=== PATIENT | male | born 1940 | race African-American/Black ===

== ENCOUNTER 2016-10-08 10:16 | Inpatient (IN) ==
[2016-10-08] MEDS ORDERED: ALUM/MAG/SIMETH/LIDO VISC 1:1 30 ML BOTTLE PO STA (10:47)
[2016-10-08] MEDS ORDERED: PANTOPRAZOLE 40 MG VIAL IV STA (10:47)
[2016-10-08] MEDS ORDERED: SODIUM CHLORIDE 0.9% 500 ML IV STA (10:47)
[2016-10-08] MEDS ORDERED: ONDANSETRON 4 MG/2 ML VIAL IV STA (10:47)
[2016-10-08] MEDS ORDERED: HYDROmorphone 2 MG/1 ML VIAL IV STA ×2 (10:47→16:17)
[2016-10-08] MEDS ORDERED: HYDROmorphone 2 MG/1 ML VIAL ONE ×2 (11:04→16:10)
[2016-10-08] MEDS ORDERED: PANTOPRAZOLE 40 MG VIAL IV ONE (11:04)
[2016-10-08] MEDS ORDERED: ONDANSETRON 4 MG/2 ML VIAL ONE (11:04)
[2016-10-08] MEDS ORDERED: ALUM/MAG/SIMETH/LIDO VISC 1:1 30 ML BOTTLE PO ONE ×2 (11:05→11:07)
[2016-10-08 11:29] LABS: Eosinophils # 0.1 10*3/uL (0.0-0.87); Eosinophils % 0.9 % (0.00-10.9); Hematocrit 32.9 VOL% (42.0-52.0); Hemoglobin 9.2 GM/DL (14.0-18.0); Immature Granulocytes % 0.5 %; Immature Granulocytes Absolute 0.03 #; Lymphocytes # 0.6 10*3/uL (1.4-4.0); Lymphocytes % 9.7 % (21.2-54.2); Mean Corpuscular Hemoglobin 21 PG (27-34); Mean Corpuscular Volume 74.9 FL (87-102); Monocytes # 0.7 10*3/uL (0.11-0.8); Monocytes % 11.5 % (1.7-12.7); Neutrophils # 4.9 10*3/uL (1.4-7.4); Neutrophils % 77.4 % (38.7-73.9); Platelet Count 228 T/CUMM (130-400); Red Blood Count 4.39 MC/CUMM (3.8-5.5); Red Cell Distribution Width 18.2 % (9.3-17.3); White Blood Count 6.4 T/CUMM (4-12)
--- NOTE | 2016-10-08 11:54 | Emergency Department Note ---
Adams Bhat Meredith, am scribing for, and in the presence of, Juan J Hawkins MD 10:49. Shruthi Bhat Charles R, MD, personally performed the services described in this documentation, ascribed by Namrata Lamas in my presence, and it is both accurate and complete . Arrival - Arrival Chief Complaint: Abdominal / Flank Pain Stated Complaint: abdominal pain ED Nursing Triage Note: Brought in per EMS from [facility] with c/o lower abdominal pain onset 10/05/16. +nausea/vomiting. +decreased appetite. Last bowel movement yesterday. Mode of Arrival: Stretcher Limitations: No Limitations Source: Patient, Significant other, Old Records Reviewed, RN Notes Reviewed Time Seen by Provider: 10/08/16 10:44 - History of Present Illness HPI Narrative: Pt is a 76 y/o black male transferred to the ED by EMS from [facility] for further evaluation of lower abdominal pain which onset on 10/05/16. He confirms nausea, vomiting, and decreased appetite. Pt has a history of HTN, NIDDM, decreased kidney function, GERD, and colon cancer. He has had an appendectomy, cholecystectomy, and colostomy. Onset (ago): day(s) Allergies/Adverse Reactions: Allergies Allergy/AdvReac Type Severity Reaction Status Date / Time lisinopril Allergy Unknown/Unable Verified 10/08/16 10:25 to obtain Penicillins Allergy Unknown/Unable Verified 10/08/16 10:25 to obtain valsartan [From Diovan] Allergy Unknown/Unable Verified 10/08/16 10:25 to obtain Home Medications: Home Medications Medication Instructions Recorded Confirmed Type Allopurinol [Zyloprim] 100 mg PO QAM 10/06/16 10/08/16 History Aspirin EC Tab 81 mg PO QAM 10/06/16 10/08/16 History Carvedilol 25 mg PO BID 10/06/16 10/08/16 History Colchicine [Colcrys] 0.6 mg PO Q1H PRN 10/06/16 10/08/16 History Cyclobenzaprine HCl 5 mg PO TID #30 tablet 10/06/16 10/08/16 Rx Esomeprazole Magnesium 40 mg PO QAM 10/06/16 10/08/16 History [Esomeprazole] Furosemide Tab [Lasix Tab] 40 mg PO BID DIURETIC 10/06/16 10/08/16 History Meloxicam [Mobic] 15 mg PO DAILY #15 tablet 10/06/16 10/08/16 Rx Tamsulosin [Flomax] 0.4 mg PO BID 10/06/16 10/08/16 History glyBURIDE [Glyburide] 2.5 mg PO QAM 10/06/16 10/08/16 History hydrALAZINE TAB [Apresoline Tab] 50 mg PO BID 10/06/16 10/08/16 History Review of System - Review of System 12 point system: reviewed and no additional remarkable complaints except as stated - Review of System Gastrointestinal: Present: as per HPI, abdominal pain, nausea, vomiting, other ( decreased appetite) Medical,Surgical,& Family Hx - Medical History Cardio: History of: Hypertension Endocrine: History of: Diabetes Mellitus (NIDDM) Renal: History of: Renal Problems (decreased kidney fuction) Gastrointestinal: History of: GERD, GI Problems (colon ca 1986; colostomy) - Surgical History Abdominal Surgeries: Surgical HX of: Appendectomy, Cholecystectomy - Family History Family History: Denies;: Additional Family History - Social History Smoking Status: Never smoker Frequency of Alcohol Use: None Type of Drug Use: None Exam Vital Signs: Vital Signs Temperature 97.6 F 10/08/16 10:16 Pulse Rate 99 H 10/08/16 10:16 Respiratory Rate 18 10/08/16 10:16 Blood Pressure 140/84 10/08/16 10:16 O2 Sat by Pulse Oximetry 100 10/08/16 10:16 - General General appearance: alert, in no apparent distress - Head Head exam: Present: atraumatic, normocephalic - Eye Eye exam: Present: normal appearance, PERRL, EOMI - ENT ENT exam: Present: mucous membranes moist, normal external ear exam - Neck Neck exam: Present: full ROM, trachea midline. Absent: tenderness, meningismus , lymphadenopathy, thyromegaly - Chest Chest inspection: Present: symmetric chest wall rise. Absent: tenderness, rash - Respiratory Respiratory exam: Present: normal lung sounds bilaterally. Absent: respiratory distress - Cardiovascular Cardiovascular exam: Present: regular rate, normal rhythm, normal heart sounds. Absent: murmur, rubs, gallop - Abdominal Exam Abdominal exam: Present: distention, tenderness (right lower quadrant and periumbilical tenderness), other (colostomy noted). Absent: normal bowel sounds (high pitched, tinkling bowel sounds) - Extremities Exam Extremities exam: Present: full ROM, normal capillary refill, pedal edema (1+ bilaterally ). Absent: tenderness, calf tenderness - Back Exam Back exam: Present: full ROM. Absent: tenderness - Neurological Exam Neurological exam: Present: alert, oriented X3, CN II-XII intact. Absent: motor sensory deficit - Psychiatric Psychiatric exam: Present: normal affect, normal mood - Skin Skin exam: Present: warm, dry, intact, normal color Course - Consultations Consultation #1: Dr. Robbins will admit patient Time: 12:23 Results - Labs CBC & BMP: 10/08/16 11:23 10/08/16 Unknown Lab Results: I have reviewed the patients labs Labs: Laboratory Tests 10/08/16 Unknown Lactic Acid 1.1 10/08/16 10/08/16 11:23 Unknown WBC 6.4 RBC 4.39 Hgb 9.2 L Hct 32.9 L MCV 74.9 L MCH 21 L MCHC 28.0 L RDW 18.2 H Plt Count 228 Neut % (Auto) 77.4 H Lymph % (Auto) 9.7 L Lymph # (Auto) 0.6 L Sodium 143 Potassium 4.4 Chloride 108 H Carbon Dioxide 23 Anion Gap 16.4 H BUN 60 H Creatinine 4.90 H Glucose 108 H Magnesium 1.6 L ALT < 9 L Alkaline Phosphatase 194 H Albumin 3.1 L Albumin/Globulin Ratio 0.9 L - Diagnostic Findings Procedure: Abdominal x-ray: report reviewed by me (Questionable partial small bowel obstruction with multiple surgical clips present in dilated small bowel and stomach. Relatively very little large bowel gas is present. At minimum abdominal ileus present. ), Chest x-ray: report reviewed by me (No acute cardiopulmonary process. ), CT Abdomen and Pelvis: report reviewed by me ( Limited exam secondary to lack of intravenous or oral contrast material. ) Disposition Clinical Impression: Abdominal pain, Small bowel obstruction, Chronic renal failure, Hypomagnesemia Case discussed with: patient, patient's family Disposition: Still a Patient Condition: Stable Time of Disposition: 12:25
--- NOTE | 2016-10-08 12:01 | XRay Report ---
Exam: XR chest 1V portable Date: 10/08/2016 10:48 AM Indication: Abdominal pain Comparison: 06/02/2014 Technical: AP Findings: Borderline cardiac prominence present. External cardiac leads are present. Mediastinum and bony structures are otherwise intact. The lungs are clear. Impression: 1. No acute cardiopulmonary pathology PROCEDURE INTERPRETED AT [facility] DEPARTMENT OF RADIOLOGY Final Report Signed by: Dr. Ernie Rapp
[2016-10-08 12:02] LABS: Lactic Acid 1.1 MMOL/L (0.4-2.0)
--- NOTE | 2016-10-08 12:02 | EKG Report ---
Stationary ECG Study [facility] ER Test Date: 10/08/2016 12:00:08 PM Pat Name: ADWOA PENA Department: Room: Gender: M Issue Clerk: : 1940 Requested by: Juan J Meyer Order Number: [id number] Reading MD: MYA POWELL Intervals [place] Rate: 94 P: 41 NV: 182 QRS: -24 QRSD: 95 T: -16 QT: 343 QTc: 395 Interpretive Statements SINUS RHYTHM VOLTAGE CRITERIA FOR LVH LEFT AXIS DEVIATION Electronically Signed On 10-08-16 12:59:27 [employer] WORK[employer] by MYA POWELL [email or web address]
--- NOTE | 2016-10-08 12:04 | CT Report ---
CT abdomen pelvis wo con Indication: Abdominal/pelvic pain Comparison: CT abdomen pelvis dated October 20, 2011 Technique: Multiple axial tomographic images of the abdomen and pelvis were obtained without the use of intravenous contrast. Findings: Innumerable predominantly small hypodense hepatic lesions are again demonstrated throughout the liver, similar in size and distribution considering change in technique. Gallbladder surgically absent. Pancreas and spleen appear grossly unchanged. Bilateral adrenal glands grossly unremarkable. Moderate bilateral hydronephrosis. Irregular soft tissue attenuation again noted within the rectal/presacral region. Multiple clips again noted within the presacral space. There are 2 hernia defects within the left mid abdomen containing small bowel, 1 the site of prior ostomy. Left lower quadrant colostomy noted. There is dilatation of small bowel with air-fluid levels throughout the abdomen with transition point suggested within the presacral region adjacent to the surgical clips. Findings suggest small bowel obstruction. Anastomotic suture material also noted within the right lower quadrant adjacent to the presacral space which may reflect a site of transition. Mild atherosclerotic calcifications present. Right total hip prosthesis. Degenerative change of the spine present. Hyperdensity noted throughout the osseous structures suggestive of renal osteodystrophy. IMPRESSION: Limited exam secondary to lack of intravenous and oral contrast material. Findings suspicious for small bowel obstruction with transition suggested within the presacral/right lower quadrant region at the site of surgical clips and anastomotic suture material. Moderate bilateral hydronephrosis. There are postoperative changes of the abdomen. There are 2 hernia defects within the left mid abdomen containing small bowel, 1 the site of prior ostomy. Left lower quadrant colostomy noted. There has been prior colectomy with irregular soft tissue attenuation within the presacral/rectal space, not significantly changed from comparison study. Innumerable predominantly small hypodense hepatic lesions are again demonstrated throughout the liver, similar in size and distribution considering change in technique. PROCEDURE INTERPRETED AT [facility] DEPARTMENT OF RADIOLOGY Final Report Signed by: Dr Lebron Lehman
--- NOTE | 2016-10-08 12:05 | XRay Report ---
Exam: XR abdomen complete w decub Date: 10/08/2016 10:48 AM Indication: Abdominal pain Comparison: 10/06/2016 Technical: Supine imaging Findings: Multiple surgical clips are present. Dilated gastric findings present. Dilated small bowel loops are present in the left lower abdomen measuring up to 4.7 cm. A right total hip prosthesis is present. The liver, spleen and renal shadows are not well seen. Lateral marginal osteophytes are present. No obvious pneumoperitoneum on supine images. Impression: Questionable partial small bowel obstruction with multiple surgical clips present in dilated small bowel and stomach. Relatively very little large bowel gas is present. At minimum abdominal ileus present. PROCEDURE INTERPRETED AT [facility] DEPARTMENT OF RADIOLOGY Final Report Signed by: Dr. Ernie Rapp
[2016-10-08 12:13] LABS: Hypochromasia 1+; Polychromasia Slight; Target Cells Slight
[2016-10-08 12:18] LABS: Alanine Aminotransferase < 9 U/L (16-61); Albumin 3.1 G/DL (3.4-5.0); Alkaline Phosphatase 194 U/L (45-117); Amylase 26 U/L (25-115); Aspartate Amino Transferase 9 U/L (0-37); Blood Urea Nitrogen 60 MG/DL (7-18); Calcium 8.9 MG/DL (8.5-10.1); Glucose 108 MG/DL (74-106); Magnesium 1.6 MG/DL (1.8-2.4); Potassium 4.4 MMOL/L (3.5-5.1); Sodium 143 MMOL/L (136-145); Total Protein 6.4 G/DL (6.4-8.3); Troponin I Only < 0.015 NG/ML (0.00-0.045)
[2016-10-08] MEDS ORDERED: MAGNESIUM SULF RIDER 2 GM in PREMIX 1 EACH IV STA (12:23)
--- NOTE | 2016-10-08 13:21 | XRay Report ---
Exam: XR chest 1V portable Date: 10/08/2016 12:56 PM Indication: Nasogastric tube placement Comparison: 10/08/201611:49 AM same date Technical: AP portable Findings: Nasogastric tube has been placed with the distal tip in the stomach. Mild cardiac prominence. Patchy interstitial alveolar densities are present. No pneumothorax. Bony structures are intact. Impression: 1. Satisfactory placement nasogastric tube 2. Persistent cardiomegaly PROCEDURE INTERPRETED AT [facility] DEPARTMENT OF RADIOLOGY Final Report Signed by: Dr. Ernie Rapp
[2016-10-08] MEDS ORDERED: ACETAMINOPHEN 325 MG TABLET PO PRN (14:00)
[2016-10-08] MEDS ORDERED: LACTATED RINGERS 1,000 ML IV SCH (14:00)
--- NOTE | 2016-10-08 14:54 | General Surg History&Physical ---
Assessment and Plan - Time spent with patient Time spent with patient: Less than 30 minutes (1) Small bowel obstruction Status: Acute Assessment and plan: 76-year-old -[place] male with history of colorectal cancer, hypertension, diabetes, renal failure admitted by Dr. Landry with small bowel obstruction. Patient is undergone multiple abdominal surgeries with the last one being in 2011. NG tube has already been placed with greater than 500 cc of output. He does have output in his ostomy bag. His abdomen is now soft and nontender. Will admit the patient for observation and try to resolve the small bowel obstruction conservatively. Patient's creatinine is 4.9 and he is a patient of Dr. Vazquez so will consult him to follow. We will also consult hospitalist for medical management of this patient with diabetes and hypertension on n.p.o. status. Dr. Landry has seen and examined patient. Current Visit: Yes History of Present Illness Chief complaint: Abdominal pain History of present illness: 76-year-old -[place]oc[place] male with history of diabetes, hypertension, renal failure with baseline creatinine around 4-4.5, colorectal cancer came into the ED with a 3 day history of abdominal pain, nausea, vomiting. He came into the ED on 10/06 with complaints of lower abdominal pain, bilateral hip pain , and lower back pain. Patient felt it was a an allergic reaction to some prednisone he received from his primary care doctor. Dr. Ochoa felt it was suggestive of exacerbation of his chronic low back pain and bilateral hip pain. Patient did not have an acute abdomen at that time and he declined further evaluation including blood work and CT scan. Patient stated that he would return if symptoms progressed. Patient states in the last 24 hours the pain is increased along with the nausea and vomiting. Patient states he did have a bowel movement yesterday. Patient has a history of multiple abdominal surgeries. He had colorectal cancer surgery in 1985 with a left lower quadrant colostomy. He was last seen here in October 2011 for partial colectomy with new end colostomy in the left upper quadrant, repair of an incarcerated parastomal hernia with preperitoneal placement of mesh with perforated colon and associated peritonitis. He had sepsis and acute renal failure and elevated troponins at that time. He has also had 2 hernia repairs, cholecystectomy, back surgery, and hip surgery. Today his workup showing abdominal x-ray with questionable partial small bowel obstruction with multiple surgical clips present in a dilated small bowel and stomach. It is also showing very little large bowel gas present. CT of the abdomen and pelvis without contrast is suspicious for small bowel obstruction with transition suggested within the presacral or right lower quadrant region at the site of surgical clips and anastomotic suture material. There are 2 hernia defects within the left mid abdomen containing small bowel one at the site of the prior ostomy. Patient also has small hypodense hepatic lesions demonstrated throughout the liver that are similar in size and distribution to his last CT scan. His white blood cell count is normal at 6.4, H&H is 9.2/32.9, platelets 228, creatinine is 4.9, magnesium 1.6, LFTs okay, ALP mildly elevated at 194, lipase normal at 79. Patient is afebrile with pulse rate around 99 and blood pressure 140/84. Upon exam patient has NG tube placed with copious amounts of creamy yellow output. His abdomen is obese with multiple well-healed scars throughout the abdomen from his previous surgeries. He has no complaints of pain. He denies any shortness of breath or chest pain. He does have a left lower quadrant ostomy with almost a full bag of runny stool. Dr. Landry has been asked to admit. Home Medications Medication Instructions Recorded Confirmed Type Allopurinol [Zyloprim] 100 mg PO QAM 10/06/16 10/08/16 History Aspirin EC Tab 81 mg PO QAM 10/06/16 10/08/16 History Carvedilol 25 mg PO BID 10/06/16 10/08/16 History Colchicine [Colcrys] 0.6 mg PO Q1H PRN 10/06/16 10/08/16 History Cyclobenzaprine HCl 5 mg PO TID #30 tablet 10/06/16 10/08/16 Rx Esomeprazole Magnesium 40 mg PO QAM 10/06/16 10/08/16 History [Esomeprazole] Furosemide Tab [Lasix Tab] 40 mg PO BID DIURETIC 10/06/16 10/08/16 History Meloxicam [Mobic] 15 mg PO DAILY #15 tablet 10/06/16 10/08/16 Rx Tamsulosin [Flomax] 0.4 mg PO BID 10/06/16 10/08/16 History glyBURIDE [Glyburide] 2.5 mg PO QAM 10/06/16 10/08/16 History hydrALAZINE TAB [Apresoline Tab] 50 mg PO BID 10/06/16 10/08/16 History Allergies Allergy/AdvReac Type Severity Reaction Status Date / Time lisinopril Allergy Unknown/Unable Verified 10/08/16 10:25 to obtain Penicillins Allergy Unknown/Unable Verified 10/08/16 10:25 to obtain valsartan [From Diovan] Allergy Unknown/Unable Verified 10/08/16 10:25 to obtain Medical,Surgical,& Family Hx - Medical History Cardio: History of: Hypertension Endocrine: History of: Diabetes Mellitus (NIDDM) Renal: History of: Renal Problems (decreased kidney fuction) Gastrointestinal: History of: GERD, GI Problems (colon ca 1985; colostomy) - Surgical History Abdominal Surgeries: Surgical HX of: Appendectomy, Cholecystectomy - Family History Family History: Denies;: Additional Family History - Social History Smoking Status: Never smoker Frequency of Alcohol Use: None Type of Drug Use: None Exam - Constitutional Vitals: Period Temp Pulse Resp BP Sys/Cotto Pulse Ox Last 24 Hr 97.6 F-97.6 F 99-99 18-18 140-140/84-84 100 76-year-old -[place]oc[place] male, no acute distress, alert and oriented is present Chest clear CV regular rate and rhythm Abdomen obese nontender, well-healed scars from previous surgeries, ostomy in left lower quadrant with good output Extremities mild pedal edema - Constitutional Constitutional: Present: as per HPI Results - Labs CBC & BMP: 10/08/16 11:23 10/08/16 Unknown Lab Results: I have reviewed the past 24 hour labs - Diagnostic Findings Procedure: Abdominal Flat/Erect: image reviewed by me, report reviewed by me ( Questionable small bowel obstruction), CT Abdomen and Pelvis: image reviewed by me, report reviewed by me (Questionable small bowel obstruction)
--- NOTE | 2016-10-08 15:05 | XRay Report ---
XR abdomen complete w decub Indication: Generalized abdominal pain Comparison: Abdominal x-ray dated October 08, 2016 at 1114 Technique: Frontal views of the abdomen and the supine and left lateral decubitus position. Findings: Redemonstration of moderate to large dilatation of small bowel within the left abdomen suspicious for small bowel obstruction. Finding is not significantly changed from comparison exam. Multiple surgical clips again noted throughout the abdomen and pelvis. Osseous structures appear unchanged. There is total right hip prosthesis as well as degenerative change of the lumbar spine noted. IMPRESSION: No significant interval change. Findings again suspicious for small bowel obstruction. PROCEDURE INTERPRETED AT [facility] DEPARTMENT OF RADIOLOGY Final Report Signed by: Dr Lebron Lehman
--- NOTE | 2016-10-08 15:13 | Nephrology Consult Note ---
History of Present Illness Chief complaint: SBO, CKD4 History of present illness: Mr. Weir is a 76 year old male with a history of chronic renal failure stage IV. His creatinine in July in our office was 4.8. He has gout by history and now presents with small bowel obstruction. The status post bowel surgery in the remote past. He has been unable to eat for 4 days but has been able to keep water down he says if he drinks anything other than watery vomits knees had no appetite and been unable to eat for the 4 days. On exam his chest is clear and he is able to lie flat. He has 1+ edema of both legs his abdomen is soft. An NG tube is in place and draining yellow gastric contents with no evidence of bleeding. Laboratory demonstrates creatinine of 4.9 which is compatible with his baseline. Impression: Small bowel obstruction #2 chronic renal failure stage IV #3 history of hypertension Plan: Agree with NG suction and fluid administration. We will follow with you thank you Home Medications Medication Instructions Recorded Confirmed Type Allopurinol [Zyloprim] 100 mg PO QAM 10/06/16 10/08/16 History Aspirin EC Tab 81 mg PO QAM 10/06/16 10/08/16 History Carvedilol 25 mg PO BID 10/06/16 10/08/16 History Colchicine [Colcrys] 0.6 mg PO Q1H PRN 10/06/16 10/08/16 History Cyclobenzaprine HCl 5 mg PO TID #30 tablet 10/06/16 10/08/16 Rx Esomeprazole Magnesium 40 mg PO QAM 10/06/16 10/08/16 History [Esomeprazole] Furosemide Tab [Lasix Tab] 40 mg PO BID DIURETIC 10/06/16 10/08/16 History Meloxicam [Mobic] 15 mg PO DAILY #15 tablet 10/06/16 10/08/16 Rx Tamsulosin [Flomax] 0.4 mg PO BID 10/06/16 10/08/16 History glyBURIDE [Glyburide] 2.5 mg PO QAM 10/06/16 10/08/16 History hydrALAZINE TAB [Apresoline Tab] 50 mg PO BID 10/06/16 10/08/16 History Allergies Allergy/AdvReac Type Severity Reaction Status Date / Time lisinopril Allergy Unknown/Unable Verified 10/08/16 10:25 to obtain Penicillins Allergy Unknown/Unable Verified 10/08/16 10:25 to obtain valsartan [From Diovan] Allergy Unknown/Unable Verified 10/08/16 10:25 to obtain Medical,Surgical,& Family Hx - Medical History Cardio: History of: Hypertension Endocrine: History of: Diabetes Mellitus (NIDDM) Renal: History of: Renal Problems (decreased kidney fuction) Gastrointestinal: History of: GERD, GI Problems (colon ca 1985; colostomy) - Surgical History Abdominal Surgeries: Surgical HX of: Appendectomy, Cholecystectomy - Family History Family History: Denies;: Additional Family History - Social History Smoking Status: Never smoker Frequency of Alcohol Use: None Type of Drug Use: None Review of Systems 12 point system: reviewed and no additional remarkable complaints except as stated Exam - Vital Signs Vital signs: Period Temp Pulse Resp BP Sys/Cotto Pulse Ox Last 24 Hr 97.6 F-97.6 F 99-99 18-18 140-140/84-84 100 - General Appearance General appearance: obese EENT: ATNC Neck: no JVD, no thyromegaly, no carotid bruit, supple Respiratory: no kyphosis, no scoliosis Cardiology: no murmurs, no rub, no gallops, no edema, regular rate, regular rhythm, normal S1, normal S2 Gastrointestinal: no tenderness, obese Integumentary: no rash, warm and dry Neurologic: no focal deficit, no asterixis, alert and oriented x3, reflexes 2+ and symmetric, gait normal, strength 5/5 Musculoskeletal: no deformities, no erythema, no cyanosis, no clubbing Psychiatric: mood/affect appropriate, cooperative Results - Labs CBC & BMP: 10/08/16 11:23 10/08/16 Unknown Lab Results: I have reviewed the past 24 hour labs Assessment and Plan (1) Chronic renal failure Status: Acute Current Visit: Yes (2) Small bowel obstruction Status: Acute Current Visit: Yes Specialty Discharge - Follow Up or Referrals - Speciality Discharge Instructions Nephrology Instructions: Fluid support during NG suction
[2016-10-08] MEDS: PANTOPRAZOLE 40 MG VIAL IV SCH (17:25)
[2016-10-08] MEDS: CARVEDILOL 25 MG TABLET PO SCH ×2 (17:30→21:02)
[2016-10-08] MEDS: TAMSULOSIN 0.4 MG CAPSULE PO SCH ×2 (17:30→21:02)
[2016-10-08] MEDS: FUROSEMIDE 40 MG TABLET PO SCH (17:30)
[2016-10-08] MEDS: CYCLOBENZAPRINE 10 MG TABLET PO SCH ×2 (17:30→21:02)
[2016-10-08] MEDS: DEXTROSE 5% NACL 0.45% 1,000 ML IV SCH (17:54)
--- NOTE | 2016-10-08 18:15 | Hospitalist Consult Note ---
Assessment and Plan (1) Abdominal pain Status: Acute Current Visit: Yes (2) Chronic renal failure Status: Acute Current Visit: Yes (3) Hypomagnesemia Status: Acute Current Visit: Yes (4) Small bowel obstruction Status: Acute Current Visit: Yes (5) Chronic hip pain Status: Acute Current Visit: No (6) Chronic low back pain Status: Acute Current Visit: No (7) Diffuse abdominal pain Status: Acute Current Visit: No (8) Diabetes Status: Acute Current Visit: Yes (9) Hypertension Status: Acute Assessment and plan: Our plan will be to follow along with you. I will address diabetes and hypertension. Currently patient is nothing by mouth. He needs some IV medication for his blood pressure and a sliding scale for his diabetes. Recommend repeating labs in the morning. Current Visit: Yes History of Present Illness - Consult Narrative Reason for consult: medical issues History of present illness: Mr. Weir is a 76 year old male with past medical history of diabetes hypertension chronic renal insufficiency colorectal cancer presented to the emergency room with abdominal pain nausea vomiting. Symptoms have been going on for approximately 3 days. He was in the emergency room on the complaining about lower abdominal pain, or hip pain. But they felt that it was a exacerbation of his chronic pain. Patient informed staff that for the last 24 hours the pain in his abdomen has increased along with the nausea and vomiting. He did have a bowel movement yesterday. This patient has had multiple abdominal surgeries. He had colorectal surgery 1995 with a left lower quadrant colostomy. He also had 2 hernia repairs cholecystectomy back and hip surgery. Today the workup was done with a CT scan of the abdomen and pelvis suspicious for small bowel obstruction. He was admitted to surgery service and a consult at both nephrology and hospitalist for his medical problems CC: Shaun Landry MD - Home Medications and Allergies Home Medications: Home Medications Medication Instructions Recorded Confirmed Type Allopurinol [Zyloprim] 100 mg PO QAM 10/06/16 10/08/16 History Aspirin EC Tab 81 mg PO QAM 10/06/16 10/08/16 History Carvedilol 25 mg PO BID 10/06/16 10/08/16 History Colchicine [Colcrys] 0.6 mg PO Q1H PRN 10/06/16 10/08/16 History Esomeprazole Magnesium 40 mg PO QAM 10/06/16 10/08/16 History [Esomeprazole] Furosemide Tab [Lasix Tab] 40 mg PO BID DIURETIC 10/06/16 10/08/16 History Tamsulosin [Flomax] 0.4 mg PO BID 10/06/16 10/08/16 History glyBURIDE [Glyburide] 2.5 mg PO QAM 10/06/16 10/08/16 History hydrALAZINE TAB [Apresoline Tab] 50 mg PO BID 10/06/16 10/08/16 History Allergies/Adverse Reactions: Allergies Allergy/AdvReac Type Severity Reaction Status Date / Time lisinopril Allergy Unknown/Unable Verified 10/08/16 10:25 to obtain Penicillins Allergy Unknown/Unable Verified 10/08/16 10:25 to obtain valsartan [From Diovan] Allergy Unknown/Unable Verified 10/08/16 10:25 to obtain Medical,Surgical,& Family Hx - Medical History Cardio: History of: Hypertension Endocrine: History of: Diabetes Mellitus (NIDDM) Renal: History of: Renal Problems (decreased kidney fuction) Gastrointestinal: History of: GERD, GI Problems (colon ca 1985; colostomy) - Surgical History Abdominal Surgeries: Surgical HX of: Appendectomy, Cholecystectomy - Family History Family History: Denies;: Additional Family History - Social History Smoking Status: Never smoker Frequency of Alcohol Use: None Type of Drug Use: None 12 point system: reviewed and no additional remarkable complaints except as stated Exam - Constitutional General appearance: over weight - Head Head exam: Present: normal inspection - Eye Pupils: Present: BELLE - ENT ENT exam: Present: normal exam - Neck Neck exam: Present: normal inspection - Respiratory Respiratory exam: Present: clear to auscultation bilaterally - Cardiovascular Cardiovascular exam: Present: regular rate and rhythm - GI/Abdominal GI/Abdominal exam: Present: hypoactive bowel sounds - Extremities Exam Extremities exam: Present: normal inspection - Back Exam Back exam: Present: normal inspection - Neurological Exam Neurological exam: Present: alert, oriented X3 - Psychiatric Psychiatric exam: Present: normal affect Results - Labs CBC & BMP: 10/08/16 11:23 10/08/16 Unknown
[2016-10-08] MEDS ORDERED: INFLUENZA VIRUS VACCINE 0.5 ML SYRINGE IM ONE (18:36)
[2016-10-08] MEDS ORDERED: PNEUMOCOCCAL VACCINE (13 VALENT) 0.5 ML SYRINGE IM ONE (18:36)
[2016-10-08] MEDS ORDERED: GLUCAGON 1 MG VIAL IM PRN (18:56)
[2016-10-08] MEDS ORDERED: DEXTROSE 50% 25 GM/50 ML VIAL IV PRN (18:56)
[2016-10-08] MEDS ORDERED: hydrALAZINE 20 MG/1 ML VIAL IV PRN (18:57)
[2016-10-08] MEDS: HYDROmorphone 2 MG/1 ML VIAL IV PRN (21:37)
[2016-10-09] MEDS: INSULIN REGULAR 100 UNIT/ML SUBCUT SCH ×4 (00:24→19:04)
[2016-10-09] MEDS: DEXTROSE 5% NACL 0.45% 1,000 ML IV SCH ×4 (03:16→22:32)
[2016-10-09 08:08] LABS: Basophils % 0.2 % (0.0-0.8); Eosinophils # 0.1 10*3/uL (0.0-0.87); Eosinophils % 2.4 % (0.00-10.9); Hematocrit 31.7 VOL% (42.0-52.0); Immature Granulocytes % 0.4 %; Immature Granulocytes Absolute 0.02 #; Lymphocytes # 0.5 10*3/uL (1.4-4.0); Lymphocytes % 10.2 % (21.2-54.2); Mean Corpuscular HGB Conc 27.4 GM/DL (32-36); Mean Corpuscular Hemoglobin 21 PG (27-34); Mean Corpuscular Volume 76.6 FL (87-102); Monocytes # 0.7 10*3/uL (0.11-0.8); Monocytes % 14.3 % (1.7-12.7); Neutrophils # 3.6 10*3/uL (1.4-7.4); Neutrophils % 72.5 % (38.7-73.9); Platelet Count 246 T/CUMM (130-400); Red Blood Count 4.14 MC/CUMM (3.8-5.5); Red Cell Distribution Width 18.2 % (9.3-17.3)
[2016-10-09 08:09] LABS: Hemoglobin 8.7 GM/DL (14.0-18.0)
--- NOTE | 2016-10-09 08:09 | CT Report ---
Exam: CT abdomen pelvis wo con Date: 10/09/2016 718 AM Comparison: 10/08/2016 without contrast Indication: Small bowel obstruction Total DLP: 907.5 mGy*cm Technical: Oral contrast was administered. Images were obtained from the lung bases to the iliac crest continuation through the pelvis without oral contrast with axial sagittal coronal imaging available for review. Dose reduction was performed with decreasing kv and mA and automated exposure Findings: Lung bases: No obvious consolidating infiltrate. Tiny effusions and pleural thickening are present. The heart is normal in size. Liver and Spleen: Too numerous to count cysts are present within the liver with some calcifications. Spleen is unremarkable. Gallbladder and Pancreas: Prior cholecystectomy. The pancreas is unremarkable. Adrenals: Unremarkable Kidneys: Bilateral dilatation of the renal collecting system and dilated ureters are present extending into the pelvis bilaterally. This is worse on the right in the left. Stomach: Partially distended with oral contrast and air fluid and debris with nasogastric tube in place. Retroperitoneum: No enlarged lymph nodes. Aorta and IVC: Vascular calcinosis and plaque in the aorta and iliac vessels. Aorta and IVC are not otherwise evaluated without contrast Bowel and Mesentery: Dilated small bowel loops are present with a spigelian hernia present with bowel extending into the hernia in the left lower abdomen. . Ostomy is present adjacent to the hernia sac. Ventral hernia is present also with bowel extending towards the left just adjacent to the periumbilical region. No obvious contrast within the ileal region or large bowel. Surgical clips present over the right lower bowel and in the deep pelvis. Surgical clips present along the right anterior abdominal wall extending towards the midline. Pelvis: Bladder: Incompletely distended with fluid Fluid: No free fluid identified. Lymph nodes: No enlarged lymph nodes. Pelvic organs: Unremarkable Osseous structures: Right total hip prosthesis is present with the morning artifact. Impression: 1. Large spigelian hernia/ ventral hernia with bowel extending into the hernia suggestive of a component of partial small bowel obstruction.. Ostomy is also present left lower quadrant. 2. Multiple surgical changes noted. 3. Bilateral hydronephrosis present. Distal obstruction of the ureters associated with scarring or recurrent disease in the posterior aspect the bladder and lower rectal region with surgical clips present. 4. Polycystic liver disease 5. Prior cholecystectomy. Critical test result called to Dr. Robbins at the time of dictation PROCEDURE INTERPRETED AT [facility] DEPARTMENT OF RADIOLOGY Final Report Signed by: Dr. Ernie Rapp
[2016-10-09 08:16] LABS: Calcium 8.6 MG/DL (8.5-10.1); Osmolality,Calculated 305.8 MOS/KG (273-304); Potassium 4.2 MMOL/L (3.5-5.1)
[2016-10-09 08:27] LABS: Elliptocytes Few; Hypochromasia Slight; Platelet Estimate Normal
[2016-10-09 08:28] LABS: Ovalocytes Slight
--- NOTE | 2016-10-09 08:30 | General Surgery Progress Note ---
Assessment and Plan (1) Small bowel obstruction Status: Acute Assessment and plan: Impression: Partial small bowel obstruction, ventral hernias Plan: Patient overall feels better. We'll continue NG tube decompression. I' ve reviewed with the CT images and discussed them with Dr. Rapp. Dr. Rapp suspects partial bowel bowel obstruction due to the hernia but I'm able to easily reduce it. His pain seems to be more on the right than near the hernia. Is no obvious transition point on the CT scan. He has liver masses that he states has been there since 1985. He was told they were benign at the time of his bowel resection. We'll check a CEA and alpha-fetoprotein to make sure there is no evidence of recurrence or anything new in the liver. He has renal insufficiency and Dr. Rapp notes that the ureters are involved in scar tissue in the pelvis and feels that they are possibly both partially compressed noting changes from previous CT scans. Will consult urology to see if he needs further evaluation and possible stenting. Nephrology and Hospital medicine are following and appreciate their help. Will recheck abdominal x- rays in the morning and repeat his labs tomorrow. Continue conservative management. He understands that if he fails to improve he may require laparotomy. Current Visit: Yes Subjective Patient reports: Present: no new complaints, feels better Narrative: Patient was feeling much better this morning Until he got the contrast administered and began to have a little bit more pain. He states overall he feels better since admission. He's had about 50 mL out of his stoma since the VAC was changed last night. Minimal amount of air present. Exam - Constitutional Vitals: Period Temp Pulse Resp BP Sys/Cotto Pulse Ox Last 24 Hr 98.2 F-98.4 F 88-96 17-20 105-142/66-89 96-100 General appearance: no acute distress - Head Head exam: Present: normocephalic - ENT Mouth exam: Present: normal external inspection - Neck Neck exam: Present: normal inspection - Respiratory Respiratory exam: Present: clear to auscultation bilaterally - Cardiovascular Cardiovascular exam: Present: RRR - GI/Abdominal GI/Abdominal exam: Present: soft (obese and possibly mildly distended. Hypoactive bowel sounds. Minimal tenderness elicited. No peritoneal signs. He has a reducible left abdominal wall hernia. His tenderness is just to the right of midline and very mild.) - Extremities Exam Extremities exam: Present: normal inspection - Back Exam Back exam: Present: normal inspection - Neurological Exam Neurological exam: Present: alert, oriented X3 Speech: Present: normal - Skin Skin exam: Present: normal color (the stoma is pink and patent) Results - Labs CBC & BMP: 10/09/16 07:09 10/09/16 07:09 Lab Results: I have reviewed the past 24 hour labs
[2016-10-09 08:47] LABS: AFP Tumor 6.9 NG/ML (0-8)
--- NOTE | 2016-10-09 08:49 | Nephrology Progress Note ---
Nephrology - PN: Subj Interval history: Noted CT to have bilateral hydronephrosis and his bladder is full. Being without difficulty. Creatinine is 1.4 today very little change. Continuing to receive IV fluid appropriately and NG suction ongoing. His chest is clear and is in no distress other than some abdominal discomfort which followed the administration of oral contrast this morning for CT scan. Will check residual urines with a bladder scan and if significant We'll place a Hernandez. Exam (PN)-Nephrology - Vital Signs Vital signs: Period Temp Pulse Resp BP Sys/Cotto Pulse Ox Last 24 Hr 98.2 F-98.4 F 88-96 17-20 105-142/66-89 96-100 - Lab 10/09/16 07:09 10/09/16 07:09 Most recent lab results Calcium 8.6 MG/DL (8.5-10.1) 10/09/16 07:09 Magnesium 1.6 MG/DL (1.8-2.4) L 10/08/16 Unknown Assessment and Plan (1) Chronic renal failure Status: Acute Current Visit: Yes (2) Small bowel obstruction Status: Acute Current Visit: Yes
[2016-10-09 08:51] LABS: Carcinoembryonic Antigen < 0.5 NG/ML (0.0-5.0)
[2016-10-09] MEDS: CYCLOBENZAPRINE 10 MG TABLET PO SCH ×3 (10:02→21:29)
[2016-10-09] MEDS: glyBURIDE 2.5 MG TABLET PO SCH (10:02)
[2016-10-09] MEDS: CARVEDILOL 25 MG TABLET PO SCH ×2 (10:02→21:29)
[2016-10-09] MEDS: FUROSEMIDE 40 MG TABLET PO SCH ×2 (10:02→16:09)
[2016-10-09] MEDS: ASPIRIN EC 81 MG TABLET PO SCH (10:02)
[2016-10-09] MEDS: ALLOPURINOL 100 MG TABLET PO SCH (10:03)
[2016-10-09] MEDS: TAMSULOSIN 0.4 MG CAPSULE PO SCH ×2 (10:03→21:29)
[2016-10-09] MEDS: ENOXAPARIN 30 MG/0.3 ML SYRINGE SUBCUT SCH (11:18)
[2016-10-09] MEDS: HYDROmorphone 2 MG/1 ML VIAL IV PRN ×3 (11:29→22:31)
[2016-10-09] MEDS: PANTOPRAZOLE 40 MG VIAL IV SCH (11:30)
--- NOTE | 2016-10-09 12:32 | Hospitalist Progress Note ---
Hospitalist: Subjective Interval history: Pt reports lower right sided abdominal pain has resolved before he went for CT abd/pelvis. After receiving contrast, he states lower cramping abdominal pain has returned and it is 6/10 with no radiation. No nausea or vomiting. NGT still in place. +small amount of brown liquid stool via colostomy. No fever. No cp or SOB. Occasional cough productive of clear- yellowish sputum Exam - Constitutional Vitals: Period Temp Pulse Resp BP Sys/Cotto Pulse Ox Last 24 Hr 98.0 F-98.4 F 88-97 17-20 105-142/66-89 96-100 General appearance: no acute distress, mild distress (due to pain), over weight - Head Head exam: Present: normal inspection, normocephalic, atraumatic - Eye Eye exam: Present: EOMI. Absent: conjunctival injection, nystagmus, scleral icterus Pupils: Present: BELLE - ENT ENT exam: Absent: normal exam (normal except dry oral mucosa) - Neck Neck exam: Present: normal inspection. Absent: lymphadenopathy, tenderness, thyromegaly - Respiratory Respiratory exam: Present: clear to auscultation bilaterally. Absent: accessory muscle use - Cardiovascular Cardiovascular exam: Present: regular rate and rhythm. Absent: diastolic murmur , systolic murmur - GI/Abdominal GI/Abdominal exam: Present: distended, hypoactive bowel sounds, soft. Absent: mass, organomegaly (colostomy in place) - Extremities Exam Extremities exam: Present: normal inspection, normal capillary refill, calf tenderness. Absent: edema - Neurological Exam Neurological exam: Present: alert, oriented X3 - Psychiatric Psychiatric exam: Present: normal affect, normal mood - Skin Skin exam: Present: normal color, warm, dry Results - Labs CBC & BMP: 10/09/16 07:09 10/09/16 07:09 - Impressions * Acute SBO- NGT, IVF, attempting conservative mgt per surgery/ Primary service * CKD * DM2 * Essential hypertension * Chronic Gout Accuchecks controlled in 140's. Cont I.S.S. and accuchecks ac,hs Cont IV antihypertensives as needed Serial labs Possibly may be able to go ice chips if surgery agrees. Following along with you. D/W family and pt. Surgery and renal notes reviewed.
[2016-10-10] MEDS: INSULIN REGULAR 100 UNIT/ML SUBCUT SCH ×4 (00:27→19:13)
[2016-10-10] MEDS: HYDROmorphone 2 MG/1 ML VIAL IV PRN ×3 (04:18→22:39)
[2016-10-10 05:51] LABS: Calcium 8.8 MG/DL (8.5-10.1); Osmolality,Calculated 303.1 MOS/KG (273-304); Potassium 4.2 MMOL/L (3.5-5.1)
[2016-10-10 06:08] LABS: Basophils % 0.2 % (0.0-0.8); Eosinophils # 0.1 10*3/uL (0.0-0.87); Eosinophils % 2.6 % (0.00-10.9); Hematocrit 31.8 VOL% (42.0-52.0); Hemoglobin 8.7 GM/DL (14.0-18.0); Immature Granulocytes % 0.6 %; Immature Granulocytes Absolute 0.03 #; Lymphocytes # 0.6 10*3/uL (1.4-4.0); Lymphocytes % 11.5 % (21.2-54.2); Mean Corpuscular HGB Conc 27.4 GM/DL (32-36); Mean Corpuscular Hemoglobin 21 PG (27-34); Mean Corpuscular Volume 76.4 FL (87-102); Monocytes # 0.8 10*3/uL (0.11-0.8); Monocytes % 14.5 % (1.7-12.7); Neutrophils # 3.8 10*3/uL (1.4-7.4); Neutrophils % 70.6 % (38.7-73.9); Platelet Count 236 T/CUMM (130-400); Red Blood Count 4.16 MC/CUMM (3.8-5.5); Red Cell Distribution Width 18.2 % (9.3-17.3); White Blood Count 5.4 T/CUMM (4-12)
[2016-10-10 06:10] LABS: Elliptocytes Few; Hypochromasia 1+; Platelet Estimate Adequate
--- NOTE | 2016-10-10 08:18 | Nephrology Progress Note ---
Nephrology - PN: Subj Interval history: Mr. Weir had over 500 mL residual urine this morning. He is currently in x- ray for follow-up KUB. We'll beplacing a Hernandez catheter. His creatinines up to 5.7 from 4.9 and we'll see what the catheter drainage does for that. We'll check back later today. Exam (PN)-Nephrology - Vital Signs Vital signs: Period Temp Pulse Resp BP Sys/Cotto Pulse Ox Last 24 Hr 97.8 F-99.0 F 87-97 16-20 128-159/58-71 97-98 - Lab 10/10/16 04:04 10/10/16 04:04 Most recent lab results Calcium 8.8 MG/DL (8.5-10.1) 10/10/16 04:04 Magnesium 1.6 MG/DL (1.8-2.4) L 10/08/16 Unknown Assessment and Plan (1) Chronic renal failure Status: Acute Current Visit: Yes (2) Small bowel obstruction Status: Acute Current Visit: Yes
--- NOTE | 2016-10-10 08:38 | XRay Report ---
Exam: XR abdomen 2V Date: 10/10/2016 4:00 AM Comparison: 10/08/2016 Indication: Small bowel obstruction Technique:[Supine and erect abdomen Findings: Nasogastric tube remains in the stomach. Persistent gaseous distention of the small bowel with the largest loop measuring 53 mm compared to 52 mm on the previous exam. No significant gas in the colon. No free air. Air-fluid levels are noted on the erect film. Elongation of the right lobe of the liver. Postoperative findings are noted including prior cholecystectomy. Prior right total hip replacement. Degenerative changes are noted.] Impression: Persistent findings of small bowel obstruction with largest loop measuring 53 mm compared to 52 mm on the previous exam. Nasogastric tube remains in the stomach. Post operative findings are redemonstrated. Elongation of the right lobe of the liver. PROCEDURE INTERPRETED AT [facility] DEPARTMENT OF RADIOLOGY Final Report Signed by: Dr. Sanam Singh
--- NOTE | 2016-10-10 11:04 | Urology Consultation ---
Assessment and Plan - Time spent with patient Time spent with patient: Greater than 30 minutes (1) Bilateral hydronephrosis Status: Acute Current Visit: Yes (2) Urinary retention due to benign prostatic hyperplasia Status: Acute Assessment and plan: We will place a Hernandez and I think this will help. We will follow his creatinine. We will wait and see what happens with his bowel obstruction. Initially I favor doubling his Flomax to see if this helps but the only time will tell. Current Visit: Yes History of Present Illness - Data of Consult Patient: known to practice within the last 3 years Consult date: 10/10/16 Requesting Physician: Shaun Landry - Consult Narrative Reason for consult: Hydronephrosis History of present illness: Mr. Weir is a 76 year old male who is known to me. I saw him last March placed him on Flomax for lower urinary tract symptoms. He is now admitted with small bowel obstruction or trying to treat with an NG tube it may require surgery. He was found to have an elevated creatinine and bilateral hydronephrosis. Residual urines [address] a Hernandez and that should help. When he is able take p.o. we can double his Flomax and see if if that will correct things. We will check a PSA. He may require TUR in the future. CC: Shaun Landry MD - Home Medications and Allergies Home Medications: Home Medications Medication Instructions Recorded Confirmed Type Allopurinol [Zyloprim] 100 mg PO QAM 10/06/16 10/08/16 History Aspirin EC Tab 81 mg PO QAM 10/06/16 10/08/16 History Carvedilol 25 mg PO BID 10/06/16 10/08/16 History Colchicine [Colcrys] 0.6 mg PO Q1H PRN 10/06/16 10/08/16 History Esomeprazole Magnesium 40 mg PO QAM 10/06/16 10/08/16 History [Esomeprazole] Furosemide Tab [Lasix Tab] 40 mg PO BID DIURETIC 10/06/16 10/08/16 History Tamsulosin [Flomax] 0.4 mg PO BID 10/06/16 10/08/16 History glyBURIDE [Glyburide] 2.5 mg PO QAM 10/06/16 10/08/16 History hydrALAZINE TAB [Apresoline Tab] 50 mg PO BID 10/06/16 10/08/16 History Allergies/Adverse Reactions: Allergies Allergy/AdvReac Type Severity Reaction Status Date / Time lisinopril Allergy Unknown/Unable Verified 10/08/16 10:25 to obtain Penicillins Allergy Unknown/Unable Verified 10/08/16 10:25 to obtain valsartan [From Diovan] Allergy Unknown/Unable Verified 10/08/16 10:25 to obtain 12 point system: reviewed and no additional remarkable complaints except as stated - Genitourinary Genitourinary: Present: difficulty urinating, urinary frequency (Nocturia 2-3 times) Exam - Constitutional Vitals: Period Temp Pulse Resp BP Sys/Cotto Pulse Ox Last 24 Hr 97.8 F-99.0 F 87-97 16-20 128-159/58-71 97-98 - Genitourinary Genitourinary: scrotum without lesions, cysts, edema or rash, penis with no lesions or discharge, diffusely enlarged prostate without tenderness Results - Labs CBC & BMP: 10/10/16 04:04 10/10/16 04:04
[2016-10-10] MEDS: glyBURIDE 2.5 MG TABLET PO SCH (11:07)
[2016-10-10] MEDS: CARVEDILOL 25 MG TABLET PO SCH ×2 (11:07→21:04)
[2016-10-10] MEDS: FUROSEMIDE 40 MG TABLET PO SCH ×2 (11:07→15:39)
[2016-10-10] MEDS: ALLOPURINOL 100 MG TABLET PO SCH (11:07)
[2016-10-10] MEDS: ASPIRIN EC 81 MG TABLET PO SCH (11:07)
[2016-10-10] MEDS: CYCLOBENZAPRINE 10 MG TABLET PO SCH ×4 (11:08→21:07)
[2016-10-10] MEDS: PANTOPRAZOLE 40 MG VIAL IV SCH (11:12)
[2016-10-10] MEDS: ENOXAPARIN 30 MG/0.3 ML SYRINGE SUBCUT SCH (11:17)
[2016-10-10] MEDS: TAMSULOSIN 0.4 MG CAPSULE PO SCH ×2 (11:18→21:03)
[2016-10-10] MEDS ORDERED: PHENOL 1.4% THROAT SPRAY 177 ML BOTTLE PO PRN (11:32)
--- NOTE | 2016-10-10 11:35 | General Surgery Progress Note ---
Assessment and Plan (1) Small bowel obstruction Status: Acute Assessment and plan: Impression: Partial small bowel obstruction, ventral hernias Plan: Pain improved but no other improvement in his obstruction. Minimal output from the colostomy. Labs are okay. His abdominal x-ray showed no significant improvement in the dilated loops. I do not see any contrast on the plain film. We'll continue conservative management for now. Discussed the possibility of surgical intervention should he not began to improve. Will reassess tomorrow. He is getting a Hernandez catheter placed for urinary retention. Current Visit: Yes Subjective Patient reports: Present: no new complaints Narrative: Patient states he feels a little bit better. His pain is improved. He still somewhat distended. Exam - Constitutional Vitals: Period Temp Pulse Resp BP Sys/Cotto Pulse Ox Last 24 Hr 97.8 F-99.0 F 87-97 16-20 128-159/58-71 97-98 General appearance: no acute distress - Head Head exam: Present: normocephalic - ENT Mouth exam: Present: normal external inspection - Neck Neck exam: Present: normal inspection - Respiratory Respiratory exam: Present: clear to auscultation bilaterally - Cardiovascular Cardiovascular exam: Present: RRR - GI/Abdominal GI/Abdominal exam: Present: soft (mild tenderness to palpation in the right abdomen lateral to the umbilicus, no peritoneal signs, no significant bowel sounds appreciated, NG tube with approximately 1.8 L in the last 24 hours, obese with moderate distention.) Results - Labs CBC & BMP: 10/10/16 04:04 10/10/16 04:04 Lab Results: I have reviewed the past 24 hour labs
--- NOTE | 2016-10-10 12:28 | Hospitalist Progress Note ---
Hospitalist: Subjective Interval history: Patient states that he was feeling better this morning with abdominal pain until he started receiving his morning meds. He reports abdominal bloating, decreased output out of his colostomy, and increased cramping abdominal pain. No fever. No chest pain or shortness of breath. Nursing states that the surgeon may be considering surgery in the morning. Exam - Constitutional Vitals: Period Temp Pulse Resp BP Sys/Cotto Pulse Ox Last 24 Hr 97.8 F-99.0 F 87-97 16-20 128-159/58-71 97-98 General appearance: over weight - Head Head exam: Present: normal inspection - Eye Eye exam: Absent: conjunctival injection, scleral icterus - Respiratory Respiratory exam: Present: clear to auscultation bilaterally. Absent: accessory muscle use - Cardiovascular Cardiovascular exam: Present: regular rate and rhythm. Absent: diastolic murmur , systolic murmur - GI/Abdominal GI/Abdominal exam: Present: distended, firm, hypoactive bowel sounds, tenderness , other (No voluntary guarding). Absent: mass, organomegaly, rebound - Extremities Exam Extremities exam: Present: normal inspection, normal capillary refill. Absent: calf tenderness, edema - Neurological Exam Neurological exam: Present: alert, oriented X3 - Skin Skin exam: Present: normal color, warm, dry Results - Labs CBC & BMP: 10/10/16 04:04 10/10/16 04:04 Labs: PSA elevated - Impressions * Acute SBO- NGT, IVF, IV PPI .attempting conservative mgt per surgery/ Primary service-possibly may require surgery. I am told surgery may have plans for surgery in the a.m. pending patient's progress *Acute renal failure on CKD stage 3 due to obstructive uropathy-Hernandez placement. Urology following. * DM2-Accuchecks controlled. Cont I.S.S. and accuchecks ac,hs * Essential hypertension-Cont IV antihypertensives as needed * Chronic Gout Following along with you. D/W family and pt. Surgery. Notes reviewed. - Diagnostic Findings Procedure: KUB x-ray: report reviewed by me (KUB- SBO persists with dilated bowel loops)
--- NOTE | 2016-10-10 16:02 | Physician Query Form ---
CLICK EDIT DOCUMENT TO SELECT QUERY ANSWER --> OK --> SIGN Cherri Ibrahim RN Clinical [employer] W) [phone] (f) [phone] [email or web address] PROVIDERS: Make your selection(s) from the choices in EACH section by typing an "x" and enter comments in the comment section. Please use your independent medical judgment in providing your response. This request does not imply that any particular answer is desired or expected. CLINICAL INDICATORS: (Providers should not edit this section) Based on lab results of creatinine on admission of 4.90 and increased to 5.70 with a GFR of 14. Pt. has documented CKD stage 4. Pt. treated with IV fluids. Clarify which of the following most accurately represents the patient's renal status: ( ) Acute kidney injury (non-traumatic) ( ) Acute renal failure (x ) Acute renal failure with underlying Chronic Kidney Disease (CKD) - please provide stage below ( ) CKD - please provide stage below ( ) Other, please specify: ( ) Clinically unable to determine Chronic Kidney Disease Stages Source: National Kidney Disease Foundation ( ) Stage I (eGFR > or = 90) ( ) Stage II (eGFR 60 - 89) ( ) Stage III (eGFR 30 - 59) ( x) Stage IV (eGFR 15 - 29) ( ) Stage V (eGFR < 15 or dialysis) COMMENTS: Use of terms such as suspected, likely, or probable (associated with a specific diagnosis that is being evaluated, monitored, or treated as if it exists) are acceptable and can be restated in the discharge summary if not ruled out. MTDD
[2016-10-10] MEDS: DEXTROSE 5% NACL 0.45% 1,000 ML IV SCH (17:32)
[2016-10-11] MEDS: INSULIN REGULAR 100 UNIT/ML SUBCUT SCH ×4 (00:44→20:34)
[2016-10-11] MEDS: DEXTROSE 5% NACL 0.45% 1,000 ML IV SCH ×4 (01:30→20:35)
[2016-10-11 05:42] LABS: Basophils % 0.2 % (0.0-0.8); Eosinophils # 0.1 10*3/uL (0.0-0.87); Eosinophils % 1.7 % (0.00-10.9); Hematocrit 29.7 VOL% (42.0-52.0); Immature Granulocytes % 0.5 %; Immature Granulocytes Absolute 0.03 #; Lymphocytes # 0.6 10*3/uL (1.4-4.0); Mean Corpuscular HGB Conc 26.9 GM/DL (32-36); Mean Corpuscular Hemoglobin 21 PG (27-34); Mean Corpuscular Volume 76.7 FL (87-102); Mean Platelet Volume 9.1 FL (9.6-12.0); Monocytes # 0.8 10*3/uL (0.11-0.8); Monocytes % 13.6 % (1.7-12.7); Neutrophils # 4.2 10*3/uL (1.4-7.4); Platelet Count 197 T/CUMM (130-400); Red Blood Count 3.87 MC/CUMM (3.8-5.5); Red Cell Distribution Width 17.8 % (9.3-17.3); White Blood Count 5.7 T/CUMM (4-12)
[2016-10-11 06:00] LABS: Hemoglobin 8.2 GM/DL (14.0-18.0)
[2016-10-11 06:06] LABS: Hypochromasia 1+; Ovalocytes Slight; Platelet Estimate Normal
[2016-10-11 06:19] LABS: Macrocytosis 1+
[2016-10-11 06:23] LABS: Calcium 8.9 MG/DL (8.5-10.1); Potassium 3.8 MMOL/L (3.5-5.1)
--- NOTE | 2016-10-11 07:17 | Urology Progress Note ---
Assessment and Plan (1) Bilateral hydronephrosis Status: Acute Current Visit: Yes (2) Urinary retention due to benign prostatic hyperplasia Status: Acute Assessment and plan: We will place a Hernandez and I think this will help. We will follow his creatinine. We will wait and see what happens with his bowel obstruction. Initially I favor doubling his Flomax to see if this helps but the only time will tell. Current Visit: Yes Urology - PN: Subj Interval history: Patient is tolerating his catheter. His creatinine is dropped to 5.1 we will continue the Hernandez. May require laparotomy for small bowel obstruction. Exam - Constitutional Vitals: Period Temp Pulse Resp BP Sys/Cotto Pulse Ox Last 24 Hr 98.8 F-99.1 F 73-90 18-20 122-147/66-75 97-100 Results - Labs CBC & BMP: 10/11/16 05:31 10/11/16 05:31
[2016-10-11] MEDS: FUROSEMIDE 40 MG TABLET PO SCH ×2 (10:05→16:54)
[2016-10-11] MEDS: ALLOPURINOL 100 MG TABLET PO SCH (10:05)
[2016-10-11] MEDS: CARVEDILOL 25 MG TABLET PO SCH ×2 (10:06→20:42)
[2016-10-11] MEDS: ASPIRIN EC 81 MG TABLET PO SCH (10:06)
[2016-10-11] MEDS: ENOXAPARIN 30 MG/0.3 ML SYRINGE SUBCUT SCH (10:11)
[2016-10-11] MEDS: TAMSULOSIN 0.4 MG CAPSULE PO SCH ×2 (10:12→20:42)
[2016-10-11] MEDS: glyBURIDE 2.5 MG TABLET PO SCH (10:13)
[2016-10-11] MEDS: CYCLOBENZAPRINE 10 MG TABLET PO SCH ×2 (10:13→16:49)
[2016-10-11] MEDS: HYDROmorphone 2 MG/1 ML VIAL IV PRN ×2 (10:29→22:16)
--- NOTE | 2016-10-11 10:34 | Nephrology Progress Note ---
Nephrology - PN: Subj Interval history: Mr. Weir is seen in follow-up of his chronic renal failure with acute worsening. His creatinine is much improved today down to 5.1 from 5.7. He continues to require an NG tube because of small bowel obstruction. His urine output with a Hernandez catheter is good and the urine is blood-tinged as expected. Hopefully his creatinine will continue to improve but we do not know the extent to which his obstructive component of his renal failure was contributing to his azotemia. We will see him October 14 Exam (PN)-Nephrology - Vital Signs Vital signs: Period Temp Pulse Resp BP Sys/Cotto Pulse Ox Last 24 Hr 98.8 F-99.1 F 73-90 18-20 119-147/66-75 97-100 - Lab 10/11/16 05:31 10/11/16 05:31 Most recent lab results Calcium 8.9 MG/DL (8.5-10.1) 10/11/16 05:31 Magnesium 1.6 MG/DL (1.8-2.4) L 10/08/16 Unknown Assessment and Plan (1) Chronic renal failure Status: Acute Current Visit: Yes (2) Small bowel obstruction Status: Acute Current Visit: Yes
[2016-10-11] MEDS: PANTOPRAZOLE 40 MG VIAL IV SCH (10:36)
--- NOTE | 2016-10-11 10:47 | XRay Report ---
Exam: XR abdomen 2V Date: 10/11/2016 4:00 AM Comparison: 10/10/2016 Indication: SBO Technique:[Supine and erect abdomen] Findings: Nasogastric tube remains in the stomach. Prior cholecystectomy with additional postoperative findings in the abdomen and pelvis. Prior right total hip replacement. Persistent gaseous distention of the small bowel with the largest loop measuring 57 mm compared to 52 mm on the previous exam. It appears that some of the oral contrast reaches the cecum. No free air is identified. Degenerative changes are noted. Persistent enlargement of the liver. Impression: Nasogastric tube remains in the stomach. Minimally progressive gaseous distention of the small bowel which can be seen with residual SBO. However minimal oral contrast probably reaches the cecum. Continued follow-up x-ray may be helpful for further evaluation. The liver remains enlarged with stable postoperative findings. PROCEDURE INTERPRETED AT [facility] DEPARTMENT OF RADIOLOGY Final Report Signed by: Dr. Sanam Singh
--- NOTE | 2016-10-11 10:48 | General Surgery Progress Note ---
Assessment and Plan (1) Small bowel obstruction Status: Acute Assessment and plan: Impression: Partial small bowel obstruction, ventral hernias Plan: Abdomen is pretty benign on exam. Reports functioning of his stoma but it has not been recorded as such. There is a little more air and liquid stool in the bag been previously seen. NG tube output remains high. Abdominal x-ray report not available but the films were reviewed and he has what appears to be some gas in the colon with improvement in the small bowel loops. Hopefully he is beginning to open up. We will continue NG tube for now. Hopefully he will improve with conservative management. If not we may be looking at operative exploration earlier next week unless his condition declines. Current Visit: Yes Subjective Patient reports: Present: no new complaints Narrative: Patient states his pain has resolved. He states he had to empty his colostomy back 3 times but this has not been recorded by the nursing staff. He says he is feeling much better. His NG tube output remains fairly high. Exam - Constitutional Vitals: Period Temp Pulse Resp BP Sys/Cotto Pulse Ox Last 24 Hr 98.8 F-99.1 F 73-90 18-20 119-147/66-75 97-100 General appearance: no acute distress - Head Head exam: Present: normocephalic - ENT Mouth exam: Present: normal external inspection - Neck Neck exam: Present: normal inspection, trachea midline - Respiratory Respiratory exam: Present: clear to auscultation bilaterally - Cardiovascular Cardiovascular exam: Present: RRR - GI/Abdominal GI/Abdominal exam: Present: soft (no significant tenderness elicited. Some bowel sounds present. Colostomy bag with some air and liquid stool present.) - Back Exam Back exam: Present: normal inspection - Neurological Exam Neurological exam: Present: alert, oriented X3 Speech: Present: normal - Skin Skin exam: Present: normal color Results - Labs CBC & BMP: 10/11/16 05:31 10/11/16 05:31 Lab Results: I have reviewed the past 24 hour labs
--- NOTE | 2016-10-11 17:15 | Hospitalist Progress Note ---
Hospitalist: Subjective Interval history: Patient reports that he had some output from his colostomy overnight but has had minimal output today. He reports decreased abdominal pain diffusely and denies any chest pain, shortness of breath, or palpitations. He denies any fever. He reports sore throat due to NG tube placement. Exam - Constitutional Vitals: Period Temp Pulse Resp BP Sys/Cotto Pulse Ox Last 24 Hr 98.8 F-99.1 F 73-92 18-20 119-147/66-75 94-100 General appearance: over weight - Head Head exam: Present: normal inspection, normocephalic - Eye Eye exam: Present: EOMI. Absent: conjunctival injection, scleral icterus - ENT ENT exam: Present: other (NG tube in place) - Neck Neck exam: Present: normal inspection - Respiratory Respiratory exam: Present: clear to auscultation bilaterally. Absent: accessory muscle use - Cardiovascular Cardiovascular exam: Present: regular rate and rhythm. Absent: systolic murmur - GI/Abdominal GI/Abdominal exam: Present: distended, hypoactive bowel sounds, tenderness ( Lower abdominal tenderness to palpation without rebound or voluntary guarding), soft - Neurological Exam Neurological exam: Present: alert, oriented X3 - Skin Skin exam: Present: normal color, warm, dry Results - Labs CBC & BMP: 10/11/16 05:31 10/11/16 05:31 - Impressions * Acute SBO- NGT, IVF, IV PPI, serial xrays. KUB seems improved. Attempting conservative mgt per surgery/ Primary service-possibly may require surgery. *Acute renal failure on CKD stage 3 due to obstructive uropathy-Hernandez placement. Urology following. * DM2-Accuchecks controlled. Cont I.S.S. and accuchecks ac,hs * Essential hypertension-Cont IV antihypertensives as needed * Chronic Gout Following along with you. D/W pt. surgery notes reviewed.
[2016-10-12] MEDS: DEXTROSE 5% NACL 0.45% 1,000 ML IV SCH ×3 (01:26→17:10)
[2016-10-12 04:22] LABS: Calcium 8.5 MG/DL (8.5-10.1); Osmolality,Calculated 307.6 MOS/KG (273-304); Potassium 3.9 MMOL/L (3.5-5.1)
[2016-10-12] MEDS: INSULIN REGULAR 100 UNIT/ML SUBCUT SCH ×4 (05:33→17:23)
[2016-10-12] MEDS: ENOXAPARIN 30 MG/0.3 ML SYRINGE SUBCUT SCH (10:25)
[2016-10-12] MEDS: FUROSEMIDE 40 MG TABLET PO SCH ×2 (10:25→16:52)
[2016-10-12] MEDS: glyBURIDE 2.5 MG TABLET PO SCH (10:25)
[2016-10-12] MEDS: CARVEDILOL 25 MG TABLET PO SCH ×2 (10:25→20:55)
[2016-10-12] MEDS: ASPIRIN EC 81 MG TABLET PO SCH (10:25)
[2016-10-12] MEDS: TAMSULOSIN 0.4 MG CAPSULE PO SCH ×2 (10:26→20:55)
[2016-10-12] MEDS: PANTOPRAZOLE 40 MG VIAL IV SCH (10:27)
[2016-10-12] MEDS: ALLOPURINOL 100 MG TABLET PO SCH (10:27)
--- NOTE | 2016-10-12 10:50 | Event Note ---
10/12/2016 Patient is afebrile with his NG tube in place with moderate drainage. No bowel movement at this time no function in his colostomy even though he describes having some function last night. Abdomen is soft with some hypoactive bowel sounds but he still has some crampy discomfort it he relates. No significant change so will just continue what we are doing at this time with fluid support and NG suction.
--- NOTE | 2016-10-12 11:57 | Urology Progress Note ---
Assessment and Plan (1) Bilateral hydronephrosis Status: Acute Current Visit: Yes (2) Urinary retention due to benign prostatic hyperplasia Status: Acute Assessment and plan: We will place a Hernandez and I think this will help. We will follow his creatinine. We will wait and see what happens with his bowel obstruction. Initially I favor doubling his Flomax to see if this helps but the only time will tell. Current Visit: Yes Urology - PN: Subj Interval history: General surgery still trying conservative treatment for his SBO. His creatinine is 4.7. We will continue maintain catheter. I will check back on Friday. Exam - Constitutional Vitals: Period Temp Pulse Resp BP Sys/Cotto Pulse Ox Last 24 Hr 98.2 F-99.1 F 69-93 16-84 110-137/61-69 94-97 Results - Labs CBC & BMP: 10/11/16 05:31 10/12/16 02:29
[2016-10-12] MEDS: HYDROmorphone 2 MG/1 ML VIAL IV PRN ×2 (14:35→22:48)
[2016-10-12] MEDS: ONDANSETRON 4 MG/2 ML VIAL IV PRN (14:36)
--- NOTE | 2016-10-12 15:31 | Hospitalist Progress Note ---
Hospitalist: Subjective Interval history: Pt reports a large amount of outpt via colostomy overnight. He states he changed his colostomy 3 times last night. No fever. Abd pain was better before he started a few ice chips. Exam - Constitutional Vitals: Period Temp Pulse Resp BP Sys/Cotto Pulse Ox Last 24 Hr 97.7 F-99.1 F 69-97 16-84 110-137/61-69 94-97 Exam: A and O x 3. NAD, NGT in place, slightly dry mucus membranes RRR no M, CTAB nonlabored Soft, mildly diffusely TTP without rebound or guarding seems worse along the lower abdomen Warm no c/c/e Results - Labs CBC & BMP: 10/11/16 05:31 10/12/16 02:29 - Impressions - Impressions * Acute SBO- NGT, IVF, IV PPI, serial xrays. 3/3 KUB seems improved. Attempting conservative mgt per surgery/ Primary service-possibly may require surgery. *Acute renal failure on CKD stage 3 due to obstructive uropathy likely due to BPH, pain medication and immobility-improving s/p Hernandez placement. Urology following. * DM2-Accuchecks controlled. Cont I.S.S. and accuchecks ac,hs * Essential hypertension-Cont IV antihypertensives as needed * Chronic Gout Following along with you. D/W pt. surgery/ urology notes reviewed.
[2016-10-13] MEDS: DEXTROSE 5% NACL 0.45% 1,000 ML IV SCH ×3 (01:10→18:01)
[2016-10-13 03:32] LABS: Calcium 8.6 MG/DL (8.5-10.1); Potassium 3.5 MMOL/L (3.5-5.1)
[2016-10-13] MEDS: HYDROmorphone 2 MG/1 ML VIAL IV PRN ×3 (03:52→21:29)
[2016-10-13] MEDS: INSULIN REGULAR 100 UNIT/ML SUBCUT SCH ×4 (05:43→18:49)
[2016-10-13] MEDS: ENOXAPARIN 30 MG/0.3 ML SYRINGE SUBCUT SCH (08:45)
[2016-10-13] MEDS: FUROSEMIDE 40 MG TABLET PO SCH ×2 (08:45→17:35)
[2016-10-13] MEDS: TAMSULOSIN 0.4 MG CAPSULE PO SCH ×2 (08:46→21:23)
[2016-10-13] MEDS: ASPIRIN EC 81 MG TABLET PO SCH (08:46)
[2016-10-13] MEDS: PANTOPRAZOLE 40 MG VIAL IV SCH (08:46)
[2016-10-13] MEDS: CARVEDILOL 25 MG TABLET PO SCH ×2 (08:46→21:23)
[2016-10-13] MEDS: ALLOPURINOL 100 MG TABLET PO SCH (08:46)
[2016-10-13] MEDS: glyBURIDE 2.5 MG TABLET PO SCH (08:46)
--- NOTE | 2016-10-13 10:04 | Event Note ---
10/13/2016 Patient in general is doing fairly well without any unusual problems. Abdomen remains soft hypoactive bowel sounds and some good drainage into the colostomy. Minimal NG tube drainage at this point. Think we will try him on some liquids keeping his NG tube on gravity at this point especially see what he is going to do. Plans are abdominal films were in the morning.
--- NOTE | 2016-10-13 10:32 | Hospitalist Progress Note ---
Hospitalist: Subjective Interval history: No fever. Abdominal pain seems improved overall. He reports that he emptied his colostomy overnight and has one fourth of the bag filled so far today. No nausea or vomiting. No chest pain or shortness of breath. Patient states he wants to go walking today. Exam - Constitutional Vitals: Period Temp Pulse Resp BP Sys/Cotto Pulse Ox Last 24 Hr 97.7 F-99.9 F 92-99 18-20 124-137/44-71 95-95 Exam: A and O x 3. NAD, NGT in place, slightly dry mucus membranes RRR no M, CTAB nonlabored Soft, nontender to palpation. No rebound or guarding. Hypoactive bowel sounds but seems to be more active along the left side. Hernandez catheter in place draining clear light yellow urine. Warm no c/c/e Results - Labs CBC & BMP: 10/11/16 05:31 10/13/16 02:13 - Impressions - Impressions * Acute partial SBO- NGT, IVF, IV PPI, serial xrays. 3/3 KUB seems improved. Repeat x-ray ordered for a.m. Attempting conservative mgt per surgery/ Primary service-possibly may require surgery. *Acute renal failure on CKD stage 3 due to obstructive uropathy likely due to BPH, pain medication and immobility-creatinine improving s/p Hernandez placement. Urology following. Serial labs * DM2-Accuchecks controlled. Cont I.S.S. and accuchecks ac,hs * Essential hypertension-Cont IV antihypertensives as needed * Chronic Gout Following along with you. D/W pt. surgery note reviewed. I will be away several days. 1 of my associates will follow in my absence.
[2016-10-13] MEDS: ONDANSETRON 4 MG/2 ML VIAL IV PRN (21:30)
[2016-10-13] MEDS ORDERED: PROMETHAZINE 25 MG/1 ML VIAL IM ONE (23:46)
[2016-10-14] MEDS: INSULIN REGULAR 100 UNIT/ML SUBCUT SCH ×4 (00:23→20:06)
[2016-10-14] MEDS: DEXTROSE 5% NACL 0.45% 1,000 ML IV SCH ×2 (00:30→09:20)
[2016-10-14 05:49] LABS: Basophils % 0.1 % (0.0-0.8); Eosinophils # 0.1 10*3/uL (0.0-0.87); Eosinophils % 1.3 % (0.00-10.9); Hematocrit 27.6 VOL% (42.0-52.0); Hemoglobin 7.7 GM/DL (14.0-18.0); Immature Granulocytes % 0.4 %; Immature Granulocytes Absolute 0.03 #; Lymphocytes # 0.6 10*3/uL (1.4-4.0); Lymphocytes % 8.4 % (21.2-54.2); Mean Corpuscular HGB Conc 27.9 GM/DL (32-36); Mean Corpuscular Hemoglobin 21 PG (27-34); Mean Corpuscular Volume 74.4 FL (87-102); Monocytes # 0.9 10*3/uL (0.11-0.8); Monocytes % 12.9 % (1.7-12.7); Neutrophils # 5.4 10*3/uL (1.4-7.4); Neutrophils % 76.9 % (38.7-73.9); Platelet Count 233 T/CUMM (130-400); Red Blood Count 3.71 MC/CUMM (3.8-5.5); Red Cell Distribution Width 18.4 % (9.3-17.3)
[2016-10-14 05:55] LABS: Elliptocytes Few; Hypochromasia 1+; Macrocytosis Slight; Platelet Estimate Adequate
[2016-10-14 05:57] LABS: Alanine Aminotransferase < 6 U/L (16-61); Albumin 2.3 G/DL (3.4-5.0); Alkaline Phosphatase 140 U/L (45-117); Aspartate Amino Transferase 6 U/L (0-37); Blood Urea Nitrogen 49 MG/DL (7-18); Calcium 8.4 MG/DL (8.5-10.1); Glucose 137 MG/DL (74-106); Osmolality,Calculated 300.8 MOS/KG (273-304); Sodium 144 MMOL/L (136-145); Total Protein 5.5 G/DL (6.4-8.3)
[2016-10-14] MEDS: ALLOPURINOL 100 MG TABLET PO SCH (09:19)
[2016-10-14] MEDS: ENOXAPARIN 30 MG/0.3 ML SYRINGE SUBCUT SCH (09:19)
[2016-10-14] MEDS: FUROSEMIDE 40 MG TABLET PO SCH ×2 (09:19→18:16)
[2016-10-14] MEDS: PANTOPRAZOLE 40 MG VIAL IV SCH (09:19)
[2016-10-14] MEDS: TAMSULOSIN 0.4 MG CAPSULE PO SCH ×2 (09:19→21:22)
[2016-10-14] MEDS: glyBURIDE 2.5 MG TABLET PO SCH (09:19)
[2016-10-14] MEDS: ASPIRIN EC 81 MG TABLET PO SCH (09:19)
[2016-10-14] MEDS: CARVEDILOL 25 MG TABLET PO SCH ×2 (09:19→21:22)
[2016-10-14] MEDS: COLCHICINE 0.6 MG TABLET PO PRN ×2 (10:34→18:18)
--- NOTE | 2016-10-14 12:10 | General Surgery Progress Note ---
Assessment and Plan (1) Small bowel obstruction Status: Acute Assessment and plan: Impression: Partial small bowel obstruction, ventral hernias Plan: Remove the NG tube and start clear liquids. He is currently asymptomatic and his stoma per his report is been functioning well. He has bowel sounds. Hopefully he continues to improve with slow advancement of his diet. Current Visit: Yes Subjective Patient reports: Present: no new complaints, feels better Narrative: Patient states he has had to empty has colostomy bag 5 times in the last 24 hours with stool and air. A says his colostomy is putting out quite a bit. He has no abdominal pain or tenderness today. He's not had any nausea or vomiting and his NG tube has had 200 mL in the last 24 hours. Exam - Constitutional Vitals: Period Temp Pulse Resp BP Sys/Cotto Pulse Ox Last 24 Hr 98.5 F-99.8 F 87-96 16-20 111-141/58-71 95-99 General appearance: no acute distress - Head Head exam: Present: normocephalic - ENT Mouth exam: Present: normal external inspection - Neck Neck exam: Present: normal inspection, trachea midline - Respiratory Respiratory exam: Present: clear to auscultation bilaterally - Cardiovascular Cardiovascular exam: Present: RRR - GI/Abdominal GI/Abdominal exam: Present: soft (nontender and nondistended. Left-sided hernia easily reducible. Stoma with liquid stool and air in the bag.) - Extremities Exam Extremities exam: Present: normal inspection - Back Exam Back exam: Present: normal inspection - Neurological Exam Neurological exam: Present: alert, oriented X3 Speech: Present: normal - Skin Skin exam: Present: normal color Results - Labs CBC & BMP: 10/14/16 04:37 10/14/16 04:37 Lab Results: I have reviewed the past 24 hour labs
--- NOTE | 2016-10-14 12:35 | Hospitalist Progress Note ---
Assessment and Plan - Time spent with patient Time spent with patient: Less than 30 minutes (1) Small bowel obstruction Status: Acute Assessment and plan: 76-year-old -[place] male with history of colorectal cancer, hypertension, diabetes, renal failure admitted by Dr. Su with small bowel obstruction. Patient is undergone multiple abdominal surgeries with the last one being in 2011. NG tube has already been placed with greater than 500 cc of output. He does have output in his ostomy bag. His abdomen is now soft and nontender. Will admit the patient for observation and try to resolve the small bowel obstruction conservatively. Patient's creatinine is 4.9 and he is a patient of Dr. Vazquez so will consult him to follow. We will also consult hospitalist for medical management of this patient with diabetes and hypertension on n.p.o. status. Dr. Su has seen and examined patient. 10/14/[address] us has dc ngt and started clear diet that pt is tolerating. advance diet per dr su Current Visit: Yes (2) Chronic renal failure Status: Acute Assessment and plan: renal failure improved. nephrology is following. Current Visit: Yes (3) Diabetes Status: Acute Assessment and plan: blood sugars under control. cont SSI and po meds. Current Visit: Yes (4) Hypertension Status: Acute Assessment and plan: BP under control on po meds and prn iv. Current Visit: Yes (5) Urinary retention due to benign prostatic hyperplasia Status: Acute Assessment and plan: uop ok w [place]. being followed by dr varghese from urology. Current Visit: Yes Hospitalist: Subjective Interval history: pt feels much better. ngt has been dc and he has tolerated his clears for lunch. no complaints of abdominal pain. pt has had a lot of output from his ostomy in the last 24h. only complaints is of an acute gouty attack in elbows and bilateral feet. Exam - Constitutional Vitals: Period Temp Pulse Resp BP Sys/Cotto Pulse Ox Last 24 Hr 98.5 F-99.8 F 87-96 16-20 111-141/58-71 95-99 74AAM, NAD, alert and oriented chest clear cv rrr abd obese, soft, nt, runny stool in ostomy bag ext mild pedal edema Results - Labs CBC & BMP: 10/14/16 04:37 10/14/16 04:37 Lab Results: I have reviewed the past 24 hour labs
--- NOTE | 2016-10-14 12:54 | XRay Report ---
History: Small bowel obstruction Date: 10/14/2016 Study: Flat and erect abdomen Comparison exam: October 11, 2016 The nasogastric tube is positioned with its tip overlying the proximal stomach level. There is continued disproportionate small bowel distention compatible with partial small bowel obstruction, slightly worsened compared to the previous study. There is no evidence of pneumoperitoneum. Osseous structures are unchanged. Previous right hip replacement. Impression: Continued partial small bowel obstruction, slightly increased compared to the previous study PROCEDURE INTERPRETED AT [facility] DEPARTMENT OF RADIOLOGY Final Report Signed by: Dr. Emily Collier
--- NOTE | 2016-10-14 14:11 | Nephrology Progress Note ---
Nephrology - PN: Subj Interval history: Mr. Weir is seen in follow-up of his chronic renal failure. His creatinine is lower following rehydration and Hernandez drainage. Hopefully he will be better able to empty his bladder once the catheter is removed with the Flomax that has been started. His chest is clear and he has no significant edema. He does have bowel sounds and has had bowel movements. Plan is to continue to follow his lab but I doubt that his creatinine will drop much below its present level. Exam (PN)-Nephrology - Vital Signs Vital signs: Period Temp Pulse Resp BP Sys/Cotto Pulse Ox Last 24 Hr 98.5 F-99.8 F 87-96 16-20 111-141/58-71 95-99 - Lab 10/14/16 04:37 10/14/16 04:37 Most recent lab results Calcium 8.4 MG/DL (8.5-10.1) L 10/14/16 04:37 Magnesium 1.6 MG/DL (1.8-2.4) L 10/08/16 Unknown Assessment and Plan (1) Chronic renal failure Status: Acute Current Visit: Yes (2) Small bowel obstruction Status: Acute Current Visit: Yes
[2016-10-14] MEDS: HYDROmorphone 2 MG/1 ML VIAL IV PRN (14:39)
[2016-10-14] MEDS: predniSONE 10 MG TABLET PO SCH (18:16)
[2016-10-15] MEDS: INSULIN REGULAR 100 UNIT/ML SUBCUT SCH ×4 (00:41→17:43)
--- NOTE | 2016-10-15 08:44 | Urology Progress Note ---
Assessment and Plan (1) Bilateral hydronephrosis Status: Acute Current Visit: Yes (2) Urinary retention due to benign prostatic hyperplasia Status: Acute Assessment and plan: We will place a Hernandez and I think this will help. We will follow his creatinine. We will wait and see what happens with his bowel obstruction. Initially I favor doubling his Flomax to see if this helps but the only time will tell. Current Visit: Yes Urology - PN: Subj Interval history: A Hernandez catheter has been removed and he has voided when he was in the shower. At this point he seems to be doing well. I will check a bladder scan tomorrow morning to see how efficient system is. Exam - Constitutional Vitals: Period Temp Pulse Resp BP Sys/Cotto Pulse Ox Last 24 Hr 98.3 F-99.9 F 83-98 15-20 120-133/61-74 94-99 Results - Labs CBC & BMP: 10/14/16 04:37 10/14/16 04:37
[2016-10-15] MEDS: ENOXAPARIN 30 MG/0.3 ML SYRINGE SUBCUT SCH (08:52)
[2016-10-15] MEDS: PANTOPRAZOLE 40 MG VIAL IV SCH (08:52)
[2016-10-15] MEDS: glyBURIDE 2.5 MG TABLET PO SCH (08:53)
[2016-10-15] MEDS: CARVEDILOL 25 MG TABLET PO SCH ×2 (08:53→20:33)
[2016-10-15] MEDS: FUROSEMIDE 40 MG TABLET PO SCH ×2 (08:53→16:27)
[2016-10-15] MEDS: ASPIRIN EC 81 MG TABLET PO SCH (08:53)
[2016-10-15] MEDS: TAMSULOSIN 0.4 MG CAPSULE PO SCH ×2 (08:53→20:33)
[2016-10-15] MEDS: predniSONE 10 MG TABLET PO SCH (08:53)
[2016-10-15] MEDS: ALLOPURINOL 100 MG TABLET PO SCH (08:54)
[2016-10-15] MEDS ORDERED: predniSONE 5 MG TABLET PO SCH (10:37)
--- NOTE | 2016-10-15 10:37 | Hospitalist Progress Note ---
Assessment and Plan (1) Abdominal pain Status: Acute Assessment and plan: Abdominal pain is improved, glycemic control is good, blood pressure control is good. I'm going to reduce prednisone that he was taken for gout. Current Visit: Yes Qualifiers: Abdominal location: generalized Qualified Code(s): R10.84 - Generalized abdominal pain (2) Small bowel obstruction Status: Acute Current Visit: Yes (3) Diabetes Status: Acute Current Visit: Yes (4) Hypertension Status: Acute Current Visit: Yes Hospitalist: Subjective Interval history: [place] has no abdominal pain today. He has less distention. NG tube has been removed and the patient is tolerating liquid diet. The patient has less gouty arthritis symptoms today. Exam - Constitutional Vitals: Period Temp Pulse Resp BP Sys/Cotto Pulse Ox Last 24 Hr 98.3 F-99.9 F 83-98 15-20 120-133/61-74 94-99 Exam: Constitutional System: No distress. No tremulousness. Head: Normocephalic, atraumatic. Ears, Nose and Throat System: No evidence of Otitis or Mastoiditis. No epistaxis or discharge Eyes System: Pupils equal, round, and reactive. Extraocular muscles intact. Neck: Supple, without adenopathy, No jugular venous distention. No thyromegaly , neck mass, or prior surgery apparent. Respiratory System: Chest clear to auscultation. Cardiovascular System: Heart with regular rate and rhythm. No murmur. GI System: Abdomen soft, nontender. Hypo active bowel sounds present. Results - Labs CBC & BMP: 10/14/16 04:37 10/14/16 04:37 Lab Results: I have reviewed the past 24 hour labs
--- NOTE | 2016-10-15 11:56 | General Surgery Progress Note ---
Assessment and Plan (1) Small bowel obstruction Status: Acute Assessment and plan: Impression: Partial small bowel obstruction, ventral hernias Plan: Advance diet. Possibly home tomorrow. Current Visit: Yes Subjective Patient reports: Present: feels better Narrative: NG tube removed. He's been tolerating clear liquids. He has no abdominal complaints. He denies distention abdominal pain. He is having good stoma output. He denies any nausea or vomiting. He's been up in the shower and has been walking the halls. Exam - Constitutional Vitals: Period Temp Pulse Resp BP Sys/Cotto Pulse Ox Last 24 Hr 98.0 F-99.9 F 83-98 15-20 120-133/61-74 94-99 General appearance: no acute distress - Head Head exam: Present: normocephalic - ENT Mouth exam: Present: normal external inspection - Neck Neck exam: Present: normal inspection - Respiratory Respiratory exam: Present: clear to auscultation bilaterally - Cardiovascular Cardiovascular exam: Present: RRR - GI/Abdominal GI/Abdominal exam: Present: soft (nontender nondistended with stool in his colostomy bag) - Back Exam Back exam: Present: normal inspection - Neurological Exam Neurological exam: Present: alert, oriented X3 Speech: Present: normal - Skin Skin exam: Present: normal color Results - Labs CBC & BMP: 10/14/16 04:37 10/14/16 04:37
--- NOTE | 2016-10-15 13:36 | Nephrology Progress Note ---
Nephrology - PN: Subj Interval history: Mr. Weir is seen in follow-up of his chronic renal failure. He is continuing to improve his up in a chair today. Bowel sounds are good he is able to tolerate a liquid diet well. Chest is clear. Plan is for lab tomorrow and I expect it will be near his baseline of 4-1/2 creatinine. We are checking some iron levels to since he has become anemic. He is hoping to be discharged tomorrow if he tolerates solid food. No changes are made for now thank Exam (PN)-Nephrology - Vital Signs Vital signs: Period Temp Pulse Resp BP Sys/Cotto Pulse Ox Last 24 Hr 98.0 F-99.9 F 83-98 15-20 120-133/61-74 94-99 - Lab 10/14/16 04:37 10/14/16 04:37 Most recent lab results Calcium 8.4 MG/DL (8.5-10.1) L 10/14/16 04:37 Magnesium 1.6 MG/DL (1.8-2.4) L 10/08/16 Unknown Assessment and Plan (1) Chronic renal failure Status: Acute Current Visit: Yes (2) Small bowel obstruction Status: Acute Current Visit: Yes
[2016-10-16] MEDS: INSULIN REGULAR 100 UNIT/ML SUBCUT SCH ×3 (01:02→12:00)
[2016-10-16 03:52] LABS: Basophils % 0.1 % (0.0-0.8); Calcium 8.6 MG/DL (8.5-10.1); Eosinophils # 0.1 10*3/uL (0.0-0.87); Eosinophils % 1.7 % (0.00-10.9); Hematocrit 28.5 VOL% (42.0-52.0); Hemoglobin 7.8 GM/DL (14.0-18.0); Immature Granulocytes % 0.7 %; Immature Granulocytes Absolute 0.06 #; Lymphocytes # 0.8 10*3/uL (1.4-4.0); Lymphocytes % 9.3 % (21.2-54.2); Magnesium 1.5 MG/DL (1.8-2.4); Mean Corpuscular HGB Conc 27.4 GM/DL (32-36); Mean Corpuscular Hemoglobin 21 PG (27-34); Mean Corpuscular Volume 74.8 FL (87-102); Monocytes # 0.8 10*3/uL (0.11-0.8); Monocytes % 9.2 % (1.7-12.7); Neutrophils # 6.4 10*3/uL (1.4-7.4); Osmolality,Calculated 301.8 MOS/KG (273-304); Platelet Count 254 T/CUMM (130-400); Potassium 3.9 MMOL/L (3.5-5.1); Red Blood Count 3.81 MC/CUMM (3.8-5.5); Red Cell Distribution Width 18.6 % (9.3-17.3); White Blood Count 8.1 T/CUMM (4-12)
[2016-10-16 03:57] LABS: % Iron Saturation 19.5 % (18-50); Alanine Aminotransferase < 6 U/L (16-61); Albumin 2.3 G/DL (3.4-5.0); Alkaline Phosphatase 152 U/L (45-117); Aspartate Amino Transferase 7 U/L (0-37); Blood Urea Nitrogen 56 MG/DL (7-18); Calcium 8.4 MG/DL (8.5-10.1); Glucose 101 MG/DL (74-106); Iron 29 UG/DL (65-175); Iron Binding Capacity 149 UG/DL (250-450); Osmolality,Calculated 303.7 MOS/KG (273-304); Potassium 3.9 MMOL/L (3.5-5.1); Sodium 145 MMOL/L (136-145); Total Protein 5.6 G/DL (6.4-8.3)
[2016-10-16 04:15] LABS: Anisocytosis 1+; Hypochromasia 1+; Platelet Estimate Normal
[2016-10-16 07:06] LABS: Basophils % 0.1 % (0.0-0.8); Eosinophils # 0.1 10*3/uL (0.0-0.87); Eosinophils % 1.8 % (0.00-10.9); Hematocrit 27.2 VOL% (42.0-52.0); Hemoglobin 7.6 GM/DL (14.0-18.0); Immature Granulocytes % 0.9 %; Immature Granulocytes Absolute 0.07 #; Lymphocytes # 0.9 10*3/uL (1.4-4.0); Lymphocytes % 11.6 % (21.2-54.2); Mean Corpuscular HGB Conc 27.9 GM/DL (32-36); Mean Corpuscular Hemoglobin 21 PG (27-34); Mean Corpuscular Volume 73.3 FL (87-102); Monocytes # 0.8 10*3/uL (0.11-0.8); Monocytes % 9.8 % (1.7-12.7); Neutrophils # 5.8 10*3/uL (1.4-7.4); Neutrophils % 75.8 % (38.7-73.9); Platelet Count 245 T/CUMM (130-400); Red Blood Count 3.71 MC/CUMM (3.8-5.5); Red Cell Distribution Width 18.8 % (9.3-17.3); White Blood Count 7.7 T/CUMM (4-12)
[2016-10-16 07:10] LABS: Hypochromasia 1+; Microcytosis 1+; Ovalocytes Few; Tear Drop Cells Slight
[2016-10-16 07:11] LABS: Platelet Estimate Adequate
[2016-10-16] MEDS: PANTOPRAZOLE 40 MG VIAL IV SCH (08:10)
[2016-10-16] MEDS: COLCHICINE 0.6 MG TABLET PO PRN (08:10)
[2016-10-16] MEDS: glyBURIDE 2.5 MG TABLET PO SCH (08:10)
[2016-10-16] MEDS: ASPIRIN EC 81 MG TABLET PO SCH (08:10)
[2016-10-16] MEDS: ENOXAPARIN 30 MG/0.3 ML SYRINGE SUBCUT SCH (08:10)
[2016-10-16] MEDS: ALLOPURINOL 100 MG TABLET PO SCH (08:11)
[2016-10-16] MEDS: CARVEDILOL 25 MG TABLET PO SCH (08:11)
[2016-10-16] MEDS: FUROSEMIDE 40 MG TABLET PO SCH ×2 (08:11→15:30)
[2016-10-16] MEDS: TAMSULOSIN 0.4 MG CAPSULE PO SCH (08:11)
--- NOTE | 2016-10-16 08:15 | Nephrology Progress Note ---
Nephrology - PN: Subj Interval history: Mr. Weir is seen in follow-up of his chronic renal impairment. His Hernandez catheter is been removed and his creatinine is up to 4.8 from 4.3. He says he feels like he is emptying well but he will have a bladder scan later today to check that. He is taking Flomax. His chest is clear his abdomen is soft. He is eating a regular diet this morning and hopes to be discharged if he tolerates that well. We will see him in clinic as scheduled. His iron saturation is 20% which is barely adequate so will take advantage of his IV and give 300 mg of Venofer today. Also his uric acid is 10 so he would benefit from increasing his allopurinol from 100 mg daily to 200 and will do that. Exam (PN)-Nephrology - Vital Signs Vital signs: Period Temp Pulse Resp BP Sys/Cotto Pulse Ox Last 24 Hr 97.4 F-98.4 F 74-86 18-20 122-163/71-89 94-100 - Lab 10/16/16 05:51 10/16/16 02:11 Most recent lab results Calcium 8.4 MG/DL (8.5-10.1) L 10/16/16 02:11 Magnesium 1.5 MG/DL (1.8-2.4) L 10/16/16 02:11 Assessment and Plan (1) Chronic renal failure Status: Acute Current Visit: Yes (2) Small bowel obstruction Status: Acute Current Visit: Yes
[2016-10-16] MEDS ORDERED: ALLOPURINOL 100 MG TABLET PO SCH (08:17)
--- NOTE | 2016-10-16 08:35 | General Surgery Progress Note ---
Assessment and Plan (1) Small bowel obstruction Status: Acute Assessment and plan: Impression: Partial small bowel obstruction, resolved next Plan: Patient would like to go home. He is tolerating a diet and having no further symptoms. We'll plan for discharge home if okay with his other physicians. Discharge in structure and were given. He was instructed to return to the emergency room for any return of his symptoms. He can be discharged home on his home medications and whatever changes his other physicians deem necessary. Current Visit: Yes Subjective Patient reports: Present: no new complaints Narrative: Tolerating regular diet with no nausea vomiting abdominal pain or distention. Symptoms have completely resolved. His stoma has good output. He wants to go home. Exam - Constitutional Vitals: Period Temp Pulse Resp BP Sys/Cotto Pulse Ox Last 24 Hr 97.4 F-98.4 F 74-86 18-20 122-163/71-89 94-100 General appearance: no acute distress - Head Head exam: Present: normocephalic - ENT Mouth exam: Present: normal external inspection - Neck Neck exam: Present: normal inspection, trachea midline - Respiratory Respiratory exam: Present: clear to auscultation bilaterally - Cardiovascular Cardiovascular exam: Present: RRR - GI/Abdominal GI/Abdominal exam: Present: soft (nontender nondistended) - Back Exam Back exam: Present: normal inspection - Neurological Exam Neurological exam: Present: alert, oriented X3 Speech: Present: normal - Skin Skin exam: Present: normal color Results - Labs CBC & BMP: 10/16/16 05:51 10/16/16 02:11 Lab Results: I have reviewed the past 24 hour labs
--- NOTE | 2016-10-16 08:38 | Discharge Summary ---
Hospital Course - Hospital Course Hospital Course: 76-year-old male with multiple previous abdominal surgeries was admitted with small bowel obstruction. He was treated with conservative therapy with bowel rest and NG tube. He slowly improved and at discharge is tolerating a diet with resolution of all of his symptoms. He has renal insufficiency being managed by Dr. Vazquez. Also has voiding problems managed by Dr. Shabazz. Will discharge home if okay with them. Diagnosis - Discharge Diagnosis (1) Small bowel obstruction Status: Acute Discharge Plan - Discharge Medications Continue hydrALAZINE TAB [Apresoline Tab] 50 mg PO BID Tamsulosin [Flomax] 0.4 mg PO BID Aspirin EC Tab 81 mg PO QAM Esomeprazole Magnesium [Esomeprazole] 40 mg PO QAM Colchicine [Colcrys] 0.6 mg PO Q1H PRN PRN Reason: Gout Carvedilol 25 mg PO BID Allopurinol [Zyloprim] 100 mg PO QAM glyBURIDE [Glyburide] 2.5 mg PO QAM Furosemide Tab [Lasix Tab] 40 mg PO BID DIURETIC - Follow Up or Referral - Forms/Instructions Exam - Constitutional Vitals: Period Temp Pulse Resp BP Sys/Cotto Pulse Ox Last 24 Hr 97.4 F-98.4 F 74-86 18-20 122-163/71-89 94-100 Discharge Results Labs on day of discharge: Labs from last 24 hours 10/16/16 10/16/16 10/16/16 05:51 05:28 02:11 WBC 7.7 RBC 3.71 L Hgb 7.6 L Hct 27.2 L MCV 73.3 L MCH 21 L MCHC 27.9 L RDW 18.8 H Plt Count 245 Neut % (Auto) 75.8 H Lymph % (Auto) 11.6 L [place] % (Auto) 9.8 Eos % (Auto) 1.8 Baso % (Auto) 0.1 Neut # (Auto) 5.8 Lymph # (Auto) 0.9 L [place] # (Auto) 0.8 Eos # (Auto) 0.1 Baso # (Auto) 0.0 Immature Gran % 0.9 Nucleated RBC % 0.0 Immature Gran # 0.07 Nucleated RBCs # 0.00 Platelet Estimate Adequate Hypochromasia 1+ Anisocytosis Microcytosis 1+ Tear Drop Cells Slight Ovalocytes Few Sodium 145 Potassium 3.9 Chloride 108 H Carbon Dioxide 23 Anion Gap 17.9 H BUN 56 H Creatinine 4.80 H GFR Calculation 17 BUN/Creatinine Ratio 11.00 Glucose 101 POC Glucose 98 Calculated Osmolality 303.7 Calcium 8.4 L Magnesium Iron 29 L TIBC 149 L % Saturation 19.5 Total Bilirubin 0.40 AST 7 ALT < 6 L Alkaline Phosphatase 152 H B-Natriuretic Peptide Total Protein 5.6 L Albumin 2.3 L Globulin 3.3 Albumin/Globulin Ratio 0.6 L 10/16/16 10/16/16 10/16/16 02:11 02:11 02:11 WBC 8.1 RBC 3.81 Hgb 7.8 L Hct 28.5 L MCV 74.8 L MCH 21 L MCHC 27.4 L RDW 18.6 H Plt Count 254 Neut % (Auto) 79.0 H Lymph % (Auto) 9.3 L [place] % (Auto) 9.2 Eos % (Auto) 1.7 Baso % (Auto) 0.1 Neut # (Auto) 6.4 Lymph # (Auto) 0.8 L [place] # (Auto) 0.8 Eos # (Auto) 0.1 Baso # (Auto) 0.0 Immature Gran % 0.7 Nucleated RBC % 0.0 Immature Gran # 0.06 Nucleated RBCs # 0.00 Platelet Estimate Normal Hypochromasia 1+ Anisocytosis 1+ Microcytosis Tear Drop Cells Ovalocytes Sodium 144 Potassium 3.9 Chloride 109 H Carbon Dioxide 22 Anion Gap 16.9 H BUN 58 H Creatinine 4.80 H GFR Calculation 17 BUN/Creatinine Ratio 12.00 Glucose 100 POC Glucose Calculated Osmolality 301.8 Calcium 8.6 Magnesium 1.5 L Iron TIBC % Saturation Total Bilirubin AST ALT Alkaline Phosphatase B-Natriuretic Peptide 79 Total Protein Albumin Globulin Albumin/Globulin Ratio 10/16/16 10/15/16 10/15/16 00:52 17:39 10:40 WBC RBC Hgb Hct MCV MCH MCHC RDW Plt Count Neut % (Auto) Lymph % (Auto) Baca % (Auto) Eos % (Auto) Baso % (Auto) Neut # (Auto) Lymph # (Auto) B[place] # (Auto) Eos # (Auto) Baso # (Auto) Immature Gran % Nucleated RBC % Immature Gran # Nucleated RBCs # Platelet Estimate Hypochromasia Anisocytosis Microcytosis Tear Drop Cells Ovalocytes Sodium Potassium Chloride Carbon Dioxide Anion Gap BUN Creatinine GFR Calculation BUN/Creatinine Ratio Glucose POC Glucose 102 116 H 107 H Calculated Osmolality Calcium Magnesium Iron TIBC % Saturation Total Bilirubin AST ALT Alkaline Phosphatase B-Natriuretic Peptide Total Protein Albumin Globulin Albumin/Globulin Ratio DS: Provider Date of admission: 10/09/16 12:29 Primary care physician: . No PCP Attending physician on admission: Shaun Landry MD Discharging clinician: Shaun Landry MD
[2016-10-16] MEDS ORDERED: IRON SUCROSE 300 MG in SODIUM CHLORIDE 0.9% 100 ML IV ONE (09:00)
--- NOTE | 2016-10-16 09:52 | Hospitalist Progress Note ---
Assessment and Plan - Time spent with patient Time spent with patient: Less than 30 minutes (1) Small bowel obstruction Status: Acute Assessment and plan: 76-year-old -[place] male with history of colorectal cancer, hypertension, diabetes, renal failure admitted by Dr. Su with small bowel obstruction. Patient is undergone multiple abdominal surgeries with the last one being in 2011. NG tube has already been placed with greater than 500 cc of output. He does have output in his ostomy bag. His abdomen is now soft and nontender. Will admit the patient for observation and try to resolve the small bowel obstruction conservatively. Patient's creatinine is 4.9 and he is a patient of Dr. Vazquez so will consult him to follow. We will also consult hospitalist for medical management of this patient with diabetes and hypertension on n.p.o. status. Dr. uS has seen and examined patient. 10/14/[address] su has dc ngt and started clear diet that pt is tolerating. advance diet per dr su 10/16/2016 small bowel obstruction has resolved. Patient is tolerating a regular diet and having ostomy output. Current Visit: Yes (2) Chronic renal failure Status: Acute Assessment and plan: renal failure improved. nephrology is following. 10/16/2016 patient's renal function is at his baseline. Dr. Vazquez is following. He is receiving iron IV as we speak for his iron deficiency anemia. Current Visit: Yes (3) Diabetes Status: Acute Assessment and plan: blood sugars under control. cont SSI and po meds. 10/16/2016 patient's blood sugars are under good control. Restart all of his home medicines. Follow-up with his primary care doctor and his normal scheduled appointment. Current Visit: Yes (4) Hypertension Status: Acute Assessment and plan: BP under control on po meds and prn iv. 10/16/2016 blood pressure is under good control with his home regimen with this morning's pressure at 134/73. Current Visit: Yes (5) Urinary retention due to benign prostatic hyperplasia Status: Acute Assessment and plan: uop ok w stanton. being followed by dr varghese from urology. 10/16/2016 Stanton has what been removed and patient is urinating well. Bladder scan showing 215 ml residual. Should be good to go home. Flomax has been restarted. Current Visit: Yes Hospitalist: Subjective Interval history: Patient feels much better today. He is tolerating a diet and having good ostomy output. His belly pain has resolved. His Stanton has been removed and he is urinating well. Bladder scan showing 215 mils. He is on Flomax twice daily. Patient's blood sugars are controlled with this morning's blood sugar at 98. Patient is also really receiving IV iron per Dr. Vazquez for his low iron stores. He will be going home after this. Exam - Constitutional Vitals: Period Temp Pulse Resp BP Sys/Cotto Pulse Ox Last 24 Hr 97.4 F-98.4 F 74-86 18-20 122-163/71-89 94-100 Exam: 76-year-old -[place] male, no acute distress, alert and oriented Chest clear CV regular rate and rhythm Abdomen soft nontender with good ostomy output Extremities with mild pedal edema Results - Labs CBC & BMP: 10/16/16 05:51 10/16/16 02:11 Lab Results: I have reviewed the past 24 hour labs
[2016-10-16 15:57] VITALS: BP 139/73
== END 2016-10-16 16:47 | disposition home or self-care (01) | DRG 389 ==
LOC: EDUNIT# → EDBD → N.ED 10:16 → N.EDINP 10:16 → N.3E 16:30
PROVIDERS: ADMIT Surgery; ATTEND Surgery

== ENCOUNTER 2017-05-07 14:47 | Inpatient (IN) ==
[2017-05-07 15:14] LABS: Apearance,Urine CLEAR (Clear); Bilirubin,Urine Negative (Negative); Blood, Urine Negative (Negative); Glucose,Urine (UA) Negative (Negative); Ketones,Urine Negative (Negative); Nitrite,Urine Negative (Negative); Protein,Urine 30 MG/DL; RBC,Urine <1 /HPF (0-4); Squamous Epithelial Cell,Urine Occasional /HPF (0-10); Urine Color Yellow (Yellow); Urine Specific Gravity 1.009 (1.001-1.035); Urine Urobilinogen < 2.0 EU/DL (0.2-1.0); WBC,Urine 4 /HPF (0-6)
[2017-05-07 15:22] LABS: Basophils % 0.3 % (0.0-0.8); Eosinophils # 0.1 10*3/uL (0.0-0.87); Eosinophils % 1.6 % (0.00-10.9); Hematocrit 26.2 VOL% (42.0-52.0); Hemoglobin 7.3 GM/DL (14.0-18.0); Immature Granulocytes % 0.7 %; Immature Granulocytes Absolute 0.05 #; Lymphocytes # 0.8 10*3/uL (1.4-4.0); Lymphocytes % 11.2 % (21.2-54.2); Mean Corpuscular HGB Conc 27.9 GM/DL (32-36); Mean Corpuscular Hemoglobin 21 PG (27-34); Mean Corpuscular Volume 76.8 FL (87-102); Mean Platelet Volume 9.5 FL (9.6-12.0); Monocytes # 0.6 10*3/uL (0.11-0.8); Monocytes % 8.7 % (1.7-12.7); Neutrophils # 5.2 10*3/uL (1.4-7.4); Neutrophils % 77.5 % (38.7-73.9); Platelet Count 340 T/CUMM (130-400); Red Blood Count 3.41 MC/CUMM (3.8-5.5); Red Cell Distribution Width 17.9 % (9.3-17.3); White Blood Count 6.7 T/CUMM (4-12)
[2017-05-07] MEDS ORDERED: HYDROmorphone 2 MG/1 ML VIAL IV STA (15:28)
[2017-05-07] MEDS ORDERED: ONDANSETRON 4 MG/2 ML VIAL IV STA (15:28)
[2017-05-07 15:54] LABS: Alanine Aminotransferase 9 U/L (16-61); Albumin 2.4 G/DL (3.4-5.0); Alkaline Phosphatase 213 U/L (45-117); Aspartate Amino Transferase 42 U/L (0-37); Bilirubin,Total < 0.39 MG/DL (0.2-1.0); Blood Urea Nitrogen 98 MG/DL (7-18); Calcium 9.7 MG/DL (8.5-10.1); Glucose 74 MG/DL (74-106); Magnesium 2.2 MG/DL (1.8-2.4); Osmolality,Calculated 310.3 MOS/KG (273-304); Potassium 4.4 MMOL/L (3.5-5.1); Sodium 141 MMOL/L (136-145); Total Protein 6.4 G/DL (6.4-8.3); Troponin I Only < 0.015 NG/ML (0.00-0.045)
[2017-05-07 16:11] LABS: Hypochromasia 1+
[2017-05-07 16:12] LABS: Anisocytosis 1+; Platelet Estimate Adequate
[2017-05-07] MEDS ORDERED: ONDANSETRON 4 MG/2 ML VIAL IV PRN (17:49)
[2017-05-07] MEDS ORDERED: DEXTROSE 50% 25 GM/50 ML SYRINGE IV PRN (17:49)
[2017-05-07] MEDS ORDERED: GLUCAGON 1 MG VIAL IM PRN (17:49)
[2017-05-07] MEDS ORDERED: ACETAMINOPHEN 325 MG TABLET PO PRN (17:49)
[2017-05-07] MEDS ORDERED: SODIUM CHLORIDE 0.9% 250 ML IV PRN (18:08)
[2017-05-07] MEDS ORDERED: HYDROmorphone 2 MG/1 ML VIAL IV PRN (18:09)
[2017-05-07] MEDS: SODIUM CHLORIDE 0.9% 1,000 ML IV SCH (18:18)
[2017-05-07] MEDS: INSULIN LISPRO 100 UNIT/ML SUBCUT SCH (20:54)
[2017-05-07] MEDS: CARVEDILOL 25 MG TABLET PO SCH (20:59)
[2017-05-07] MEDS: FUROSEMIDE 40 MG TABLET PO SCH (20:59)
[2017-05-07] MEDS: TAMSULOSIN 0.4 MG CAPSULE PO SCH (20:59)
[2017-05-07] MEDS: HYDROmorphone 2 MG/1 ML VIAL IV PRN (21:44)
[2017-05-07] MEDS: ZALEPLON 5 MG CAPSULE PO PRN (21:44)
[2017-05-08] MEDS: HYDROmorphone 2 MG/1 ML VIAL IV PRN ×7 (01:27→20:25)
[2017-05-08 05:24] LABS: Basophils % 0.2 % (0.0-0.8); Eosinophils # 0.1 10*3/uL (0.0-0.87); Eosinophils % 0.9 % (0.00-10.9); Hematocrit 29.8 VOL% (42.0-52.0); Hemoglobin 8.7 GM/DL (14.0-18.0); Immature Granulocytes % 0.5 %; Immature Granulocytes Absolute 0.04 #; Lymphocytes # 0.8 10*3/uL (1.4-4.0); Lymphocytes % 8.8 % (21.2-54.2); Mean Corpuscular HGB Conc 29.2 GM/DL (32-36); Mean Corpuscular Hemoglobin 23 PG (27-34); Mean Corpuscular Volume 78.8 FL (87-102); Mean Platelet Volume 9.8 FL (9.6-12.0); Monocytes % 11.4 % (1.7-12.7); Neutrophils # 6.8 10*3/uL (1.4-7.4); Neutrophils % 78.2 % (38.7-73.9); Platelet Count 307 T/CUMM (130-400); Red Blood Count 3.78 MC/CUMM (3.8-5.5); White Blood Count 8.6 T/CUMM (4-12)
[2017-05-08 05:49] LABS: Calcium 9.8 MG/DL (8.5-10.1); Magnesium 2.1 MG/DL (1.8-2.4); Osmolality,Calculated 305.7 MOS/KG (273-304); Potassium 5.3 MMOL/L (3.5-5.1)
[2017-05-08] MEDS ORDERED: ASPIRIN EC 81 MG TABLET PO SCH (09:00)
[2017-05-08] MEDS ORDERED: NON-FORMULARY MEDICATION (Esomeprazole Magnesium [Esomeprazole] 40 MG) PO SCH (09:00)
[2017-05-08] MEDS ORDERED: HYDROmorphone 2 MG/1 ML VIAL IV ONE (09:09)
[2017-05-08] MEDS: fentaNYL 50 MCG/HR PATCH TRANSDERM SCH (09:23)
[2017-05-08] MEDS: FUROSEMIDE 40 MG TABLET PO SCH (09:25)
[2017-05-08] MEDS: PANTOPRAZOLE 40 MG TABLET PO SCH (09:25)
[2017-05-08] MEDS: glyBURIDE 2.5 MG TABLET PO SCH (09:26)
[2017-05-08] MEDS: ALLOPURINOL 100 MG TABLET PO SCH (09:26)
[2017-05-08] MEDS: CARVEDILOL 25 MG TABLET PO SCH ×2 (09:26→21:22)
[2017-05-08] MEDS: BICALUTAMIDE 50 MG TABLET PO SCH (09:26)
[2017-05-08] MEDS: TAMSULOSIN 0.4 MG CAPSULE PO SCH ×2 (09:26→21:23)
[2017-05-08] MEDS: INSULIN LISPRO 100 UNIT/ML SUBCUT SCH ×3 (09:29→16:13)
[2017-05-08] MEDS: SODIUM CHLORIDE 0.9% 1,000 ML IV SCH (14:50)
[2017-05-08 15:03] LABS: Apearance,Urine Slightly Hazy (Clear); Bacteria,Urine Occasional /HPF (Few); Bilirubin,Urine Negative (Negative); Blood, Urine Negative (Negative); Glucose,Urine (UA) Negative (Negative); Ketones,Urine Negative (Negative); Mucus,Urine Occasional /LPF (Occasional); Nitrite,Urine Negative (Negative); Protein,Urine Negative; RBC,Urine <1 /HPF (0-4); Urine Color Yellow (Yellow); Urine Urobilinogen < 2.0 EU/DL (0.2-1.0); WBC,Urine 2 /HPF (0-6)
[2017-05-08] MEDS ORDERED: SODIUM POLYSTYRENE SULFATE 15 GM/60 ML BOTTLE PO ONE (15:58)
[2017-05-08] MEDS: ENOXAPARIN 30 MG/0.3 ML SYRINGE SUBCUT SCH (16:19)
[2017-05-09] MEDS: INSULIN LISPRO 100 UNIT/ML SUBCUT SCH ×5 (00:29→22:48)
[2017-05-09] MEDS: SODIUM CHLORIDE 0.9% 1,000 ML IV SCH ×2 (00:30→09:03)
[2017-05-09] MEDS: HYDROmorphone 2 MG/1 ML VIAL IV PRN ×5 (03:13→20:22)
[2017-05-09] MEDS: PROMETHAZINE 25 MG TABLET PO PRN ×2 (03:15→20:23)
[2017-05-09 05:56] LABS: Basophils % 0.1 % (0.0-0.8); Eosinophils # 0.1 10*3/uL (0.0-0.87); Eosinophils % 1.5 % (0.00-10.9); Hematocrit 26.5 VOL% (42.0-52.0); Hemoglobin 7.5 GM/DL (14.0-18.0); Immature Granulocytes % 0.6 %; Immature Granulocytes Absolute 0.04 #; Lymphocytes # 0.6 10*3/uL (1.4-4.0); Lymphocytes % 8.4 % (21.2-54.2); Mean Corpuscular HGB Conc 28.3 GM/DL (32-36); Mean Corpuscular Hemoglobin 23 PG (27-34); Mean Corpuscular Volume 80.5 FL (87-102); Monocytes # 0.7 10*3/uL (0.11-0.8); Neutrophils # 5.4 10*3/uL (1.4-7.4); Neutrophils % 79.4 % (38.7-73.9); Platelet Count 235 T/CUMM (130-400); Red Blood Count 3.29 MC/CUMM (3.8-5.5); Red Cell Distribution Width 17.3 % (9.3-17.3); White Blood Count 6.8 T/CUMM (4-12)
[2017-05-09 06:19] LABS: Hypochromasia 1+
[2017-05-09 06:20] LABS: Giant Platelets Few; Microcytosis Slight; Ovalocytes Slight; Platelet Estimate Adequate
[2017-05-09 06:34] LABS: Alanine Aminotransferase 9 U/L (16-61); Alkaline Phosphatase 196 U/L (45-117); Aspartate Amino Transferase 24 U/L (0-37); Bilirubin,Total < 0.39 MG/DL (0.2-1.0); Blood Urea Nitrogen 90 MG/DL (7-18); Calcium 9.6 MG/DL (8.5-10.1); Glucose 99 MG/DL (74-106); Osmolality,Calculated 308.3 MOS/KG (273-304); Sodium 141 MMOL/L (136-145); Total Protein 5.8 G/DL (6.4-8.3)
[2017-05-09 07:45] LABS: Total Protein (Chem) 6.3 G/DL (6.4-8.3)
[2017-05-09 07:46] LABS: Albumin (SPE) 2.6 G/DL (3.2-5.3); Albumin (SPE) Rel % 41.7 %; Alpha 1 (SPE) 0.6 G/DL (0.1-0.4); Alpha 1 (SPE) Rel % 8.9 %; Alpha 2 (SPE) 1.2 G/DL (0.4-1.0); Beta (SPE) 1.2 G/DL (0.5-1.1); Beta (SPE) Rel % 18.5 %; Gamma (SPE) 0.7 G/DL (0.7-1.7); Gamma (SPE) Rel % 11.9 %
[2017-05-09] MEDS: CARVEDILOL 25 MG TABLET PO SCH ×2 (09:03→20:24)
[2017-05-09] MEDS: BICALUTAMIDE 50 MG TABLET PO SCH (09:03)
[2017-05-09] MEDS: TAMSULOSIN 0.4 MG CAPSULE PO SCH ×2 (09:03→20:24)
[2017-05-09] MEDS: PANTOPRAZOLE 40 MG TABLET PO SCH (09:03)
[2017-05-09] MEDS: glyBURIDE 2.5 MG TABLET PO SCH (09:03)
[2017-05-09] MEDS: ALLOPURINOL 100 MG TABLET PO SCH (09:07)
[2017-05-09 09:54] LABS: Immunoglobulin A 124 MG/DL (70-400); Immunoglobulin G 646 MG/DL (700-1600); Immunoglobulin M 34 MG/DL (40-230)
[2017-05-09 09:57] LABS: Immuno Free Light Chain Kappa 7.28 MG/DL (0.33-1.94); Immuno Free Light Chain Lambda 4.54 MG/DL (0.57-2.63)
[2017-05-09 11:00] LABS: Immunoglobulin A (Chem) 124 MG/DL (70-400); Immunoglobulin G (Chem) 646 MG/DL (700-1600); Immunoglobulin M (Chem) 34 MG/DL (40-230)
[2017-05-09] MEDS ORDERED: HYDROmorphone 2 MG/1 ML VIAL IV PRN (11:01)
[2017-05-09] MEDS ORDERED: SODIUM POLYSTYRENE SULFATE 15 GM/60 ML BOTTLE PO ONE (14:51)
[2017-05-09] MEDS: ENOXAPARIN 30 MG/0.3 ML SYRINGE SUBCUT SCH (16:51)
[2017-05-10] MEDS: HYDROmorphone 2 MG/1 ML VIAL IV PRN ×7 (00:44→23:02)
[2017-05-10] MEDS: ZALEPLON 5 MG CAPSULE PO PRN ×2 (00:46→20:46)
[2017-05-10 05:27] LABS: Basophils % 0.3 % (0.0-0.8); Eosinophils # 0.1 10*3/uL (0.0-0.87); Eosinophils % 1.5 % (0.00-10.9); Hematocrit 31.7 VOL% (42.0-52.0); Hemoglobin 9.3 GM/DL (14.0-18.0); Immature Granulocytes % 0.4 %; Immature Granulocytes Absolute 0.03 #; Lymphocytes # 0.6 10*3/uL (1.4-4.0); Lymphocytes % 8.9 % (21.2-54.2); Mean Corpuscular HGB Conc 29.3 GM/DL (32-36); Mean Corpuscular Hemoglobin 24 PG (27-34); Mean Corpuscular Volume 81.3 FL (87-102); Mean Platelet Volume 12.1 FL (9.6-12.0); Monocytes # 0.7 10*3/uL (0.11-0.8); Monocytes % 9.5 % (1.7-12.7); Neutrophils # 5.4 10*3/uL (1.4-7.4); Neutrophils % 79.4 % (38.7-73.9); Platelet Count 291 T/CUMM (130-400); Red Cell Distribution Width 17.1 % (9.3-17.3); White Blood Count 6.8 T/CUMM (4-12)
[2017-05-10 05:55] LABS: Alanine Aminotransferase < 9 U/L (16-61); Albumin 1.8 G/DL (3.4-5.0); Alkaline Phosphatase 179 U/L (45-117); Aspartate Amino Transferase 22 U/L (0-37); Bilirubin,Total < 0.39 MG/DL (0.2-1.0); Blood Urea Nitrogen 85 MG/DL (7-18); Calcium 9.2 MG/DL (8.5-10.1); Glucose 51 MG/DL (74-106); Osmolality,Calculated 305.1 MOS/KG (273-304); Sodium 142 MMOL/L (136-145); Total Protein 5.6 G/DL (6.4-8.3)
[2017-05-10] MEDS: INSULIN LISPRO 100 UNIT/ML SUBCUT SCH ×4 (08:14→21:44)
[2017-05-10] MEDS: glyBURIDE 2.5 MG TABLET PO SCH (09:24)
[2017-05-10] MEDS: BICALUTAMIDE 50 MG TABLET PO SCH (09:24)
[2017-05-10] MEDS: CARVEDILOL 25 MG TABLET PO SCH ×2 (09:24→20:46)
[2017-05-10] MEDS: PANTOPRAZOLE 40 MG TABLET PO SCH ×2 (09:25→20:46)
[2017-05-10] MEDS: ALLOPURINOL 100 MG TABLET PO SCH (09:25)
[2017-05-10] MEDS: TAMSULOSIN 0.4 MG CAPSULE PO SCH ×2 (09:25→20:46)
[2017-05-10] MEDS ORDERED: SODIUM POLYSTYRENE SULFATE 15 GM/60 ML BOTTLE PO ONE (10:28)
[2017-05-11] MEDS: HYDROmorphone 2 MG/1 ML VIAL IV PRN ×9 (01:26→21:03)
[2017-05-11 03:34] LABS: Basophils % 0.2 % (0.0-0.8); Eosinophils # 0.1 10*3/uL (0.0-0.87); Eosinophils % 1.7 % (0.00-10.9); Hematocrit 31.2 VOL% (42.0-52.0); Hemoglobin 9.1 GM/DL (14.0-18.0); Immature Granulocytes % 0.5 %; Immature Granulocytes Absolute 0.03 #; Lymphocytes # 0.6 10*3/uL (1.4-4.0); Lymphocytes % 8.7 % (21.2-54.2); Mean Corpuscular HGB Conc 29.2 GM/DL (32-36); Mean Corpuscular Hemoglobin 24 PG (27-34); Mean Platelet Volume 10.1 FL (9.6-12.0); Monocytes # 0.7 10*3/uL (0.11-0.8); Monocytes % 10.1 % (1.7-12.7); Neutrophils # 5.2 10*3/uL (1.4-7.4); Neutrophils % 78.8 % (38.7-73.9); Platelet Count 261 T/CUMM (130-400); Red Blood Count 3.85 MC/CUMM (3.8-5.5); Red Cell Distribution Width 17.4 % (9.3-17.3); White Blood Count 6.6 T/CUMM (4-12)
[2017-05-11 04:04] LABS: Calcium 9.4 MG/DL (8.5-10.1); Osmolality,Calculated 309.8 MOS/KG (273-304); Potassium 4.8 MMOL/L (3.5-5.1)
[2017-05-11 04:17] LABS: Albumin 1.9 G/DL (3.4-5.0); Bilirubin,Total 0.7 MG/DL (0.2-1.0); Calcium 9.7 MG/DL (8.5-10.1); Osmolality,Calculated 308.8 MOS/KG (273-304); Potassium 4.8 MMOL/L (3.5-5.1); Total Protein 5.7 G/DL (6.4-8.3)
[2017-05-11] MEDS: fentaNYL 50 MCG/HR PATCH TRANSDERM SCH (09:16)
[2017-05-11] MEDS: CARVEDILOL 25 MG TABLET PO SCH ×2 (09:17→21:02)
[2017-05-11] MEDS: BICALUTAMIDE 50 MG TABLET PO SCH (09:18)
[2017-05-11] MEDS: PANTOPRAZOLE 40 MG TABLET PO SCH ×2 (09:18→21:02)
[2017-05-11] MEDS: ALLOPURINOL 100 MG TABLET PO SCH (09:18)
[2017-05-11] MEDS: TAMSULOSIN 0.4 MG CAPSULE PO SCH ×2 (09:19→21:02)
[2017-05-11] MEDS: INSULIN LISPRO 100 UNIT/ML SUBCUT SCH ×4 (09:24→21:12)
[2017-05-11 12:11] LABS: Calcium 9.2 MG/DL (8.5-10.1); Potassium 4.4 MMOL/L (3.5-5.1)
[2017-05-11] MEDS: ALPRAZolam 0.25 MG TABLET PO PRN (13:34)
[2017-05-11] MEDS: DILTIAZEM CD 120 MG CAPSULE PO SCH (16:16)
[2017-05-12] MEDS: HYDROmorphone 2 MG/1 ML VIAL IV PRN ×7 (00:16→20:42)
[2017-05-12 07:40] LABS: Basophils % 0.1 % (0.0-0.8); Eosinophils # 0.1 10*3/uL (0.0-0.87); Eosinophils % 1.1 % (0.00-10.9); Hematocrit 31.1 VOL% (42.0-52.0); Hemoglobin 9.1 GM/DL (14.0-18.0); Immature Granulocytes % 0.4 %; Immature Granulocytes Absolute 0.03 #; Lymphocytes # 0.5 10*3/uL (1.4-4.0); Lymphocytes % 7.4 % (21.2-54.2); Mean Corpuscular HGB Conc 29.3 GM/DL (32-36); Mean Corpuscular Hemoglobin 24 PG (27-34); Mean Corpuscular Volume 81.6 FL (87-102); Mean Platelet Volume 10.6 FL (9.6-12.0); Monocytes # 0.8 10*3/uL (0.11-0.8); Monocytes % 11.4 % (1.7-12.7); Neutrophils # 5.8 10*3/uL (1.4-7.4); Neutrophils % 79.6 % (38.7-73.9); Platelet Count 259 T/CUMM (130-400); Red Blood Count 3.81 MC/CUMM (3.8-5.5); Red Cell Distribution Width 17.7 % (9.3-17.3); White Blood Count 7.3 T/CUMM (4-12)
[2017-05-12 07:57] LABS: Albumin 1.7 G/DL (3.4-5.0); Bilirubin,Total 0.8 MG/DL (0.2-1.0); Calcium 9.4 MG/DL (8.5-10.1); Osmolality,Calculated 310.8 MOS/KG (273-304); Potassium 4.8 MMOL/L (3.5-5.1); Total Protein 5.5 G/DL (6.4-8.3)
[2017-05-12] MEDS: INSULIN LISPRO 100 UNIT/ML SUBCUT SCH ×4 (08:44→23:20)
[2017-05-12] MEDS: DILTIAZEM CD 120 MG CAPSULE PO SCH (09:30)
[2017-05-12] MEDS: ALLOPURINOL 100 MG TABLET PO SCH (09:30)
[2017-05-12] MEDS: BICALUTAMIDE 50 MG TABLET PO SCH (09:30)
[2017-05-12] MEDS: fentaNYL 75 MCG/HR PATCH TRANSDERM SCH (09:31)
[2017-05-12] MEDS: PANTOPRAZOLE 40 MG TABLET PO SCH ×2 (09:31→20:40)
[2017-05-12] MEDS: TAMSULOSIN 0.4 MG CAPSULE PO SCH ×2 (09:31→20:40)
[2017-05-12] MEDS: CARVEDILOL 25 MG TABLET PO SCH ×2 (09:31→20:40)
[2017-05-13] MEDS: HYDROmorphone 2 MG/1 ML VIAL IV PRN ×4 (04:25→17:56)
[2017-05-13 07:43] LABS: Albumin 1.6 G/DL (3.4-5.0); Bilirubin,Total 0.6 MG/DL (0.2-1.0); Calcium 9.3 MG/DL (8.5-10.1); Magnesium 2.1 MG/DL (1.8-2.4); Osmolality,Calculated 314.7 MOS/KG (273-304); Potassium 4.5 MMOL/L (3.5-5.1); Total Protein 5.3 G/DL (6.4-8.3)
[2017-05-13 08:04] LABS: Basophils % 0.1 % (0.0-0.8); Eosinophils # 0.1 10*3/uL (0.0-0.87); Hematocrit 28.9 VOL% (42.0-52.0); Hemoglobin 8.5 GM/DL (14.0-18.0); Immature Granulocytes % 0.7 %; Immature Granulocytes Absolute 0.05 #; Lymphocytes # 0.5 10*3/uL (1.4-4.0); Lymphocytes % 7.6 % (21.2-54.2); Mean Corpuscular HGB Conc 29.4 GM/DL (32-36); Mean Corpuscular Hemoglobin 24 PG (27-34); Mean Corpuscular Volume 81.9 FL (87-102); Mean Platelet Volume 10.5 FL (9.6-12.0); Monocytes # 0.7 10*3/uL (0.11-0.8); Monocytes % 9.7 % (1.7-12.7); Neutrophils # 5.4 10*3/uL (1.4-7.4); Neutrophils % 80.9 % (38.7-73.9); Platelet Count 228 T/CUMM (130-400); Red Blood Count 3.53 MC/CUMM (3.8-5.5); Red Cell Distribution Width 17.9 % (9.3-17.3); White Blood Count 6.7 T/CUMM (4-12)
[2017-05-13] MEDS: INSULIN LISPRO 100 UNIT/ML SUBCUT SCH ×3 (08:09→17:55)
[2017-05-13] MEDS: BICALUTAMIDE 50 MG TABLET PO SCH (09:05)
[2017-05-13] MEDS: ALLOPURINOL 100 MG TABLET PO SCH (09:05)
[2017-05-13] MEDS: DILTIAZEM CD 120 MG CAPSULE PO SCH (09:05)
[2017-05-13] MEDS: TAMSULOSIN 0.4 MG CAPSULE PO SCH ×2 (09:06→21:39)
[2017-05-13] MEDS: CARVEDILOL 25 MG TABLET PO SCH ×2 (09:06→21:39)
[2017-05-13] MEDS: PANTOPRAZOLE 40 MG TABLET PO SCH ×2 (09:06→21:38)
[2017-05-13] MEDS: ZALEPLON 5 MG CAPSULE PO PRN (21:38)
[2017-05-14] MEDS: INSULIN LISPRO 100 UNIT/ML SUBCUT SCH ×5 (00:09→21:16)
[2017-05-14] MEDS: HYDROmorphone 2 MG/1 ML VIAL IV PRN ×6 (02:54→23:56)
[2017-05-14] MEDS: DILTIAZEM CD 120 MG CAPSULE PO SCH (08:54)
[2017-05-14] MEDS: CARVEDILOL 25 MG TABLET PO SCH ×2 (08:54→21:13)
[2017-05-14] MEDS: PANTOPRAZOLE 40 MG TABLET PO SCH ×2 (08:54→21:13)
[2017-05-14] MEDS: TAMSULOSIN 0.4 MG CAPSULE PO SCH ×2 (08:54→21:13)
[2017-05-14] MEDS: BICALUTAMIDE 50 MG TABLET PO SCH (08:54)
[2017-05-14] MEDS: ALLOPURINOL 100 MG TABLET PO SCH (08:54)
[2017-05-14] MEDS: fentaNYL 75 MCG/HR PATCH TRANSDERM SCH (08:55)
[2017-05-14] MEDS: ENOXAPARIN 30 MG/0.3 ML SYRINGE SUBCUT SCH (10:51)
[2017-05-14] MEDS ORDERED: DEXTROSE 50% 25 GM/50 ML VIAL IV PRN (11:00)
[2017-05-15] MEDS: HYDROmorphone 2 MG/1 ML VIAL IV PRN ×4 (05:14→18:42)
[2017-05-15 05:56] LABS: Basophils % 0.2 % (0.0-0.8); Eosinophils # 0.1 10*3/uL (0.0-0.87); Eosinophils % 0.8 % (0.00-10.9); Hematocrit 29.4 VOL% (42.0-52.0); Hemoglobin 8.6 GM/DL (14.0-18.0); Immature Granulocytes % 0.5 %; Immature Granulocytes Absolute 0.03 #; Lymphocytes # 0.4 10*3/uL (1.4-4.0); Lymphocytes % 6.5 % (21.2-54.2); Mean Corpuscular HGB Conc 29.3 GM/DL (32-36); Mean Corpuscular Hemoglobin 24 PG (27-34); Mean Corpuscular Volume 81.4 FL (87-102); Monocytes # 0.5 10*3/uL (0.11-0.8); Monocytes % 8.8 % (1.7-12.7); Neutrophils % 83.2 % (38.7-73.9); Platelet Count 231 T/CUMM (130-400); Red Blood Count 3.61 MC/CUMM (3.8-5.5); Red Cell Distribution Width 17.9 % (9.3-17.3)
[2017-05-15 06:09] LABS: Albumin 1.5 G/DL (3.4-5.0); Bilirubin,Total 0.4 MG/DL (0.2-1.0); Calcium 9.1 MG/DL (8.5-10.1); Total Protein 5.1 G/DL (6.4-8.3)
[2017-05-15] MEDS: PANTOPRAZOLE 40 MG TABLET PO SCH ×2 (08:55→21:31)
[2017-05-15] MEDS: ALLOPURINOL 100 MG TABLET PO SCH (08:55)
[2017-05-15] MEDS: BICALUTAMIDE 50 MG TABLET PO SCH (08:55)
[2017-05-15] MEDS: CARVEDILOL 25 MG TABLET PO SCH ×2 (08:55→21:31)
[2017-05-15] MEDS: DILTIAZEM CD 120 MG CAPSULE PO SCH (08:55)
[2017-05-15] MEDS: TAMSULOSIN 0.4 MG CAPSULE PO SCH ×2 (08:55→21:31)
[2017-05-15] MEDS: fentaNYL 75 MCG/HR PATCH TRANSDERM SCH (08:55)
[2017-05-15] MEDS: ENOXAPARIN 30 MG/0.3 ML SYRINGE SUBCUT SCH (08:56)
[2017-05-15] MEDS: INSULIN LISPRO 100 UNIT/ML SUBCUT SCH ×4 (10:32→21:31)
[2017-05-15] MEDS: DEXAMETHASONE 4 MG TABLET PO SCH ×3 (10:47→21:31)
[2017-05-15 14:13] LABS: INR 1.2; PT Patient Result 12.2 SECS
[2017-05-16 04:35] LABS: Calcium 9.4 MG/DL (8.5-10.1); Osmolality,Calculated 315.5 MOS/KG (273-304); Potassium 5.6 MMOL/L (3.5-5.1)
[2017-05-16] MEDS: fentaNYL 75 MCG/HR PATCH TRANSDERM SCH (08:30)
[2017-05-16] MEDS: HYDROmorphone 2 MG/1 ML VIAL IV PRN ×5 (08:30→21:52)
[2017-05-16] MEDS: PANTOPRAZOLE 40 MG TABLET PO SCH ×2 (09:44→20:21)
[2017-05-16] MEDS: DILTIAZEM CD 120 MG CAPSULE PO SCH (09:44)
[2017-05-16] MEDS: CARVEDILOL 25 MG TABLET PO SCH ×2 (09:45→20:20)
[2017-05-16] MEDS: ALLOPURINOL 100 MG TABLET PO SCH (09:50)
[2017-05-16] MEDS: DEXAMETHASONE 4 MG TABLET PO SCH ×3 (09:50→20:20)
[2017-05-16] MEDS: BICALUTAMIDE 50 MG TABLET PO SCH (09:50)
[2017-05-16] MEDS: TAMSULOSIN 0.4 MG CAPSULE PO SCH ×2 (09:50→20:21)
[2017-05-16] MEDS: ENOXAPARIN 30 MG/0.3 ML SYRINGE SUBCUT SCH (09:50)
[2017-05-16] MEDS: INSULIN LISPRO 100 UNIT/ML SUBCUT SCH ×4 (09:50→22:26)
[2017-05-17] MEDS: HYDROmorphone 2 MG/1 ML VIAL IV PRN ×3 (06:48→14:25)
[2017-05-17] MEDS: HYDROmorphone 2 MG TABLET PO PRN ×2 (08:31→19:55)
[2017-05-17] MEDS: ALLOPURINOL 100 MG TABLET PO SCH (08:32)
[2017-05-17] MEDS: ENOXAPARIN 30 MG/0.3 ML SYRINGE SUBCUT SCH (08:32)
[2017-05-17] MEDS: PANTOPRAZOLE 40 MG TABLET PO SCH ×2 (08:32→19:59)
[2017-05-17] MEDS: DEXAMETHASONE 4 MG TABLET PO SCH ×3 (08:32→19:59)
[2017-05-17] MEDS: CARVEDILOL 25 MG TABLET PO SCH ×2 (08:32→20:00)
[2017-05-17] MEDS: INSULIN LISPRO 100 UNIT/ML SUBCUT SCH ×4 (08:32→22:07)
[2017-05-17] MEDS: fentaNYL 100 MCG/HR PATCH TRANSDERM SCH (08:32)
[2017-05-17] MEDS: TAMSULOSIN 0.4 MG CAPSULE PO SCH ×3 (08:32→22:07)
[2017-05-17] MEDS: BICALUTAMIDE 50 MG TABLET PO SCH (08:32)
[2017-05-17] MEDS: DILTIAZEM CD 120 MG CAPSULE PO SCH (08:32)
[2017-05-17] MEDS ORDERED: SIMETHICONE CHEW 80 MG TABLET PO PRN (09:45)
[2017-05-17] MEDS ORDERED: ALUMINUM/MAGNES/SIMETH MAX STR 30 ML UDCUP PO PRN (09:45)
[2017-05-17] MEDS: ALPRAZolam 0.25 MG TABLET PO PRN (19:58)
[2017-05-17] MEDS: DOCUSATE SODIUM 100 MG CAPSULE PO SCH (20:02)
[2017-05-18] MEDS: HYDROmorphone 2 MG TABLET PO PRN ×2 (02:07→07:45)
[2017-05-18] MEDS: HYDROmorphone 2 MG/1 ML VIAL IV PRN ×4 (04:25→19:05)
[2017-05-18] MEDS: INSULIN LISPRO 100 UNIT/ML SUBCUT SCH ×4 (07:45→23:42)
[2017-05-18] MEDS: DEXAMETHASONE 4 MG TABLET PO SCH ×3 (09:38→20:40)
[2017-05-18] MEDS: TAMSULOSIN 0.4 MG CAPSULE PO SCH ×2 (09:38→20:41)
[2017-05-18] MEDS: DOCUSATE SODIUM 100 MG CAPSULE PO SCH ×2 (09:38→20:41)
[2017-05-18] MEDS: DILTIAZEM CD 120 MG CAPSULE PO SCH (09:38)
[2017-05-18] MEDS: BICALUTAMIDE 50 MG TABLET PO SCH (09:38)
[2017-05-18] MEDS: ALLOPURINOL 100 MG TABLET PO SCH (09:38)
[2017-05-18] MEDS: PANTOPRAZOLE 40 MG TABLET PO SCH ×2 (09:38→20:40)
[2017-05-18] MEDS: CARVEDILOL 25 MG TABLET PO SCH ×2 (09:38→20:40)
[2017-05-18] MEDS: ENOXAPARIN 30 MG/0.3 ML SYRINGE SUBCUT SCH (09:39)
[2017-05-18] MEDS: POLYETHYLENE GLYCOL POWDER 17 GM PACK PO SCH (09:39)
[2017-05-18] MEDS ORDERED: HYDROmorphone 2 MG/1 ML VIAL IV SCH (12:30)
[2017-05-18] MEDS: ALPRAZolam 0.25 MG TABLET PO PRN (20:40)
[2017-05-19] MEDS: HYDROmorphone 2 MG/1 ML VIAL IV PRN ×2 (03:19→08:58)
[2017-05-19 08:21] LABS: Calcium 9.2 MG/DL (8.5-10.1); Osmolality,Calculated 322.5 MOS/KG (273-304)
[2017-05-19 08:23] LABS: Potassium 6.8 MMOL/L (3.5-5.1)
[2017-05-19] MEDS: DILTIAZEM CD 120 MG CAPSULE PO SCH (08:57)
[2017-05-19] MEDS: CARVEDILOL 25 MG TABLET PO SCH ×2 (08:58→20:56)
[2017-05-19] MEDS: PANTOPRAZOLE 40 MG TABLET PO SCH ×3 (08:58→20:57)
[2017-05-19] MEDS: DEXAMETHASONE 4 MG TABLET PO SCH ×3 (08:58→20:56)
[2017-05-19] MEDS: ENOXAPARIN 30 MG/0.3 ML SYRINGE SUBCUT SCH (08:58)
[2017-05-19] MEDS: ALLOPURINOL 100 MG TABLET PO SCH (08:58)
[2017-05-19] MEDS: TAMSULOSIN 0.4 MG CAPSULE PO SCH ×2 (08:58→20:56)
[2017-05-19] MEDS: INSULIN LISPRO 100 UNIT/ML SUBCUT SCH ×4 (08:58→20:57)
[2017-05-19] MEDS: BICALUTAMIDE 50 MG TABLET PO SCH (08:58)
[2017-05-19] MEDS: DOCUSATE SODIUM 100 MG CAPSULE PO SCH ×2 (08:58→20:57)
[2017-05-19] MEDS: POLYETHYLENE GLYCOL POWDER 17 GM PACK PO SCH ×2 (09:05→11:19)
[2017-05-19] MEDS ORDERED: SODIUM POLYSTYRENE SULFATE 15 GM/60 ML BOTTLE PO ONE ×2 (09:20→17:03)
[2017-05-19] MEDS ORDERED: INSULIN REGULAR 100 UNIT/ML IV ONE (09:20)
[2017-05-19] MEDS ORDERED: DEXTROSE 50% 25 GM/50 ML VIAL IV ONE (09:21)
[2017-05-19] MEDS ORDERED: CALCIUM GLUCONATE 2,000 MG in SODIUM CHLORIDE 0.9% 100 ML IV ONE ×2 (09:22→11:00)
[2017-05-19] MEDS: HYDROmorphone 2 MG TABLET PO PRN ×2 (14:37→18:40)
[2017-05-19] MEDS ORDERED: INSULIN REGULAR 100 UNIT/ML SUBCUT ONE (17:05)
[2017-05-19] MEDS ORDERED: INSULIN REGULAR 100 UNIT/ML ONE (17:15)
[2017-05-19] MEDS: INSULIN GLARGINE 100 UNIT/ML SUBCUT SCH (17:18)
[2017-05-19] MEDS ORDERED: HYDROmorphone 2 MG/1 ML VIAL IM ONE (20:04)
[2017-05-20] MEDS: HYDROmorphone 2 MG TABLET PO PRN ×2 (04:00→13:56)
[2017-05-20] MEDS ORDERED: HYDROmorphone 2 MG/1 ML VIAL IM ONE (07:55)
[2017-05-20 08:15] LABS: Basophils % 0.2 % (0.0-0.8); Hematocrit 31.1 VOL% (42.0-52.0); Hemoglobin 9.3 GM/DL (14.0-18.0); Immature Granulocytes % 2.3 %; Immature Granulocytes Absolute 0.11 #; Lymphocytes # 0.1 10*3/uL (1.4-4.0); Lymphocytes % 1.7 % (21.2-54.2); Mean Corpuscular HGB Conc 29.9 GM/DL (32-36); Mean Corpuscular Hemoglobin 24 PG (27-34); Mean Corpuscular Volume 78.7 FL (87-102); Monocytes # 0.3 10*3/uL (0.11-0.8); NRBC # 0.02 10*3/uL; Neutrophils # 4.3 10*3/uL (1.4-7.4); Neutrophils % 88.8 % (38.7-73.9); Platelet Count 202 T/CUMM (130-400); Red Blood Count 3.95 MC/CUMM (3.8-5.5); Red Cell Distribution Width 17.3 % (9.3-17.3); White Blood Count 4.8 T/CUMM (4-12)
[2017-05-20] MEDS: DILTIAZEM CD 120 MG CAPSULE PO SCH (08:17)
[2017-05-20] MEDS: DOCUSATE SODIUM 100 MG CAPSULE PO SCH ×2 (08:18→20:53)
[2017-05-20] MEDS: DEXAMETHASONE 4 MG TABLET PO SCH ×3 (08:18→20:52)
[2017-05-20] MEDS: CARVEDILOL 25 MG TABLET PO SCH ×2 (08:18→20:52)
[2017-05-20] MEDS: COLLAGENASE OINT 30 GM TUBE TOP SCH ×2 (08:49→09:24)
[2017-05-20 08:51] LABS: Alanine Aminotransferase 11 U/L (16-61); Albumin 2.1 G/DL (3.4-5.0); Alkaline Phosphatase 301 U/L (45-117); Aspartate Amino Transferase 29 U/L (0-37); Bilirubin,Total < 0.39 MG/DL (0.2-1.0); Blood Urea Nitrogen 131 MG/DL (7-18); Calcium 9.3 MG/DL (8.5-10.1); Glucose 134 MG/DL (74-106); Osmolality,Calculated 326.1 MOS/KG (273-304); Sodium 142 MMOL/L (136-145); Total Protein 5.4 G/DL (6.4-8.3)
[2017-05-20 08:59] LABS: Potassium 6.1 MMOL/L (3.5-5.1)
[2017-05-20 09:04] LABS: Band Neutrophils 7 % (0-10); Lymphocytes 4 % (20-55); Metamyelocytes 1 %; Nucleated Red Blood Cells 1 (0-5); Segmented Neutrophils 85 % (50-85); Total Cells Counted 100
[2017-05-20 09:05] LABS: Anisocytosis 1+; Poikilocytosis 1+
[2017-05-20] MEDS: INSULIN LISPRO 100 UNIT/ML SUBCUT SCH ×4 (09:05→20:54)
[2017-05-20] MEDS ORDERED: SODIUM POLYSTYRENE SULFATE 15 GM/60 ML BOTTLE PO ONE (09:15)
[2017-05-20] MEDS: fentaNYL 100 MCG/HR PATCH TRANSDERM SCH (09:18)
[2017-05-20] MEDS: TAMSULOSIN 0.4 MG CAPSULE PO SCH ×2 (09:24→20:52)
[2017-05-20] MEDS: PANTOPRAZOLE 40 MG TABLET PO SCH ×2 (09:24→20:53)
[2017-05-20] MEDS: ENOXAPARIN 30 MG/0.3 ML SYRINGE SUBCUT SCH (09:24)
[2017-05-20] MEDS: BICALUTAMIDE 50 MG TABLET PO SCH (09:24)
[2017-05-20] MEDS: INSULIN GLARGINE 100 UNIT/ML SUBCUT SCH (09:25)
[2017-05-20] MEDS: POLYETHYLENE GLYCOL POWDER 17 GM PACK PO SCH (09:25)
[2017-05-20] MEDS: ALLOPURINOL 100 MG TABLET PO SCH (09:42)
[2017-05-20] MEDS: HYDROmorphone 2 MG/1 ML VIAL IV PRN ×2 (09:45→18:47)
[2017-05-21] MEDS: HYDROmorphone 2 MG/1 ML VIAL IV PRN ×4 (02:25→20:26)
[2017-05-21 06:01] LABS: Calcium 9.1 MG/DL (8.5-10.1); Osmolality,Calculated 323.3 MOS/KG (273-304); Potassium 5.5 MMOL/L (3.5-5.1)
[2017-05-21] MEDS: ENOXAPARIN 30 MG/0.3 ML SYRINGE SUBCUT SCH (08:38)
[2017-05-21] MEDS: SODIUM POLYSTYRENE SULFATE 15 GM/60 ML BOTTLE PO SCH (08:38)
[2017-05-21] MEDS: INSULIN GLARGINE 100 UNIT/ML SUBCUT SCH (08:39)
[2017-05-21] MEDS: DEXAMETHASONE 4 MG TABLET PO SCH ×3 (08:39→20:24)
[2017-05-21] MEDS: CARVEDILOL 25 MG TABLET PO SCH ×2 (08:39→20:24)
[2017-05-21] MEDS: DILTIAZEM CD 120 MG CAPSULE PO SCH (08:39)
[2017-05-21] MEDS: INSULIN LISPRO 100 UNIT/ML SUBCUT SCH ×4 (08:39→20:22)
[2017-05-21] MEDS: BICALUTAMIDE 50 MG TABLET PO SCH (08:39)
[2017-05-21] MEDS: ALLOPURINOL 100 MG TABLET PO SCH (08:40)
[2017-05-21] MEDS: DOCUSATE SODIUM 100 MG CAPSULE PO SCH ×2 (08:40→20:23)
[2017-05-21] MEDS: TAMSULOSIN 0.4 MG CAPSULE PO SCH ×2 (08:40→20:23)
[2017-05-21] MEDS: POLYETHYLENE GLYCOL POWDER 17 GM PACK PO SCH (08:40)
[2017-05-21] MEDS: PANTOPRAZOLE 40 MG TABLET PO SCH ×2 (08:40→20:24)
[2017-05-21] MEDS: COLLAGENASE OINT 30 GM TUBE TOP SCH (08:47)
[2017-05-21] MEDS: HYDROmorphone 2 MG TABLET PO PRN (13:08)
[2017-05-21] MEDS: ALPRAZolam 0.25 MG TABLET PO PRN ×2 (13:08→20:25)
[2017-05-21] MEDS: fentaNYL 100 MCG/HR PATCH TRANSDERM SCH (15:48)
[2017-05-22] MEDS: HYDROmorphone 2 MG/1 ML VIAL IV PRN ×6 (01:21→23:40)
[2017-05-22] MEDS: HYDROmorphone 2 MG TABLET PO PRN ×2 (04:49→17:23)
[2017-05-22 05:18] LABS: Eosinophils % 0.2 % (0.00-10.9); Hemoglobin 8.8 GM/DL (14.0-18.0); Immature Granulocytes % 2.1 %; Immature Granulocytes Absolute 0.12 #; Lymphocytes # 0.1 10*3/uL (1.4-4.0); Lymphocytes % 1.2 % (21.2-54.2); Mean Corpuscular HGB Conc 29.3 GM/DL (32-36); Mean Corpuscular Hemoglobin 23 PG (27-34); Mean Corpuscular Volume 79.8 FL (87-102); Mean Platelet Volume 10.3 FL (9.6-12.0); Monocytes # 0.4 10*3/uL (0.11-0.8); Monocytes % 6.9 % (1.7-12.7); NRBC # 0.02 10*3/uL; Neutrophils # 5.2 10*3/uL (1.4-7.4); Neutrophils % 89.6 % (38.7-73.9); Platelet Count 180 T/CUMM (130-400); Red Blood Count 3.76 MC/CUMM (3.8-5.5); Red Cell Distribution Width 17.4 % (9.3-17.3); White Blood Count 5.8 T/CUMM (4-12)
[2017-05-22 05:46] LABS: Band Neutrophils 1 % (0-10); Eosinophils 2 % (0-10); Hypochromasia 1+; Lymphocytes 5 % (20-55); Microcytosis 1+; Ovalocytes Slight; Segmented Neutrophils 87 % (50-85); Total Cells Counted 100
[2017-05-22 05:47] LABS: Platelet Estimate Adequate
[2017-05-22 06:14] LABS: Calcium 8.6 MG/DL (8.5-10.1); Osmolality,Calculated 323.4 MOS/KG (273-304); Potassium 5.1 MMOL/L (3.5-5.1)
[2017-05-22] MEDS: INSULIN GLARGINE 100 UNIT/ML SUBCUT SCH (08:28)
[2017-05-22] MEDS: INSULIN LISPRO 100 UNIT/ML SUBCUT SCH ×4 (08:28→21:45)
[2017-05-22] MEDS: SODIUM POLYSTYRENE SULFATE 15 GM/60 ML BOTTLE PO SCH (08:29)
[2017-05-22] MEDS: ENOXAPARIN 30 MG/0.3 ML SYRINGE SUBCUT SCH (08:30)
[2017-05-22] MEDS: DILTIAZEM CD 120 MG CAPSULE PO SCH (08:30)
[2017-05-22] MEDS: BICALUTAMIDE 50 MG TABLET PO SCH (08:31)
[2017-05-22] MEDS: PANTOPRAZOLE 40 MG TABLET PO SCH ×3 (08:31→20:17)
[2017-05-22] MEDS: DEXAMETHASONE 4 MG TABLET PO SCH ×4 (08:31→20:17)
[2017-05-22] MEDS: CARVEDILOL 25 MG TABLET PO SCH ×3 (08:31→20:17)
[2017-05-22] MEDS: ALLOPURINOL 100 MG TABLET PO SCH (08:31)
[2017-05-22] MEDS: TAMSULOSIN 0.4 MG CAPSULE PO SCH ×3 (08:32→20:17)
[2017-05-22] MEDS: DOCUSATE SODIUM 100 MG CAPSULE PO SCH ×3 (08:32→20:17)
[2017-05-22] MEDS: POLYETHYLENE GLYCOL POWDER 17 GM PACK PO SCH (08:32)
[2017-05-22] MEDS: COLLAGENASE OINT 30 GM TUBE TOP SCH (08:32)
[2017-05-22] MEDS ORDERED: MAGNESIUM HYDROXIDE SUSP 30 ML UDCUP PO PRN (19:43)
[2017-05-23] MEDS: HYDROmorphone 2 MG/1 ML VIAL IV PRN ×5 (04:04→21:56)
[2017-05-23 05:21] LABS: Eosinophils % 0.2 % (0.00-10.9); Hematocrit 29.1 VOL% (42.0-52.0); Hemoglobin 8.6 GM/DL (14.0-18.0); Immature Granulocytes % 2.2 %; Immature Granulocytes Absolute 0.14 #; Lymphocytes # 0.1 10*3/uL (1.4-4.0); Lymphocytes % 1.2 % (21.2-54.2); Mean Corpuscular HGB Conc 29.6 GM/DL (32-36); Mean Corpuscular Hemoglobin 24 PG (27-34); Mean Corpuscular Volume 79.7 FL (87-102); Monocytes # 0.5 10*3/uL (0.11-0.8); Monocytes % 7.3 % (1.7-12.7); NRBC # 0.03 10*3/uL; Neutrophils # 5.8 10*3/uL (1.4-7.4); Neutrophils % 89.1 % (38.7-73.9); Platelet Count 167 T/CUMM (130-400); Red Blood Count 3.65 MC/CUMM (3.8-5.5); Red Cell Distribution Width 17.7 % (9.3-17.3); White Blood Count 6.5 T/CUMM (4-12)
[2017-05-23 05:36] LABS: Calcium 8.6 MG/DL (8.5-10.1); Osmolality,Calculated 317.5 MOS/KG (273-304); Potassium 5.4 MMOL/L (3.5-5.1)
[2017-05-23 06:40] LABS: Band Neutrophils 1 % (0-10); Lymphocytes 10 % (20-55); Myelocytes 1 %; Segmented Neutrophils 84 % (50-85); Total Cells Counted 100
[2017-05-23 06:41] LABS: Anisocytosis 2+; Platelet Estimate Normal
[2017-05-23] MEDS: ENOXAPARIN 30 MG/0.3 ML SYRINGE SUBCUT SCH (09:19)
[2017-05-23] MEDS: INSULIN GLARGINE 100 UNIT/ML SUBCUT SCH (09:19)
[2017-05-23] MEDS: INSULIN LISPRO 100 UNIT/ML SUBCUT SCH ×4 (09:19→20:54)
[2017-05-23] MEDS: TAMSULOSIN 0.4 MG CAPSULE PO SCH ×2 (09:20→20:52)
[2017-05-23] MEDS: PANTOPRAZOLE 40 MG TABLET PO SCH ×2 (09:20→20:52)
[2017-05-23] MEDS: DEXAMETHASONE 4 MG TABLET PO SCH (09:20)
[2017-05-23] MEDS: BICALUTAMIDE 50 MG TABLET PO SCH (09:20)
[2017-05-23] MEDS: CARVEDILOL 25 MG TABLET PO SCH ×2 (09:20→20:52)
[2017-05-23] MEDS: DILTIAZEM CD 120 MG CAPSULE PO SCH (09:20)
[2017-05-23] MEDS: ALLOPURINOL 100 MG TABLET PO SCH (09:20)
[2017-05-23] MEDS: DOCUSATE SODIUM 100 MG CAPSULE PO SCH ×2 (09:21→20:52)
[2017-05-23] MEDS: SODIUM POLYSTYRENE SULFATE 15 GM/60 ML BOTTLE PO SCH (09:21)
[2017-05-23] MEDS: POLYETHYLENE GLYCOL POWDER 17 GM PACK PO SCH (09:22)
[2017-05-23] MEDS: fentaNYL 100 MCG/HR PATCH TRANSDERM SCH (09:25)
[2017-05-23] MEDS: COLLAGENASE OINT 30 GM TUBE TOP SCH (14:16)
[2017-05-24] MEDS: HYDROmorphone 2 MG/1 ML VIAL IV PRN ×4 (01:44→19:36)
[2017-05-24 04:15] LABS: Eosinophils % 0.5 % (0.00-10.9); Hemoglobin 8.9 GM/DL (14.0-18.0); Immature Granulocytes % 1.9 %; Immature Granulocytes Absolute 0.14 #; Lymphocytes # 0.1 10*3/uL (1.4-4.0); Lymphocytes % 1.9 % (21.2-54.2); Mean Corpuscular HGB Conc 29.7 GM/DL (32-36); Mean Corpuscular Hemoglobin 24 PG (27-34); Mean Corpuscular Volume 79.6 FL (87-102); Monocytes # 0.7 10*3/uL (0.11-0.8); Monocytes % 9.4 % (1.7-12.7); Neutrophils # 6.3 10*3/uL (1.4-7.4); Neutrophils % 86.3 % (38.7-73.9); Platelet Count 185 T/CUMM (130-400); Red Blood Count 3.77 MC/CUMM (3.8-5.5); Red Cell Distribution Width 17.7 % (9.3-17.3); White Blood Count 7.4 T/CUMM (4-12)
[2017-05-24 05:37] LABS: Band Neutrophils 1 % (0-10); Lymphocytes 1 % (20-55); Nucleated Red Blood Cells 1 (0-5); Platelet Estimate Normal; Segmented Neutrophils 91 % (50-85); Total Cells Counted 100
[2017-05-24 05:38] LABS: Giant Platelets Few; Hypochromasia 1+; Microcytosis Slight; Ovalocytes Slight
[2017-05-24] MEDS ORDERED: DEXAMETHASONE 4 MG TABLET PO SCH (09:00)
[2017-05-24] MEDS: INSULIN LISPRO 100 UNIT/ML SUBCUT SCH ×4 (09:11→21:28)
[2017-05-24] MEDS: HYDROmorphone 2 MG TABLET PO PRN (09:34)
[2017-05-24] MEDS: ENOXAPARIN 30 MG/0.3 ML SYRINGE SUBCUT SCH (09:35)
[2017-05-24] MEDS: CARVEDILOL 25 MG TABLET PO SCH ×2 (09:35→21:27)
[2017-05-24] MEDS: PANTOPRAZOLE 40 MG TABLET PO SCH ×2 (09:35→21:26)
[2017-05-24] MEDS: DILTIAZEM CD 120 MG CAPSULE PO SCH (09:35)
[2017-05-24] MEDS: TAMSULOSIN 0.4 MG CAPSULE PO SCH ×2 (09:35→21:26)
[2017-05-24] MEDS: BICALUTAMIDE 50 MG TABLET PO SCH (09:35)
[2017-05-24] MEDS: INSULIN GLARGINE 100 UNIT/ML SUBCUT SCH (09:35)
[2017-05-24] MEDS: COLLAGENASE OINT 30 GM TUBE TOP SCH (09:36)
[2017-05-24] MEDS: POLYETHYLENE GLYCOL POWDER 17 GM PACK PO SCH (09:36)
[2017-05-24] MEDS: ALLOPURINOL 100 MG TABLET PO SCH (09:36)
[2017-05-24] MEDS: DOCUSATE SODIUM 100 MG CAPSULE PO SCH ×2 (09:36→21:26)
[2017-05-24 10:47] LABS: Calcium 8.6 MG/DL (8.5-10.1); Magnesium 1.6 MG/DL (1.8-2.4); Osmolality,Calculated 310.3 MOS/KG (273-304); Potassium 5.1 MMOL/L (3.5-5.1)
[2017-05-24] MEDS: SODIUM POLYSTYRENE SULFATE 15 GM/60 ML BOTTLE PO SCH (11:04)
[2017-05-24] MEDS ORDERED: MAGNESIUM SULF RIDER 2 GM in PREMIX 1 EACH IV ONE (11:09)
[2017-05-25] MEDS: HYDROmorphone 2 MG/1 ML VIAL IV PRN ×5 (01:36→22:00)
[2017-05-25 06:48] LABS: Basophils % 0.2 % (0.0-0.8); Eosinophils # 0.1 10*3/uL (0.0-0.87); Eosinophils % 0.8 % (0.00-10.9); Hematocrit 30.9 VOL% (42.0-52.0); Immature Granulocytes Absolute 0.13 #; Lymphocytes # 0.1 10*3/uL (1.4-4.0); Lymphocytes % 1.9 % (21.2-54.2); Mean Corpuscular HGB Conc 29.1 GM/DL (32-36); Mean Corpuscular Hemoglobin 24 PG (27-34); Mean Corpuscular Volume 81.1 FL (87-102); Monocytes # 0.6 10*3/uL (0.11-0.8); Monocytes % 9.3 % (1.7-12.7); Neutrophils # 5.5 10*3/uL (1.4-7.4); Neutrophils % 85.8 % (38.7-73.9); Platelet Count 169 T/CUMM (130-400); Red Blood Count 3.81 MC/CUMM (3.8-5.5); Red Cell Distribution Width 18.1 % (9.3-17.3); White Blood Count 6.4 T/CUMM (4-12)
[2017-05-25 07:29] LABS: Burr Cells Slight; Eosinophils 2 % (0-10); Giant Platelets Few; Hypochromasia Slight; Lymphocytes 1 % (20-55); Microcytosis Slight; Ovalocytes Slight; Platelet Estimate Normal; Segmented Neutrophils 91 % (50-85); Total Cells Counted 100
[2017-05-25 07:38] LABS: Albumin 1.9 G/DL (3.4-5.0); Bilirubin,Total 0.4 MG/DL (0.2-1.0); Calcium 8.5 MG/DL (8.5-10.1); Osmolality,Calculated 301.8 MOS/KG (273-304); Potassium 5.8 MMOL/L (3.5-5.1)
[2017-05-25] MEDS: INSULIN LISPRO 100 UNIT/ML SUBCUT SCH ×4 (08:08→21:19)
[2017-05-25] MEDS ORDERED: DEXAMETHASONE 4 MG TABLET PO SCH (09:00)
[2017-05-25] MEDS: BICALUTAMIDE 50 MG TABLET PO SCH (09:24)
[2017-05-25] MEDS: DILTIAZEM CD 120 MG CAPSULE PO SCH (09:24)
[2017-05-25] MEDS: DOCUSATE SODIUM 100 MG CAPSULE PO SCH ×2 (09:25→20:32)
[2017-05-25] MEDS: CARVEDILOL 25 MG TABLET PO SCH ×2 (09:25→20:32)
[2017-05-25] MEDS: TAMSULOSIN 0.4 MG CAPSULE PO SCH ×2 (09:25→20:32)
[2017-05-25] MEDS: INSULIN GLARGINE 100 UNIT/ML SUBCUT SCH (09:26)
[2017-05-25] MEDS: SODIUM POLYSTYRENE SULFATE 15 GM/60 ML BOTTLE PO SCH (09:27)
[2017-05-25] MEDS: ENOXAPARIN 30 MG/0.3 ML SYRINGE SUBCUT SCH (09:29)
[2017-05-25] MEDS: POLYETHYLENE GLYCOL POWDER 17 GM PACK PO SCH (10:37)
[2017-05-25] MEDS: COLLAGENASE OINT 30 GM TUBE TOP SCH (10:38)
[2017-05-25] MEDS: SODIUM ACETATE 150 MEQ in STERILE WATER INJ 1,000 ML IV SCH ×2 (11:14→23:28)
[2017-05-26] MEDS: HYDROmorphone 2 MG/1 ML VIAL IV PRN ×6 (02:55→21:21)
[2017-05-26 05:03] LABS: Basophils % 0.1 % (0.0-0.8); Eosinophils # 0.1 10*3/uL (0.0-0.87); Eosinophils % 0.8 % (0.00-10.9); Hematocrit 28.7 VOL% (42.0-52.0); Hemoglobin 8.5 GM/DL (14.0-18.0); Immature Granulocytes % 1.7 %; Immature Granulocytes Absolute 0.12 #; Lymphocytes # 0.1 10*3/uL (1.4-4.0); Lymphocytes % 1.7 % (21.2-54.2); Mean Corpuscular HGB Conc 29.6 GM/DL (32-36); Mean Corpuscular Hemoglobin 24 PG (27-34); Mean Corpuscular Volume 79.3 FL (87-102); Monocytes # 0.7 10*3/uL (0.11-0.8); Monocytes % 9.7 % (1.7-12.7); Neutrophils # 6.2 10*3/uL (1.4-7.4); Platelet Count 172 T/CUMM (130-400); Red Blood Count 3.62 MC/CUMM (3.8-5.5); Red Cell Distribution Width 17.9 % (9.3-17.3); White Blood Count 7.2 T/CUMM (4-12)
[2017-05-26 05:30] LABS: Albumin 1.9 G/DL (3.4-5.0); Bilirubin,Total 0.4 MG/DL (0.2-1.0); Calcium 8.9 MG/DL (8.5-10.1); Magnesium 1.7 MG/DL (1.8-2.4); Osmolality,Calculated 304.3 MOS/KG (273-304); Total Protein 4.8 G/DL (6.4-8.3)
[2017-05-26 05:32] LABS: Band Neutrophils 1 % (0-10); Giant Platelets Few; Hypochromasia 1+; Lymphocytes 2 % (20-55); Microcytosis Slight; Ovalocytes Slight; Platelet Estimate Normal; Segmented Neutrophils 91 % (50-85); Total Cells Counted 100
[2017-05-26] MEDS: INSULIN LISPRO 100 UNIT/ML SUBCUT SCH ×3 (07:23→16:39)
[2017-05-26] MEDS ORDERED: CLINDAMYCIN INJ 900 MG in PREMIX 1 EACH IV ONE (08:00)
[2017-05-26] MEDS: CARVEDILOL 25 MG TABLET PO SCH ×2 (08:20→21:27)
[2017-05-26] MEDS: DILTIAZEM CD 120 MG CAPSULE PO SCH (08:20)
[2017-05-26] MEDS: COLLAGENASE OINT 30 GM TUBE TOP SCH (09:46)
[2017-05-26] MEDS ORDERED: BACITRACIN OINT 0.9 GM PACK TOP ONE (13:01)
[2017-05-26] MEDS ORDERED: MIDAZOLAM 2 MG/2 ML VIAL ONE (14:01)
[2017-05-26] MEDS ORDERED: fentaNYL 100 MCG/2 ML VIAL ONE (14:01)
[2017-05-26] MEDS ORDERED: HYDROmorphone 2 MG/1 ML VIAL ONE (14:20)
[2017-05-26] MEDS ORDERED: ONDANSETRON 4 MG/2 ML VIAL ONE (14:20)
[2017-05-26] MEDS ORDERED: ONDANSETRON 4 MG/2 ML VIAL IV PRN (14:27)
[2017-05-26] MEDS ORDERED: PROPOFOL 200 MG/20 ML VIAL IV ONE (14:31)
[2017-05-26] MEDS ORDERED: DESFLURANE 1 UNIT/15 MINUTE INH ONE (14:31)
[2017-05-26] MEDS ORDERED: GLYCOPYRROLATE 0.4 MG/2 ML VIAL ONE (14:31)
[2017-05-26] MEDS ORDERED: SODIUM CHLORIDE 0.9% 1,000 ML IV ONE (14:31)
[2017-05-26] MEDS ORDERED: ROCURONIUM 100 MG/10 ML VIAL IV ONE (14:31)
[2017-05-26] MEDS ORDERED: ROPIVACAINE 0.5% 30 ML VIAL ONE (14:43)
[2017-05-26] MEDS: fentaNYL 100 MCG/HR PATCH TRANSDERM SCH (15:43)
[2017-05-26] MEDS: BICALUTAMIDE 50 MG TABLET PO SCH (16:14)
[2017-05-26] MEDS: DOCUSATE SODIUM 100 MG CAPSULE PO SCH ×2 (16:14→21:27)
[2017-05-26] MEDS: TAMSULOSIN 0.4 MG CAPSULE PO SCH ×2 (16:15→21:27)
[2017-05-26] MEDS: SODIUM POLYSTYRENE SULFATE 15 GM/60 ML BOTTLE PO SCH (16:19)
[2017-05-26] MEDS: INSULIN GLARGINE 100 UNIT/ML SUBCUT SCH (16:38)
[2017-05-26] MEDS: POLYETHYLENE GLYCOL POWDER 17 GM PACK PO SCH (16:38)
[2017-05-26] MEDS: SODIUM ACETATE 150 MEQ in STERILE WATER INJ 1,000 ML IV SCH ×3 (16:44→21:18)
[2017-05-26] MEDS: CLINDAMYCIN INJ 900 MG in PREMIX 1 EACH IV SCH (18:58)
[2017-05-27] MEDS: HYDROmorphone 2 MG/1 ML VIAL IV PRN ×4 (01:25→23:48)
[2017-05-27] MEDS ORDERED: guaiFENesin 200 MG/10 ML UDCUP PO PRN (01:28)
[2017-05-27] MEDS: CLINDAMYCIN INJ 900 MG in PREMIX 1 EACH IV SCH (02:01)
[2017-05-27] MEDS: INSULIN LISPRO 100 UNIT/ML SUBCUT SCH ×5 (02:12→21:11)
[2017-05-27] MEDS: SODIUM ACETATE 150 MEQ in STERILE WATER INJ 1,000 ML IV SCH (05:05)
[2017-05-27] MEDS ORDERED: MIDAZOLAM 2 MG/2 ML VIAL ONE (06:58)
[2017-05-27] MEDS ORDERED: fentaNYL 100 MCG/2 ML VIAL ONE (06:58)
[2017-05-27 07:38] LABS: Albumin 1.6 G/DL (3.4-5.0); Bilirubin,Total 0.5 MG/DL (0.2-1.0); Calcium 8.1 MG/DL (8.5-10.1); Magnesium 1.4 MG/DL (1.8-2.4); Osmolality,Calculated 303.3 MOS/KG (273-304); Potassium 5.1 MMOL/L (3.5-5.1); Total Protein 4.2 G/DL (6.4-8.3)
[2017-05-27] MEDS: INSULIN GLARGINE 100 UNIT/ML SUBCUT SCH (07:47)
[2017-05-27 08:12] LABS: Eosinophils % 0.4 % (0.00-10.9); Hematocrit 24.8 VOL% (42.0-52.0); Hemoglobin 7.5 GM/DL (14.0-18.0); Immature Granulocytes % 0.9 %; Immature Granulocytes Absolute 0.06 #; Lymphocytes # 0.1 10*3/uL (1.4-4.0); Mean Corpuscular HGB Conc 30.2 GM/DL (32-36); Mean Corpuscular Hemoglobin 24 PG (27-34); Monocytes # 0.5 10*3/uL (0.11-0.8); Monocytes % 7.2 % (1.7-12.7); Neutrophils # 6.2 10*3/uL (1.4-7.4); Neutrophils % 90.5 % (38.7-73.9); Red Blood Count 3.18 MC/CUMM (3.8-5.5); Red Cell Distribution Width 18.3 % (9.3-17.3); White Blood Count 6.9 T/CUMM (4-12)
[2017-05-27 08:13] LABS: Platelet Count 123 T/CUMM (130-400)
[2017-05-27] MEDS ORDERED: MAGNESIUM SULF RIDER 4 GM in PREMIX 1 EACH IV ONE (08:50)
[2017-05-27 09:13] LABS: Hypochromasia 1+; Macrocytosis Slight
[2017-05-27] MEDS: BICALUTAMIDE 50 MG TABLET PO SCH (09:44)
[2017-05-27] MEDS: DILTIAZEM CD 120 MG CAPSULE PO SCH (09:45)
[2017-05-27] MEDS: PANTOPRAZOLE 40 MG TABLET PO PRN (09:46)
[2017-05-27] MEDS: DOCUSATE SODIUM 100 MG CAPSULE PO SCH ×2 (09:46→21:08)
[2017-05-27] MEDS: CARVEDILOL 25 MG TABLET PO SCH ×2 (09:46→21:07)
[2017-05-27] MEDS: SODIUM POLYSTYRENE SULFATE 15 GM/60 ML BOTTLE PO SCH (09:47)
[2017-05-27] MEDS: COLLAGENASE OINT 30 GM TUBE TOP SCH (09:48)
[2017-05-27] MEDS: POLYETHYLENE GLYCOL POWDER 17 GM PACK PO SCH (09:48)
[2017-05-27] MEDS: TAMSULOSIN 0.4 MG CAPSULE PO SCH ×2 (13:12→21:07)
[2017-05-27] MEDS ORDERED: ENOXAPARIN 30 MG/0.3 ML SYRINGE SUBCUT SCH (14:00)
[2017-05-27] MEDS: ENOXAPARIN 40 MG/0.4 ML SYRINGE SUBCUT SCH (14:42)
[2017-05-27] MEDS: HYDROmorphone 2 MG TABLET PO PRN (14:43)
[2017-05-28] MEDS: SODIUM ACETATE 150 MEQ in STERILE WATER INJ 1,000 ML IV SCH (02:51)
[2017-05-28 06:50] LABS: Eosinophils % 0.7 % (0.00-10.9); Immature Granulocytes % 0.7 %; Immature Granulocytes Absolute 0.04 #; Lymphocytes # 0.1 10*3/uL (1.4-4.0); Lymphocytes % 1.5 % (21.2-54.2); Mean Corpuscular HGB Conc 30.4 GM/DL (32-36); Mean Corpuscular Hemoglobin 24 PG (27-34); Mean Corpuscular Volume 77.2 FL (87-102); Monocytes # 0.5 10*3/uL (0.11-0.8); Monocytes % 8.1 % (1.7-12.7); Neutrophils # 5.4 10*3/uL (1.4-7.4); Platelet Count 111 T/CUMM (130-400); Red Blood Count 2.98 MC/CUMM (3.8-5.5); Red Cell Distribution Width 18.2 % (9.3-17.3); White Blood Count 6.1 T/CUMM (4-12)
[2017-05-28 07:15] LABS: Band Neutrophils 1 % (0-10); Eosinophils 1 % (0-10); Giant Platelets Few; Hypochromasia 1+; Lymphocytes 2 % (20-55); Microcytosis Slight; Ovalocytes Slight; Platelet Estimate Decreased; Segmented Neutrophils 92 % (50-85); Total Cells Counted 100
[2017-05-28 07:20] LABS: Albumin 1.5 G/DL (3.4-5.0); Bilirubin,Total 0.7 MG/DL (0.2-1.0); Magnesium 2.1 MG/DL (1.8-2.4); Osmolality,Calculated 296.4 MOS/KG (273-304); Potassium 4.7 MMOL/L (3.5-5.1)
[2017-05-28] MEDS ORDERED: SODIUM CHLORIDE 0.9% 250 ML IV PRN (08:44)
[2017-05-28] MEDS: INSULIN GLARGINE 100 UNIT/ML SUBCUT SCH (09:40)
[2017-05-28] MEDS: INSULIN LISPRO 100 UNIT/ML SUBCUT SCH ×4 (09:40→20:26)
[2017-05-28] MEDS: DILTIAZEM CD 120 MG CAPSULE PO SCH (09:41)
[2017-05-28] MEDS: BICALUTAMIDE 50 MG TABLET PO SCH (09:41)
[2017-05-28] MEDS: DOCUSATE SODIUM 100 MG CAPSULE PO SCH ×2 (09:41→20:22)
[2017-05-28] MEDS: CARVEDILOL 25 MG TABLET PO SCH ×2 (09:41→20:22)
[2017-05-28] MEDS: TAMSULOSIN 0.4 MG CAPSULE PO SCH ×2 (09:41→20:22)
[2017-05-28] MEDS: SODIUM HYPOCHLORITE 0.25% IRRIG 473 ML BOTTLE TOP SCH (09:42)
[2017-05-28] MEDS: COLLAGENASE OINT 30 GM TUBE TOP SCH (09:42)
[2017-05-28] MEDS: POLYETHYLENE GLYCOL POWDER 17 GM PACK PO SCH (09:42)
[2017-05-28] MEDS: SODIUM POLYSTYRENE SULFATE 15 GM/60 ML BOTTLE PO SCH (09:42)
[2017-05-28] MEDS: ENOXAPARIN 40 MG/0.4 ML SYRINGE SUBCUT SCH (14:00)
[2017-05-29] MEDS: HYDROmorphone 2 MG/1 ML VIAL IV PRN ×2 (01:35→13:52)
[2017-05-29 05:16] LABS: Eosinophils # 0.1 10*3/uL (0.0-0.87); Hematocrit 26.7 VOL% (42.0-52.0); Hemoglobin 8.3 GM/DL (14.0-18.0); Immature Granulocytes % 1.4 %; Immature Granulocytes Absolute 0.08 #; Lymphocytes # 0.1 10*3/uL (1.4-4.0); Lymphocytes % 1.7 % (21.2-54.2); Mean Corpuscular HGB Conc 31.1 GM/DL (32-36); Mean Corpuscular Hemoglobin 25 PG (27-34); Mean Corpuscular Volume 78.8 FL (87-102); Monocytes # 0.5 10*3/uL (0.11-0.8); Monocytes % 7.9 % (1.7-12.7); Neutrophils # 5.1 10*3/uL (1.4-7.4); Platelet Count 107 T/CUMM (130-400); Red Blood Count 3.39 MC/CUMM (3.8-5.5); Red Cell Distribution Width 17.6 % (9.3-17.3); White Blood Count 5.8 T/CUMM (4-12)
[2017-05-29 05:33] LABS: Alanine Aminotransferase 10 U/L (16-61); Albumin 1.5 G/DL (3.4-5.0); Alkaline Phosphatase 106 U/L (45-117); Aspartate Amino Transferase 13 U/L (0-37); Bilirubin,Total < 0.39 MG/DL (0.2-1.0); Blood Urea Nitrogen 68 MG/DL (7-18); Calcium 8.1 MG/DL (8.5-10.1); Glucose 92 MG/DL (74-106); Magnesium 1.9 MG/DL (1.8-2.4); Osmolality,Calculated 298.4 MOS/KG (273-304); Potassium 4.3 MMOL/L (3.5-5.1); Sodium 140 MMOL/L (136-145); Total Protein 4.2 G/DL (6.4-8.3)
[2017-05-29 05:42] LABS: Band Neutrophils 3 % (0-10); Eosinophils 1 % (0-10); Hypochromasia 2+; Lymphocytes 2 % (20-55); Metamyelocytes 2 %; Platelet Estimate Decreased; Segmented Neutrophils 86 % (50-85); Total Cells Counted 100
[2017-05-29] MEDS: INSULIN LISPRO 100 UNIT/ML SUBCUT SCH ×4 (08:11→21:36)
[2017-05-29] MEDS: SODIUM POLYSTYRENE SULFATE 15 GM/60 ML BOTTLE PO SCH (08:14)
[2017-05-29] MEDS: INSULIN GLARGINE 100 UNIT/ML SUBCUT SCH (08:14)
[2017-05-29] MEDS: COLLAGENASE OINT 30 GM TUBE TOP SCH (08:14)
[2017-05-29] MEDS: CARVEDILOL 25 MG TABLET PO SCH ×2 (08:32→20:56)
[2017-05-29] MEDS: DILTIAZEM CD 120 MG CAPSULE PO SCH (08:32)
[2017-05-29] MEDS: BICALUTAMIDE 50 MG TABLET PO SCH (08:32)
[2017-05-29] MEDS: TAMSULOSIN 0.4 MG CAPSULE PO SCH ×2 (08:33→20:56)
[2017-05-29] MEDS: DOCUSATE SODIUM 100 MG CAPSULE PO SCH ×2 (08:33→20:56)
[2017-05-29] MEDS: fentaNYL 100 MCG/HR PATCH TRANSDERM SCH (08:33)
[2017-05-29] MEDS: SODIUM HYPOCHLORITE 0.25% IRRIG 473 ML BOTTLE TOP SCH (08:34)
[2017-05-29] MEDS: POLYETHYLENE GLYCOL POWDER 17 GM PACK PO SCH (08:34)
[2017-05-29] MEDS: ENOXAPARIN 40 MG/0.4 ML SYRINGE SUBCUT SCH (14:15)
[2017-05-29] MEDS ORDERED: TUBERCULIN SKIN TEST 0.1 ML SYRINGE INTRADERM ONE (15:25)
[2017-05-30] MEDS: HYDROmorphone 2 MG/1 ML VIAL IV PRN (00:20)
[2017-05-30 05:30] LABS: Eosinophils % 0.6 % (0.00-10.9); Hematocrit 27.4 VOL% (42.0-52.0); Hemoglobin 8.2 GM/DL (14.0-18.0); Immature Granulocytes % 1.1 %; Immature Granulocytes Absolute 0.05 #; Lymphocytes # 0.1 10*3/uL (1.4-4.0); Lymphocytes % 2.7 % (21.2-54.2); Mean Corpuscular HGB Conc 29.9 GM/DL (32-36); Mean Corpuscular Hemoglobin 24 PG (27-34); Mean Corpuscular Volume 80.6 FL (87-102); Monocytes # 0.4 10*3/uL (0.11-0.8); Monocytes % 7.8 % (1.7-12.7); Neutrophils # 4.2 10*3/uL (1.4-7.4); Neutrophils % 87.8 % (38.7-73.9); Platelet Count 116 T/CUMM (130-400); Red Cell Distribution Width 17.5 % (9.3-17.3); White Blood Count 4.7 T/CUMM (4-12)
[2017-05-30 05:48] LABS: Alanine Aminotransferase 9 U/L (16-61); Albumin 1.5 G/DL (3.4-5.0); Alkaline Phosphatase 106 U/L (45-117); Aspartate Amino Transferase 11 U/L (0-37); Bilirubin,Total < 0.39 MG/DL (0.2-1.0); Blood Urea Nitrogen 63 MG/DL (7-18); Calcium 8.2 MG/DL (8.5-10.1); Glucose 111 MG/DL (74-106); Osmolality,Calculated 299.3 MOS/KG (273-304); Potassium 4.3 MMOL/L (3.5-5.1); Sodium 141 MMOL/L (136-145); Total Protein 4.3 G/DL (6.4-8.3)
[2017-05-30 06:57] LABS: Hypochromasia 1+; Lymphocytes 1 % (20-55); Macrocytosis 1+; Platelet Estimate Decreased; Segmented Neutrophils 92 % (50-85); Total Cells Counted 100
[2017-05-30] MEDS: INSULIN LISPRO 100 UNIT/ML SUBCUT SCH ×4 (07:23→21:02)
[2017-05-30] MEDS: BICALUTAMIDE 50 MG TABLET PO SCH (09:41)
[2017-05-30] MEDS: TAMSULOSIN 0.4 MG CAPSULE PO SCH ×2 (09:41→20:50)
[2017-05-30] MEDS: DILTIAZEM CD 120 MG CAPSULE PO SCH (09:41)
[2017-05-30] MEDS: CARVEDILOL 25 MG TABLET PO SCH ×2 (09:42→20:50)
[2017-05-30] MEDS: HYDROmorphone 2 MG TABLET PO PRN ×3 (09:42→21:14)
[2017-05-30] MEDS: PANTOPRAZOLE 40 MG TABLET PO PRN (09:42)
[2017-05-30] MEDS: POLYETHYLENE GLYCOL POWDER 17 GM PACK PO SCH (09:45)
[2017-05-30] MEDS: ENOXAPARIN 40 MG/0.4 ML SYRINGE SUBCUT SCH ×2 (09:47→15:24)
[2017-05-30] MEDS: DOCUSATE SODIUM 100 MG CAPSULE PO SCH ×2 (11:24→20:50)
[2017-05-30] MEDS: SODIUM POLYSTYRENE SULFATE 15 GM/60 ML BOTTLE PO SCH (11:24)
[2017-05-30] MEDS: fentaNYL 75 MCG/HR PATCH TRANSDERM SCH (14:44)
[2017-05-30] MEDS: COLLAGENASE OINT 30 GM TUBE TOP SCH (14:47)
[2017-05-30] MEDS: SODIUM HYPOCHLORITE 0.25% IRRIG 473 ML BOTTLE TOP SCH (14:47)
[2017-05-31] MEDS: CARVEDILOL 25 MG TABLET PO SCH ×2 (09:25→21:27)
[2017-05-31] MEDS: DILTIAZEM CD 120 MG CAPSULE PO SCH (09:26)
[2017-05-31] MEDS: BICALUTAMIDE 50 MG TABLET PO SCH (09:26)
[2017-05-31] MEDS: PANTOPRAZOLE 40 MG TABLET PO PRN (09:26)
[2017-05-31] MEDS: TAMSULOSIN 0.4 MG CAPSULE PO SCH ×2 (09:26→21:27)
[2017-05-31] MEDS: SUCRALFATE 1 GM/10 ML UDCUP PO SCH ×4 (09:27→21:29)
[2017-05-31] MEDS: GABAPENTIN 300 MG CAPSULE PO SCH ×3 (09:27→21:27)
[2017-05-31] MEDS: HYDROmorphone 2 MG TABLET PO PRN ×2 (09:28→13:31)
[2017-05-31] MEDS: ENOXAPARIN 40 MG/0.4 ML SYRINGE SUBCUT SCH ×2 (09:42→16:19)
[2017-05-31] MEDS: POLYETHYLENE GLYCOL POWDER 17 GM PACK PO SCH (09:44)
[2017-05-31] MEDS: COLLAGENASE OINT 30 GM TUBE TOP SCH (09:44)
[2017-05-31] MEDS: SODIUM HYPOCHLORITE 0.25% IRRIG 473 ML BOTTLE TOP SCH (09:45)
[2017-05-31] MEDS: DOCUSATE SODIUM 100 MG CAPSULE PO SCH ×2 (09:45→21:27)
[2017-05-31] MEDS: INSULIN LISPRO 100 UNIT/ML SUBCUT SCH ×3 (09:46→16:25)
[2017-06-01] MEDS: INSULIN LISPRO 100 UNIT/ML SUBCUT SCH ×5 (02:24→22:07)
[2017-06-01 05:54] LABS: Eosinophils # 0.1 10*3/uL (0.0-0.87); Eosinophils % 1.7 % (0.00-10.9); Hematocrit 24.1 VOL% (42.0-52.0); Hemoglobin 7.2 GM/DL (14.0-18.0); Immature Granulocytes % 0.8 %; Immature Granulocytes Absolute 0.03 #; Lymphocytes # 0.1 10*3/uL (1.4-4.0); Lymphocytes % 3.9 % (21.2-54.2); Mean Corpuscular HGB Conc 29.9 GM/DL (32-36); Mean Corpuscular Hemoglobin 25 PG (27-34); Mean Corpuscular Volume 82.5 FL (87-102); Monocytes # 0.4 10*3/uL (0.11-0.8); Monocytes % 9.6 % (1.7-12.7); Neutrophils # 3.1 10*3/uL (1.4-7.4); Red Blood Count 2.92 MC/CUMM (3.8-5.5); Red Cell Distribution Width 17.4 % (9.3-17.3); White Blood Count 3.6 T/CUMM (4-12)
[2017-06-01 05:57] LABS: Platelet Count 72 T/CUMM (130-400)
[2017-06-01 06:21] LABS: Alanine Aminotransferase < 9 U/L (16-61); Albumin 1.4 G/DL (3.4-5.0); Alkaline Phosphatase 93 U/L (45-117); Aspartate Amino Transferase 11 U/L (0-37); Bilirubin,Total < 0.39 MG/DL (0.2-1.0); Blood Urea Nitrogen 57 MG/DL (7-18); Calcium 8.3 MG/DL (8.5-10.1); Glucose 87 MG/DL (74-106); Osmolality,Calculated 295.3 MOS/KG (273-304); Potassium 3.9 MMOL/L (3.5-5.1); Sodium 141 MMOL/L (136-145); Total Protein 4.2 G/DL (6.4-8.3)
[2017-06-01 06:41] LABS: Band Neutrophils 3 % (0-10); Lymphocytes 7 % (20-55); Platelet Estimate Decreased; Segmented Neutrophils 88 % (50-85); Total Cells Counted 100
[2017-06-01 06:42] LABS: Hypochromasia 2+
[2017-06-01] MEDS ORDERED: SODIUM CHLORIDE 0.9% 250 ML IV PRN (08:34)
[2017-06-01] MEDS: DILTIAZEM CD 120 MG CAPSULE PO SCH (09:28)
[2017-06-01] MEDS: GABAPENTIN 300 MG CAPSULE PO SCH ×3 (09:29→20:41)
[2017-06-01] MEDS: TAMSULOSIN 0.4 MG CAPSULE PO SCH ×2 (09:29→20:42)
[2017-06-01] MEDS: PANTOPRAZOLE 40 MG TABLET PO PRN (09:29)
[2017-06-01] MEDS: BICALUTAMIDE 50 MG TABLET PO SCH (09:29)
[2017-06-01] MEDS: CARVEDILOL 25 MG TABLET PO SCH ×2 (09:29→20:41)
[2017-06-01] MEDS: SUCRALFATE 1 GM/10 ML UDCUP PO SCH ×4 (09:30→20:42)
[2017-06-01] MEDS: SODIUM HYPOCHLORITE 0.25% IRRIG 473 ML BOTTLE TOP SCH (09:30)
[2017-06-01] MEDS: DOCUSATE SODIUM 100 MG CAPSULE PO SCH ×2 (09:30→20:41)
[2017-06-01] MEDS: POLYETHYLENE GLYCOL POWDER 17 GM PACK PO SCH (09:30)
[2017-06-01] MEDS: COLLAGENASE OINT 30 GM TUBE TOP SCH (09:31)
[2017-06-01] MEDS: HYDROmorphone 2 MG TABLET PO PRN ×2 (10:51→19:45)
[2017-06-01 11:10] LABS: Calcium 7.8 MG/DL (8.5-10.1); Osmolality,Calculated 296.4 MOS/KG (273-304); Potassium 3.8 MMOL/L (3.5-5.1)
[2017-06-02 04:46] LABS: Eosinophils % 1.1 % (0.00-10.9); Hematocrit 28.6 VOL% (42.0-52.0); Hemoglobin 8.6 GM/DL (14.0-18.0); Immature Granulocytes % 0.6 %; Immature Granulocytes Absolute 0.02 #; Lymphocytes # 0.2 10*3/uL (1.4-4.0); Lymphocytes % 4.4 % (21.2-54.2); Mean Corpuscular HGB Conc 30.1 GM/DL (32-36); Mean Corpuscular Hemoglobin 25 PG (27-34); Mean Corpuscular Volume 82.7 FL (87-102); Monocytes # 0.3 10*3/uL (0.11-0.8); Neutrophils # 3.1 10*3/uL (1.4-7.4); Neutrophils % 85.9 % (38.7-73.9); Red Blood Count 3.46 MC/CUMM (3.8-5.5); Red Cell Distribution Width 16.4 % (9.3-17.3); White Blood Count 3.6 T/CUMM (4-12)
[2017-06-02 04:55] LABS: Platelet Count 61 T/CUMM (130-400)
[2017-06-02 05:26] LABS: Eosinophils 1 % (0-10); Hypochromasia 1+; Lymphocytes 3 % (20-55); Microcytosis Slight; Ovalocytes Slight; Platelet Estimate Decreased; Segmented Neutrophils 83 % (50-85); Total Cells Counted 100
[2017-06-02] MEDS: HYDROmorphone 2 MG TABLET PO PRN ×2 (06:27→16:24)
[2017-06-02] MEDS: COLLAGENASE OINT 30 GM TUBE TOP SCH (08:13)
[2017-06-02] MEDS: INSULIN LISPRO 100 UNIT/ML SUBCUT SCH ×4 (08:14→23:09)
[2017-06-02] MEDS: DILTIAZEM CD 120 MG CAPSULE PO SCH (09:08)
[2017-06-02] MEDS: GABAPENTIN 300 MG CAPSULE PO SCH ×3 (09:08→21:27)
[2017-06-02] MEDS: SODIUM POLYSTYRENE SULFATE 15 GM/60 ML BOTTLE PO SCH (09:08)
[2017-06-02] MEDS: SUCRALFATE 1 GM/10 ML UDCUP PO SCH ×4 (09:08→21:28)
[2017-06-02] MEDS: DOCUSATE SODIUM 100 MG CAPSULE PO SCH ×2 (09:09→21:27)
[2017-06-02] MEDS: TAMSULOSIN 0.4 MG CAPSULE PO SCH ×2 (09:09→21:27)
[2017-06-02] MEDS: BICALUTAMIDE 50 MG TABLET PO SCH (09:09)
[2017-06-02] MEDS: POLYETHYLENE GLYCOL POWDER 17 GM PACK PO SCH (09:10)
[2017-06-02] MEDS: fentaNYL 75 MCG/HR PATCH TRANSDERM SCH (09:10)
[2017-06-02] MEDS: SODIUM HYPOCHLORITE 0.25% IRRIG 473 ML BOTTLE TOP SCH (09:11)
[2017-06-02] MEDS: CARVEDILOL 25 MG TABLET PO SCH ×2 (09:11→21:27)
[2017-06-03] MEDS: HYDROmorphone 2 MG TABLET PO PRN ×3 (02:24→12:04)
[2017-06-03] MEDS: SUCRALFATE 1 GM/10 ML UDCUP PO SCH (09:35)
[2017-06-03] MEDS: GABAPENTIN 300 MG CAPSULE PO SCH (09:35)
[2017-06-03] MEDS: DOCUSATE SODIUM 100 MG CAPSULE PO SCH (09:35)
[2017-06-03] MEDS: TAMSULOSIN 0.4 MG CAPSULE PO SCH (09:35)
[2017-06-03] MEDS: BICALUTAMIDE 50 MG TABLET PO SCH (09:35)
[2017-06-03] MEDS: CARVEDILOL 25 MG TABLET PO SCH (09:35)
[2017-06-03] MEDS: DILTIAZEM CD 120 MG CAPSULE PO SCH (09:35)
[2017-06-03] MEDS: COLLAGENASE OINT 30 GM TUBE TOP SCH (09:36)
[2017-06-03] MEDS: POLYETHYLENE GLYCOL POWDER 17 GM PACK PO SCH (09:36)
[2017-06-03] MEDS: INSULIN LISPRO 100 UNIT/ML SUBCUT SCH (09:36)
[2017-06-03] MEDS: SODIUM HYPOCHLORITE 0.25% IRRIG 473 ML BOTTLE TOP SCH (09:38)
[2017-06-03 11:46] VITALS: BP 127/64
[2017-06-03 19:11] LABS: HIT Interpretation Negative (Negative)
== END 2017-06-03 12:10 | disposition home health service (06) | DRG 477 ==
LOC: N.ED 14:47 → SUATTDRO 16:40 → N.EDINP 17:40 → SUATTDRO 17:41 → N.4E 17:51 → N.ICU 05-19 10:07 → N.4E 05-20 16:02
PROVIDERS: ADMIT Internal Medicine; ATTEND Specialist

== ENCOUNTER 2017-06-18 13:08 | Inpatient (IN) ==
[2017-06-18] MEDS ORDERED: SODIUM CHLORIDE 0.9% 1,000 ML IV STA (13:27)
[2017-06-18] MEDS ORDERED: MORPHINE 2 MG/1 ML SYRINGE IV PRN (13:27)
[2017-06-18] MEDS ORDERED: ONDANSETRON 4 MG/2 ML VIAL IV PRN ×2 (13:27→17:28)
[2017-06-18] MEDS ORDERED: ASPIRIN 325 MG TABLET PO STA (13:27)
[2017-06-18] MEDS ORDERED: SODIUM CHLORIDE 0.9% 1,000 ML IV PRN (13:28)
[2017-06-18] MEDS ORDERED: MORPHINE 2 MG/1 ML SYRINGE ONE (14:06)
[2017-06-18] MEDS ORDERED: ONDANSETRON 4 MG/2 ML VIAL ONE (14:06)
[2017-06-18] MEDS ORDERED: ASPIRIN 325 MG TABLET ONE (14:06)
[2017-06-18 14:19] LABS: Basophils % 0.3 % (0.0-0.8); Eosinophils % 0.3 % (0.00-10.9); Hematocrit 29.1 VOL% (42.0-52.0); Hemoglobin 9.2 GM/DL (14.0-18.0); Immature Granulocytes % 1.9 %; Immature Granulocytes Absolute 0.14 #; Lymphocytes # 0.4 10*3/uL (1.4-4.0); Lymphocytes % 5.5 % (21.2-54.2); Mean Corpuscular HGB Conc 31.6 GM/DL (32-36); Mean Corpuscular Hemoglobin 25 PG (27-34); Mean Corpuscular Volume 78.6 FL (87-102); Mean Platelet Volume 11.6 FL (9.6-12.0); Monocytes # 0.9 10*3/uL (0.11-0.8); Monocytes % 11.5 % (1.7-12.7); Neutrophils % 80.5 % (38.7-73.9); Platelet Count 264 T/CUMM (130-400); Red Cell Distribution Width 18.1 % (9.3-17.3); White Blood Count 7.4 T/CUMM (4-12)
[2017-06-18 14:29] LABS: INR 1.1; PT Patient Result 11.6 SECS; Partial Thromboplastin Time 36.2 SECS (0-40)
[2017-06-18 14:40] LABS: Alanine Aminotransferase 11 U/L (16-61); Albumin 1.9 G/DL (3.4-5.0); Alkaline Phosphatase 161 U/L (45-117); Aspartate Amino Transferase 23 U/L (0-37); Bilirubin,Total < 0.39 MG/DL (0.2-1.0); Blood Urea Nitrogen 106 MG/DL (7-18); Calcium 8.5 MG/DL (8.5-10.1); Glucose 115 MG/DL (74-106); Osmolality,Calculated 306.8 MOS/KG (273-304); Potassium 4.1 MMOL/L (3.5-5.1); Sodium 137 MMOL/L (136-145); Total Protein 5.6 G/DL (6.4-8.3)
[2017-06-18 14:42] LABS: Lactic Acid 0.7 MMOL/L (0.4-2.0)
[2017-06-18] MEDS ORDERED: guaiFENesin 200 MG/10 ML UDCUP PO PRN (17:28)
[2017-06-18] MEDS ORDERED: TEMAZEPAM 7.5 MG CAPSULE PO PRN (17:28)
[2017-06-18] MEDS ORDERED: ALUMINUM/MAGNES/SIMETH MAX STR 30 ML UDCUP PO PRN (17:28)
[2017-06-18] MEDS ORDERED: MYLANTA/LIDO VISC 2:1 300 ML BOTTLE SWISH/SPIT PRN (17:28)
[2017-06-18] MEDS ORDERED: MYLANTA/LIDO VISC 2:1 300 ML BOTTLE SWISH/SWAL PRN (17:28)
[2017-06-18] MEDS ORDERED: BENZTROPINE 2 MG/2 ML AMP IV PRN (17:28)
[2017-06-18] MEDS ORDERED: MAGNESIUM HYDROXIDE SUSP 30 ML UDCUP PO PRN (17:28)
[2017-06-18] MEDS ORDERED: ACETAMINOPHEN 325 MG TABLET PO PRN (17:28)
[2017-06-18] MEDS ORDERED: PROMETHAZINE INJ 25 MG in SODIUM CHLORIDE 0.9% 50 ML IV PRN (17:28)
[2017-06-18] MEDS ORDERED: chlorproMAZINE INJ 50 MG in SODIUM CHLORIDE 0.9% 100 ML IV PRN (17:28)
[2017-06-18] MEDS ORDERED: chlorproMAZINE 25 MG TABLET PO PRN (17:28)
[2017-06-18] MEDS ORDERED: diphenhydrAMINE CAP 25 MG CAPSULE PO PRN (17:28)
[2017-06-18] MEDS ORDERED: traMADol 50 MG TABLET PO PRN (17:28)
[2017-06-18] MEDS ORDERED: chlorproMAZINE INJ 25 MG in SODIUM CHLORIDE 0.9% 100 ML IV PRN (17:28)
[2017-06-18] MEDS ORDERED: LOPERAMIDE 2 MG CAPSULE PO PRN ×2 (17:28)
[2017-06-18] MEDS ORDERED: LACTULOSE 20 GM/30 ML UDCUP PO PRN (17:28)
[2017-06-18] MEDS ORDERED: ALPRAZolam 0.25 MG TABLET PO PRN (17:28)
[2017-06-18] MEDS: SODIUM CHLORIDE 0.9% 1,000 ML IV SCH (18:46)
[2017-06-18] MEDS: HYDROmorphone 2 MG/1 ML VIAL IV PRN ×2 (19:11→23:09)
[2017-06-19 01:36] LABS: Apearance,Urine Turbid (Clear); Bacteria,Urine Many /HPF (Few); Glucose,Urine (UA) Negative (Negative); Ketones,Urine Negative (Negative); Nitrite,Urine Negative (Negative); Protein,Urine 100 MG/DL; Urine Color Yellow (Yellow); Urine Specific Gravity 1.015 (1.001-1.035); WBC,Urine 7298 /HPF (0-6)
[2017-06-19 01:37] LABS: Bilirubin,Urine Negative (Negative); Blood, Urine 0.03 mg/dL (Negative)
[2017-06-19 01:39] LABS: Urine Urobilinogen < 2.0 EU/DL (0.2-1.0)
[2017-06-19 01:40] LABS: RBC,Urine 0 /HPF (0-4)
[2017-06-19] MEDS: HYDROmorphone 2 MG/1 ML VIAL IV PRN ×6 (01:51→23:21)
[2017-06-19] MEDS: SODIUM CHLORIDE 0.9% 1,000 ML IV SCH ×3 (03:04→19:16)
[2017-06-19] MEDS ORDERED: HYDROmorphone 2 MG TABLET PO PRN (07:41)
[2017-06-19 07:54] LABS: Eosinophils % 0.4 % (0.00-10.9); Hematocrit 26.1 VOL% (42.0-52.0); Immature Granulocytes % 1.3 %; Immature Granulocytes Absolute 0.07 #; Lymphocytes # 0.2 10*3/uL (1.4-4.0); Lymphocytes % 4.3 % (21.2-54.2); Mean Corpuscular HGB Conc 30.7 GM/DL (32-36); Mean Corpuscular Hemoglobin 25 PG (27-34); Mean Corpuscular Volume 80.6 FL (87-102); Mean Platelet Volume 9.2 FL (9.6-12.0); Monocytes # 0.7 10*3/uL (0.11-0.8); Monocytes % 12.1 % (1.7-12.7); Neutrophils # 4.6 10*3/uL (1.4-7.4); Neutrophils % 81.9 % (38.7-73.9); Platelet Count 174 T/CUMM (130-400); Red Blood Count 3.24 MC/CUMM (3.8-5.5); Red Cell Distribution Width 18.2 % (9.3-17.3); White Blood Count 5.6 T/CUMM (4-12)
[2017-06-19] MEDS: ALLOPURINOL 100 MG TABLET PO SCH (08:20)
[2017-06-19] MEDS: CARVEDILOL 25 MG TABLET PO SCH ×2 (08:20→20:36)
[2017-06-19] MEDS: ASPIRIN EC 81 MG TABLET PO SCH (08:20)
[2017-06-19] MEDS: PANTOPRAZOLE 40 MG TABLET PO SCH (08:20)
[2017-06-19] MEDS: GABAPENTIN 300 MG CAPSULE PO SCH ×3 (08:21→20:35)
[2017-06-19] MEDS: CHOLECALCIFEROL 1,000 UNIT TABLET PO SCH (08:21)
[2017-06-19] MEDS: DILTIAZEM CD 120 MG CAPSULE PO SCH (08:21)
[2017-06-19] MEDS: TAMSULOSIN 0.4 MG CAPSULE PO SCH ×2 (08:21→20:35)
[2017-06-19] MEDS: FONDAPARINUX 2.5 MG/0.5 ML SYRINGE SUBCUT SCH (08:22)
[2017-06-19] MEDS: cefTRIAXone 1,000 MG in SYRINGE 1 EACH IV SCH (08:24)
[2017-06-19 08:31] LABS: Band Neutrophils 1 % (0-10); Giant Platelets Few; Hypochromasia 1+; Lymphocytes 1 % (20-55); Ovalocytes Slight; Platelet Estimate Normal; Segmented Neutrophils 87 % (50-85); Total Cells Counted 100
[2017-06-19 08:32] LABS: Microcytosis Slight
[2017-06-19 08:36] LABS: Alanine Aminotransferase < 9 U/L (16-61); Albumin 1.6 G/DL (3.4-5.0); Alkaline Phosphatase 139 U/L (45-117); Aspartate Amino Transferase 21 U/L (0-37); Bilirubin,Total < 0.39 MG/DL (0.2-1.0); Blood Urea Nitrogen 106 MG/DL (7-18); Calcium 8.2 MG/DL (8.5-10.1); Glucose 83 MG/DL (74-106); Osmolality,Calculated 308.5 MOS/KG (273-304); Potassium 4.2 MMOL/L (3.5-5.1); Sodium 139 MMOL/L (136-145)
[2017-06-19] MEDS ORDERED: fentaNYL 75 MCG/HR PATCH TRANSDERM SCH (09:00)
[2017-06-19] MEDS: DOCUSATE SODIUM 100 MG CAPSULE PO SCH ×2 (13:51→20:41)
[2017-06-19] MEDS: ZINC OXIDE PASTE 113 GM TUBE TOP SCH ×2 (14:30→20:38)
[2017-06-20] MEDS: DOCUSATE SODIUM 100 MG CAPSULE PO SCH ×2 (01:17→09:08)
[2017-06-20] MEDS: HYDROmorphone 2 MG/1 ML VIAL IV PRN ×4 (01:17→15:03)
[2017-06-20] MEDS: SODIUM CHLORIDE 0.9% 1,000 ML IV SCH ×2 (03:17→10:49)
[2017-06-20 06:28] LABS: Basophils % 0.2 % (0.0-0.8); Eosinophils % 0.3 % (0.00-10.9); Hematocrit 26.3 VOL% (42.0-52.0); Hemoglobin 7.8 GM/DL (14.0-18.0); Immature Granulocytes % 0.7 %; Immature Granulocytes Absolute 0.06 #; Lymphocytes # 0.2 10*3/uL (1.4-4.0); Lymphocytes % 2.3 % (21.2-54.2); Mean Corpuscular HGB Conc 29.7 GM/DL (32-36); Mean Corpuscular Hemoglobin 25 PG (27-34); Mean Corpuscular Volume 82.4 FL (87-102); Mean Platelet Volume 9.3 FL (9.6-12.0); Monocytes % 11.2 % (1.7-12.7); Neutrophils # 7.3 10*3/uL (1.4-7.4); Neutrophils % 85.3 % (38.7-73.9); Platelet Count 178 T/CUMM (130-400); Red Blood Count 3.19 MC/CUMM (3.8-5.5); Red Cell Distribution Width 18.4 % (9.3-17.3); White Blood Count 8.6 T/CUMM (4-12)
[2017-06-20 06:46] LABS: Calcium 8.3 MG/DL (8.5-10.1); Magnesium 1.6 MG/DL (1.8-2.4); Osmolality,Calculated 305.7 MOS/KG (273-304); Potassium 4.6 MMOL/L (3.5-5.1)
[2017-06-20] MEDS: DILTIAZEM CD 120 MG CAPSULE PO SCH (08:02)
[2017-06-20] MEDS: CARVEDILOL 25 MG TABLET PO SCH (08:02)
[2017-06-20] MEDS: cefTRIAXone 1,000 MG in SYRINGE 1 EACH IV SCH (09:07)
[2017-06-20] MEDS: FONDAPARINUX 2.5 MG/0.5 ML SYRINGE SUBCUT SCH (09:07)
[2017-06-20] MEDS: PANTOPRAZOLE 40 MG TABLET PO SCH (09:08)
[2017-06-20] MEDS: ASPIRIN EC 81 MG TABLET PO SCH (09:08)
[2017-06-20] MEDS: ZINC OXIDE PASTE 113 GM TUBE TOP SCH (09:08)
[2017-06-20] MEDS: CHOLECALCIFEROL 1,000 UNIT TABLET PO SCH (09:08)
[2017-06-20] MEDS: GABAPENTIN 300 MG CAPSULE PO SCH ×2 (09:08→15:03)
[2017-06-20] MEDS: ALLOPURINOL 100 MG TABLET PO SCH (09:09)
[2017-06-20 16:50] VITALS: BP 78/42
== END 2017-06-20 18:45 | disposition expired | DRG 683 ==
LOC: EDUNIT# → EDBD → N.ED 13:08 → N.EDINP 15:40 → N.4E 17:05
PROVIDERS: ADMIT Specialist; ATTEND Specialist